=== PATIENT | male | born 1935 | race African-American/Black ===

== ENCOUNTER 2019-01-16 19:52 | Inpatient (IN) | payer MEDICARE, OTHER ==
--- NOTE | 2019-01-16 20:32 | ED Physician Chart ---
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 His care takers at the [facility] thought patient's left-sided weakness was more than it usually is this morning and he also had increased blood pressure, not stated to the daughter how high. Allergies:: Allergies Allergy/AdvReac Type Severity Reaction Status Date / Time codeine Allergy Verified 01/16/19 20:10 lactose Allergy Verified 01/16/19 20:10 morphine Allergy Verified 01/16/19 20:10 Penicillins Allergy Verified 01/16/19 20:10 Vitals:: Vital Signs - 8 hr 01/16/19 19:55 Temp 98.1 F HR 64 RR 20 BP 111/55 O2 Sat % 97 Historian:: Patient, Family Member Review:: Nurse's Note Reviewed ED Review of Systems - Review of Systems General/Constitutional: No fever Skin: No skin lesions Head: No headache Eyes: No loss of vision ENT: No earache Neck: No neck pain Cardio Vascular: No chest pain, No palpitations Pulmonary: No SOB GI: No nausea, No vomiting, No diarrhea G/U: No dysuria Musculoskeletal: No bone or joint pain, No back pain, No muscle pain Endocrine: No polyuria Psychiatric: No prior psych history, No depression, No anxiety Hematopoietic: No bruising Allergic/Immuno: No urticaria Neurological: No syncope, Focal symptoms ED Past Medical History - Past Medical History Past Medical History: HTN, Dyslipidemia (hyperlipidemia), Other (right arm tremor for many years) Family History: None Social History: Care Facility, Other (former smoker and alcohol consumer) Medication: Reviewed Family Medical History - Family Member Daughter Ethnicity: Non- Living Status: Still Living ED Physical Exam - Physical Examination General/Constitutional: Awake, Alert Other Gen/Cons comments:: Mildly chronically ill-appearing Head: Atraumatic Eyes: Lids, conjuctiva normal, PERRL Skin: Nl inspection, No rash, No skin lesions, No ecchymosis ENMT: External ears, nose nl, Oropharynx nl Other ENMT comments:: Few teeth present Neck: No nuchal rigidity, No bruit Respiratory: Nl effort/Exclusion, Clear to Auscultation Cardio Vascular: RRR, No murmur, gallop, rubs, NL S1 S2 GI: No tenderness/rebounding/guarding, No organomegaly, No hernia, Normal BS's, Nondistended, No mass/bruits Extremities: Normal digits & nails Other Neuro/Psych comments:: drooping right side of mouth and left sided weakness ED Labs/Radiology/EKG Results - Radiology Results Results: Chest x-ray showed cardiomegaly and pacemaker present; she has showed right temporal parietal infarct and right middle cerebral artery distribution, mild edema, no bleed, no shift, atrophy - EKG Interpretations Rate & Rhythm: atrial and ventricular pacemaker with a rate of 59 ED Septic Shock - <6hrs of presentation: Vital Signs: Vital Signs - 8 hr 01/16/ 19:55 Temp 98.1 F HR 64 RR 20 BP 111/55 O2 Sat % 97 ED Reassessment (Disposition) - Reassessment Reassessment Condition:: Unchanged - Diagnosis Diagnosis:: Right temporoparietal infarct - Patient Disposition Spoke to:: Jeramy Evans Admitting Medical Physician:: Jeramy Evans Condition at Disposition:: Stable, Unchanged
[2019-01-16 20:43] LABS: % BASOPHILS 0.1 % (0.0-2.0); % EOSINOPHILS 3.8 % (0.0-5.0); % LYMPHOCYTES 9.5 % (20.0-50.0); % NEUTROPHILS 77.6 % (40.0-80.0); EOSINOPHILE ABSOLUTE 0.4 Th/cmm (0.1-0.4); HEMOGLOBIN 13.8 gm/dL (12-16); MEAN CELL VOLUME 83.5 fl (80-99); MEAN CORPUSCULAR HEMOGLOBIN 27.5 pg (27.0-31.0); MEAN CORPUSCULAR HGB CONC 32.9 pg (28.0-36.0); MEAN PLATELET VOLUME 8.2 fl; NEUTROPHILE ABSOLUTE 8.6 Th/cmm (1.8-8.0); PLATELET COUNT 223 Th/cmm (150-400); RED BLOOD COUNT 5.03 Mil/cmm (3.80-5.80); RED CELL DISTRIBUTION WIDTH 14.2 % (11.5-20.0)
[2019-01-16 20:58] LABS: ANION GAP 15.1 (7.0-16.0); BUN - UREA NITROGEN 17 mg/dL (7-25); CALCIUM SERUM 6.6 mg/dL (8.6-10.3); CARBON DIOXIDE 21.9 mEq/L (21.0-31.0); CHLORIDE 105 mEq/L (98-107); CREATININE - SERUM 1.2 mg/dL (0.7-1.3); GLUCOSE 297 mg/dL (70-105); SODIUM SERUM 139 mEq/L (136-145)
[2019-01-16 23:42] VITALS: BP 150/69
[2019-01-17] MEDS ORDERED: GLUCAGON HCl 1 MG KIT IM PRN (00:46)
[2019-01-17] MEDS ORDERED: Dextrose 50% 50 mL Abboject IVP PRN (00:46)
[2019-01-17] MEDS ORDERED: Albuterol Nebulizer 2.5mg/3mL HHN PRN ×2 (00:49→01:00)
[2019-01-17] MEDS: INSULIN LISPRO SLIDING SCALE 100 UNITS/ML UNIT SUBQ SCH ×5 (01:16→21:08)
[2019-01-17] MEDS ORDERED: Maalox 30 mL Cup PO PRN (06:42)
[2019-01-17] MEDS ORDERED: Albuterol/Ipratropium Neb 3 ML AERS HHN PRN (06:42)
[2019-01-17] MEDS ORDERED: cefTRIAXone 1 GM in Sodium Chloride 0.9% 50 ML IV ONE (07:00)
[2019-01-17] MEDS: KCL 20mEq/100mL Premix 20 MEQ/100 ML PIGGYBACK IV SCH ×2 (07:54→11:04)
[2019-01-17 07:56] LABS: ANION GAP 15.8 (7.0-16.0); BUN - UREA NITROGEN 18 mg/dL (7-25); CALCIUM SERUM 6.7 mg/dL (8.6-10.3); CARBON DIOXIDE 23.1 mEq/L (21.0-31.0); CHLORIDE 107 mEq/L (98-107); CHOLESTEROL 104 mg/dL (<200); CREATININE - SERUM 1.2 mg/dL (0.7-1.3); HDL -HIGH DENSITY LIPOPROTEIN 23 mg/dL (23-92); SODIUM SERUM 143 mEq/L (136-145); TRIGLYCERIDES 85 mg/dL (<150)
[2019-01-17 07:59] LABS: % BASOPHILS 0.4 % (0.0-2.0); % EOSINOPHILS 4.2 % (0.0-5.0); % LYMPHOCYTES 13.7 % (20.0-50.0); % MONOCYTES 10.5 % (2.0-10.0); % NEUTROPHILS 71.2 % (40.0-80.0); EOSINOPHILE ABSOLUTE 0.4 Th/cmm (0.1-0.4); HEMATOCRIT 40.3 % (41.0-60); HEMOGLOBIN 12.8 gm/dL (12-16); LYMPHOCYTE ABSOLUTE 1.2 Th/cmm (1.5-3.0); MEAN CELL VOLUME 84.8 fl (80-99); MEAN CORPUSCULAR HGB CONC 31.8 pg (28.0-36.0); MEAN PLATELET VOLUME 8.3 fl; MONOCYTE ABSOLUTE 0.9 Th/cmm (0.3-1.0); NEUTROPHILE ABSOLUTE 6.5 Th/cmm (1.8-8.0); PLATELET COUNT 238 Th/cmm (150-400); RED BLOOD COUNT 4.74 Mil/cmm (3.80-5.80); RED CELL DISTRIBUTION WIDTH 14.6 % (11.5-20.0)
--- NOTE | 2019-01-17 08:16 | Diagnostic Imaging Report ---
Portable chest x-ray HISTORY: Shortness of breath The heart is enlarged. Cardiac pacemaker lead wires project over the right atrium and right ventricle. Allowing for a poor inspiration, no acute focal prominent processes are seen. Surgical clips project over the epigastric region of the abdomen. IMPRESSION: 1. Allowing for a poor inspiration, no acute focal pulmonary processes 2. Cardiomegaly with pacemaker placement
[2019-01-17 08:21] LABS: POTASSIUM SERUM 2.9 mEq/L (3.5-5.1)
[2019-01-17 08:22] LABS: GLUCOSE 145 mg/dL (70-105)
[2019-01-17] MEDS: cefTRIAXone 1 GM in Sodium Chloride 0.9% 50 ML IV SCH (09:26)
--- NOTE | 2019-01-17 09:27 | History and Physical ---
History of Present Illness - HPI Chief Complaint: 83 y/o male patient was brought into ER due to High blood pressure and increased left sided-weakness. Patient had CVA x 2 months ago with residual left sided-weakness. Patient's care takers state that he has Increased left sided-weakness more than usual. HPI: 83 y/o male patient was admitted at [facility] due to High blood pressure , increased left sided-weakness and shortness of breath. Patient had CVA x 2 months ago with residual left sided-weakness. Patient's care takers state that he has Increased left sided-weakness more than usual. Patient has history of Hypertension, Dyslipidemia, Hyperlipidimia and Right arm tremor. Patient had an ER assessment and a complete workup was done. Patient had a chest x-ray done which showed Cardiomegaly with pacemaker placement, Right temporoparietal infarct and Right middle cerebral artery distribution, mild edema, no bleed, no shift, atrophy. Patient was diagnosed with Cardiomegaly and Right temporoparietal infarct. Patient will have a Cardiology consult and I will follow,treat and monitor patient. Patient will continue current treatment plan as ordered. Vital Signs: Last Vital Signs Temp 98.1 F 01/17/19 08:00 Pulse 68 01/17/19 08:00 Resp 19 01/17/19 08:00 BP 134/54 01/17/19 08:00 Pulse Ox 97 01/17/19 08:00 Past Medical History Cardiovascular: Report: HTN, Hyperlipidemia, Other (Hx of CVA with Left sided weakness.) Pulmonary: Report: No Pertinent Hx WEB COORDINATOR: Report: CVA GI: Report: No Pertinent Hx Psych: Report: No Pertinent Hx Musculoskeletal: Report: Weakness Rheumatologic: Report: No pertinent Hx Infectious Disease: Report: No Pertinent Hx Renal/: Report: No Pertinent Hx Endocrine: Report: No Pertinent Hx Dermatology: Report: No Pertinent Hx - Past Surgical History Past Surgical History: Other (Pacemaker placement.) Family Medical History - Family Member Daughter History Unknown: Yes Ethnicity: Unknown Living Status: Unknown Hx Family Cancer: (unknown) Hx Family Coronary Artery Disease: (UNKNOWN) Hx Family Congestive Heart Failure: (UNKNOWN) Hx Family Hypertension: (UNKNOWN) Hx Family Stroke: (UNKNOWN) Hx Family Diabetes: (UNKNOWN) Hx Family Seizures: (UNKNOWN) Hx Family Dementia: (UNKNOWN) Hx Family AIDS: (UNKNOWN) Hx Family COPD: (UNKNOWN) Hx Family Hepatitis: (UNKNOWN) Hx Family Psychiatric Problems: (UNKNOWN) Hx Family Tuberculosis: (UNKNOWN) Other Medical History: UNKNOWN Social History Smoke: No Alcohol: None Drugs: None Lives: [facility] Domestic Violence: Negative Health Maintenance Health Maintenance: Other (see chart.) - Medications Home Medications: Home Medication Medication Instructions Recorded Type Acetaminophen [Tylenol] 650 mg PO Q4HR PRN 01/16/19 History Albuterol/Ipratropium Neb [Duoneb 3 ml HHN Q4HR PRN 01/16/19 History Neb] Amlodipine Besylate 10 mg PO DAILY 01/16/19 History Aspirin EC [Ecotrin] 81 mg PO DAILY 01/16/19 History Atorvastatin Calcium [Lipitor] 40 mg PO HS 01/16/19 History Carboxymethylcellulose Sodium 1 drop EACH EYE Q4HR PRN 01/16/19 History [Refresh Plus] Clopidogrel Bisulfate [Clopidogrel] 75 mg PO DAILY 01/16/[address] [Cymbalta] 60 mg PO DAILY 01/16/19 History Furosemide 20 mg PO DAILY 01/16/19 History Insulin Lispro Sliding Scale See Protocol SUBQ BID 01/16/19 History [humaLOG INSULIN SLIDING SCALE] Insulin Lispro Sliding Scale See Protocol SUBQ HS 01/16/19 History [humaLOG INSULIN SLIDING SCALE] Insulin NPH Human Isophane 10 unit SQ HS 01/16/19 History [Humulin N] Mag Hydrox/Al Hydrox/Simeth 30 ml PO Q4HR PRN 01/16/19 History [Aluminum & Magnesium Hydroxide/Simethicone 35] Metoprolol Succinate 100 mg PO DAILY 01/16/19 History Pantoprazole Sodium 20 mg PO DAILY 01/16/19 History Peg 400/Hypromellose/Glycerin 1 drop EACH EYE TID 01/16/19 History [Artificial Tears 0.2%-0.2%-1% 15 ml] Primidone [Mysoline] 50 mg PO DAILY 01/16/19 History Tamsulosin [Flomax] 0.4 mg PO QPM 01/16/19 History risperiDONE [RisperDAL] 0.5 mg PO BID 01/16/19 History Other Medications: Please see medication reconciliation sheet. - Allergies Allergies/Adverse Reactions: Allergies Allergy/AdvReac Type Severity Reaction Status Date / Time codeine Allergy Verified 01/16/19 20:10 lactose Allergy Verified 01/16/19 20:10 morphine Allergy Verified 01/16/19 20:10 Penicillins Allergy Verified 01/16/19 20:10 Review of Systems - Review of Systems Constitutional: Report: Weakness Eyes: Report: No Significant ENT: Report: No Significant Respiratory: Report: No Significant Cardiovascular: Report: Other (Shortness of breath and Increased Left sided weakness.) Gastrointestinal: Report: No Significant Genitourinary: Report: No Significant Musculoskeletal: Report: Other (Right arm tremors.) Skin: Report: No Significant Neurological: Report: Weakness Physical Exam - Physical Exam HEENT: Report: Ears Nose Throat within normal limits Neck: Report: Within normal limits Cardiovascular Systems: Report: Other (Pacemaker present.) Respiratory: Report: Other (Shortness of breath.) Abdomen: Report: Non-tender to palpation Back: Report: Inspection of back is within normal limits. Extremities: Report: Other (Left sided weakness and right arm tremors.) - Lab Results All Lab Results last 24 hours: Laboratory Results - last 24 hr 01/16/19 01/16/19 01/16/19 20:37 20:37 23:37 WBC 11.0 H RBC 5.03 Hgb 13.8 Hct 42.0 MCV 83.5 MCH 27.5 MCHC Differential 32.9 RDW 14.2 Plt Count 223 MPV 8.2 Neutrophils % 77.6 Lymphocytes % 9.5 L Monocytes % 9.0 Eosinophils % 3.8 Basophils % 0.1 Sodium 139 Potassium 3.0 L Chloride 105 Carbon Dioxide 21.9 Anion Gap 15.1 BUN 17 Creatinine 1.2 Est GFR ( Amer) TNP Est GFR (Non-Af Amer) TNP BUN/Creatinine Ratio 14.2 Glucose 297 H POC Glucose 304 H Calcium 6.6 L Triglycerides Cholesterol LDL Cholesterol Direct HDL Cholesterol 01/17/19 01/17/19 01/17/19 06:31 07:30 07:30 WBC 9.0 RBC 4.74 Hgb 12.8 Hct 40.3 L MCV 84.8 MCH 27.0 MCHC Differential 31.8 RDW 14.6 Plt Count 238 MPV 8.3 Neutrophils % 71.2 Lymphocytes % 13.7 L Monocytes % 10.5 H Eosinophils % 4.2 Basophils % 0.4 Sodium 143 Potassium 2.9 L* Chloride 107 Carbon Dioxide 23.1 Anion Gap 15.8 BUN 18 Creatinine 1.2 Est GFR ( Amer) TNP Est GFR (Non-Af Amer) TNP BUN/Creatinine Ratio 15.0 Glucose 145 H D POC Glucose 129 H Calcium 6.7 L Triglycerides 85 Cholesterol 104 LDL Cholesterol Direct 64 L HDL Cholesterol 23 - Assessment Assessment: Cardiomegaly. Right temporoparietal infarct. History of Hypertension. History of Dyslipidemia. History of Hyperlipidimia. History of Right arm tremor. History of CVA with Increased Left sided weakness. - Plan Plan: Continuation of care. Continue present meds as directed. Cardiology consult. Monitor Labs and Diet. Fall precaution. Physical therapy. Occupational therapy. Continue current treatment plan.
--- NOTE | 2019-01-17 10:26 | Diagnostic Imaging Report ---
CT scan of the brain without intravenous contrast HISTORY: Stroke, CVA Total DLP equals 1093 CTDI equals 54.8 Axial sections were obtained from the base of the skull the vertex. There is generalized enlargement of the ventricular system along with enlargement of cerebral sulci and subarachnoid cisterns reflecting cerebral atrophy. Extensive hypodensity is noted throughout the supratentorial and periventricular white matter regions. No mass effect. The findings may be associated with chronic small vessel ischemic disease. Somewhat more focal hypodensity is slight volume loss noted in the right frontal and left occipital regions. Tiny may be associated with old infarcts. Hypodensity also noted within the cortex the right temporal region that may reflect and cephalization related to an old infarct. Subcentimeter hypodense foci seen in the basal ganglia region suggesting old lacunar infarcts. No acute intracerebral abnormalities. Specifically, no acute intracerebral hemorrhage. Again, no mass effect or shift of midline structures. No extra-axial masses or abnormal fluid collections. Mild mucosal thickening noted in the left maxillary sinus. More pronounced mucosal thickening noted in the right ethmoid sinus region. Atherosclerotic calcification seen in the region of the vertebral arteries at the base of the skull. IMPRESSION: 1. Findings consistent with multifocal old cerebral infarcts as noted above 2. No acute intracerebral abnormalities 3. Generalized cerebral atrophy 4. Extensive supratentorial white matter changes. The findings may be associated with chronic small vessel ischemic disease. If indicated, a follow-up MRI exam may provide for further assessment and evaluation. 5. Atherosclerotic vascular changes
[2019-01-17] MEDS ORDERED: Probiotic Screen MC PRN (14:18)
[2019-01-17] MEDS ORDERED: VTE Chemical Prophylaxis Screen/Admission MC PRN (16:29)
--- NOTE | 2019-01-17 23:57 | Consultation ---
DATE OF CONSULTATION: 01/17/2019 NEUROLOGY CONSULTATION HISTORY OF PRESENT ILLNESS: An 83-year-old. The patient admitted with left-sided weakness. The patient apparently has had a stroke in the last few weeks. The patient's weakness in the left side and noticed that the patient is getting increasing weakness. He will talk somewhat confused. No seizures. No headache. PAST MEDICAL HISTORY: 1. The patient's stroke. 2. COPD. 3. Diabetes. 4. The patient with seizures. 5. History of arrhythmias. 6. The patient with cardiac pacemaker. 7. Dementia. 8. Hypertension. 9. Hyperlipidemia. 10. Alcohol abuse in the past. MEDICATIONS: As per reconciliation. The patient on amlodipine, Lasix, Plavix, duloxetine, aspirin, Lipitor, and Risperdal. REVIEW OF SYSTEMS: Twelve point negative except for above. PHYSICAL EXAMINATION VITAL SIGNS: Temperature 98.1, blood pressure 120/60, and pulse is 62. NECK: Supple. No neck bruits. HEART: Normal heart sounds. LUNGS: Clear. NEUROLOGIC: The patient is awake and alert. He will answer to his name. The patient able to name objects. Face droop on the left side with the patient difficult to know if any visual field defect, though he seems to identify objects in both davis. Somewhat more on the right. MOTOR: Really not much movement of the left arm. Legs, he is weak on both legs, but much weak on the left. INVESTIGATIONS: Had a CT scan done 01/16/2019, which shows a right temporoparietal infarction in the right MCA, some mild edema. No bleed, no shift. IMPRESSION: 1. 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 2. Hypertension. 3. Diabetes. 4. Pacemaker. 5. Some tremor on the right side for many years. 6. Question of seizure, though not on any medication. PLAN: Carotid Doppler studies. Physical therapy, rehabilitation. JOB# [id number]
--- NOTE | 2019-01-18 06:28 | Consultation ---
DATE OF CONSULTATION: 01/17/2019 HISTORY AND PHYSICAL: This is an 83-year-old male patient who has been complaining of weakness, which got worse on the left side more than before. At this time, the patient was worked with possible stroke. The patient has hypertension, which was poorly controlled. PAST MEDICAL HISTORY: Hypertension, CVA with left-sided weakness, hyperlipidemia, right arm tremors from essential tremors, sick sinus syndrome with pacemaker, BPH, diabetes mellitus type 2, insulin-dependent. FAMILY HISTORY: Unremarkable. SOCIAL HISTORY: No history of smoking, alcohol abuse. ALLERGIES: None. PHYSICAL EXAMINATION: VITAL SIGNS: Blood pressure 138/80, pulse 70, respirations 20. HEENT: Head: Normocephalic. No lumps or bumps. Eyes: Pupils equal, reactive to light. Fundi show AV nicking. Sclerae white. Conjunctivae pink. NECK: Carotid 2+. Normal upstroke. JVD flat. Thyroid not palpable. Lymph nodes not palpable. CHEST: Shows increased AP diameter. No kyphosis, scoliosis. LUNGS: Bilateral bronchovesicular breath sounds. HEART: PMI fifth intercostal space with lateral to midclavicular line. S1, S2, soft S3, S4. ABDOMEN: Soft. Liver, spleen not palpable. No organomegaly. Bowel sounds active. NEUROLOGIC: The patient has left-sided weakness, tremors in the right arm. CLINICAL IMPRESSION: Cerebrovascular accident with left-sided weakness, right middle cerebral artery infarct, hypertension uncontrolled, hyperlipidemia, essential tremors of the right arm, sick sinus syndrome with pacemaker, benign prostatic hypertrophy, diabetes mellitus type 2, insulin-dependent, and dementia. PLAN: The patient to continue present management, monitor the patient closely, we will also get echocardiogram. JOB# [id number]
[2019-01-18] MEDS: INSULIN LISPRO SLIDING SCALE 100 UNITS/ML UNIT SUBQ SCH ×4 (08:19→20:30)
[2019-01-18] MEDS: cefTRIAXone 1 GM in Sodium Chloride 0.9% 50 ML IV SCH (08:24)
[2019-01-18] MEDS: Lactobacillus Rhamnosus GG 15 Billion CFU CAP.SPRINK PO SCH (08:33)
[2019-01-18 09:12] LABS: % BASOPHILS 0.2 % (0.0-2.0); % EOSINOPHILS 4.5 % (0.0-5.0); % LYMPHOCYTES 14.8 % (20.0-50.0); % MONOCYTES 9.2 % (2.0-10.0); % NEUTROPHILS 71.3 % (40.0-80.0); EOSINOPHILE ABSOLUTE 0.4 Th/cmm (0.1-0.4); HEMATOCRIT 40.4 % (41.0-60); HEMOGLOBIN 13.1 gm/dL (12-16); LYMPHOCYTE ABSOLUTE 1.4 Th/cmm (1.5-3.0); MEAN CELL VOLUME 83.8 fl (80-99); MEAN CORPUSCULAR HEMOGLOBIN 27.2 pg (27.0-31.0); MEAN CORPUSCULAR HGB CONC 32.5 pg (28.0-36.0); MEAN PLATELET VOLUME 8.6 fl; MONOCYTE ABSOLUTE 0.9 Th/cmm (0.3-1.0); NEUTROPHILE ABSOLUTE 6.8 Th/cmm (1.8-8.0); PLATELET COUNT 203 Th/cmm (150-400); RED BLOOD COUNT 4.82 Mil/cmm (3.80-5.80); RED CELL DISTRIBUTION WIDTH 14.2 % (11.5-20.0); WHITE BLOOD COUNT 9.5 Th/cmm (4.8-10.8)
[2019-01-18 09:27] LABS: ALB/GLOB RATIO 1.7 (1.0-1.8); ALBUMIN 3.4 gm/dL (4.2-5.5); ALKALINE PHOSPHATASE 91 U/L (34-104); ANION GAP 15.5 (7.0-16.0); BILIRUBIN,TOTAL 0.5 mg/dL (0.3-1.0); BUN - UREA NITROGEN 18 mg/dL (7-25); CALCIUM SERUM 6.4 mg/dL (8.6-10.3); CARBON DIOXIDE 20.6 mEq/L (21.0-31.0); CHLORIDE 106 mEq/L (98-107); CREATININE - SERUM 1.1 mg/dL (0.7-1.3); GLUCOSE 298 mg/dL (70-105); POTASSIUM SERUM 3.1 mEq/L (3.5-5.1); SGOT 18 U/L (13-39); SGPT/ALT 15 U/L (7-52); SODIUM SERUM 139 mEq/L (136-145); TOTAL PROTEIN,SERUM 5.4 gm/dL (6.0-8.3)
[2019-01-18] MEDS ORDERED: Potassium Chloride 40 MEQ, Lidocaine 1% 20mL Vial 25 MG in Sodium Chloride 0.9% 250 ML IV ONE (12:30)
--- NOTE | 2019-01-18 14:39 | General Progress Note ---
Subjective - Review of Systems Service Date: 01/18/19 Subjective: Patient has less shortness of breath Objective - Results Result Diagrams: 01/18/19 09:00 01/18/19 09:00 Recent Labs: Laboratory Last Values WBC 9.5 Th/cmm (4.8-10.8) 01/18/19 09:00 RBC 4.82 Mil/cmm (3.80-5.80) 01/18/19 09:00 Hgb 13.1 gm/dL (12-16) 01/18/19 09:00 Hct 40.4 % (41.0-60) L 01/18/19 09:00 MCV 83.8 fl (80-99) 01/18/19 09:00 MCH 27.2 pg (27.0-31.0) 01/18/19 09:00 MCHC Differential 32.5 pg (28.0-36.0) 01/18/19 09:00 RDW 14.2 % (11.5-20.0) 01/18/19 09:00 Plt Count 203 Th/cmm (150-400) 01/18/19 09:00 MPV 8.6 fl 01/18/19 09:00 Neutrophils % 71.3 % (40.0-80.0) 01/18/19 09:00 Lymphocytes % 14.8 % (20.0-50.0) L 01/18/19 09:00 Monocytes % 9.2 % (2.0-10.0) 01/18/19 09:00 Eosinophils % 4.5 % (0.0-5.0) 01/18/19 09:00 Basophils % 0.2 % (0.0-2.0) 01/18/19 09:00 Sodium 139 mEq/L (136-145) 01/18/19 09:00 Potassium 3.1 mEq/L (3.5-5.1) L 01/18/19 09:00 Chloride 106 mEq/L (98-107) 01/18/19 09:00 Carbon Dioxide 20.6 mEq/L (21.0-31.0) L 01/18/19 09:00 Anion Gap 15.5 (7.0-16.0) 01/18/19 09:00 BUN 18 mg/dL (7-25) 01/18/19 09:00 Creatinine 1.1 mg/dL (0.7-1.3) 01/18/19 09:00 Est GFR ( Amer) TNP 01/18/19 09:00 Est GFR (Non-Af Amer) TNP 01/18/19 09:00 BUN/Creatinine Ratio 16.4 01/18/19 09:00 Glucose 298 mg/dL (70-105) H 01/18/19 09:00 POC Glucose 216 MG/DL (70 - 105) H 01/18/19 12:18 Calcium 6.4 mg/dL (8.6-10.3) L 01/18/19 09:00 Total Bilirubin 0.5 mg/dL (0.3-1.0) 01/18/19 09:00 AST 18 U/L (13-39) 01/18/19 09:00 ALT 15 U/L (7-52) 01/18/19 09:00 Alkaline Phosphatase 91 U/L (34-104) 01/18/19 09:00 B-Natriuretic Peptide 278.0 pg/mL (5.0-100.0) H 01/18/19 04:55 Total Protein 5.4 gm/dL (6.0-8.3) L 01/18/19 09:00 Albumin 3.4 gm/dL (4.2-5.5) L 01/18/19 09:00 Globulin 2.0 gm/dL 01/18/19 09:00 Albumin/Globulin Ratio 1.7 (1.0-1.8) 01/18/19 09:00 Triglycerides 85 mg/dL (<150) 01/17/19 07:30 Cholesterol 104 mg/dL (<200) 01/17/19 07:30 LDL Cholesterol Direct 64 mg/dL (75-193) L 01/17/19 07:30 HDL Cholesterol 23 mg/dL (23-92) 01/17/19 07:30 TSH 1.01 uIU/ml (0.34-5.60) 01/17/19 07:30 - Physical Exam Vitals and I&O: Vital Signs Temp 98.6 F 01/18/19 12:00 Pulse 72 01/18/19 12:00 Resp 18 01/18/19 12:00 BP 115/63 01/18/19 12:00 Pulse Ox 98 01/18/19 12:00 Intake & Output 01/17/19 01/18/19 01/18/19 18:59 06:59 18:59 Intake Total 150 100 Balance 150 100 Weight (lbs) 86.183 kg 86.183 kg Intake: Intake, IV Amount 150 KCL 20mEq/100mL Premix 20 100 meq In 100 ml @ 50 mls/ hr IV Q2H [facility] Rx#: [id number] cefTRIAXone 1 gm In 50 Sodium Chloride 0.9% 50 ml @ 100 mls/hr IV DAILY@ 0800 [facility] Rx#:[id number] Oral 100 Other: # Voids 2 2 # Bowel Movements 1 0 Weight Source Bedscale Bedscale Active Medications: Current Medications Acetaminophen (Tylenol) 650 mg PO Q4H PRN PRN Reason: Pain (Moderate) Stop: 03/18/19 01:58 Last Admin: 01/18/19 10:35 Dose: 650 mg Acetaminophen (Tylenol) 650 mg PO Q4HR PRN PRN Reason: Pain or Fever >101 Stop: 03/18/19 06:41 Al Hydrox/Mg Hydrox/Simethicone (Maalox) 30 ml PO Q4HR PRN PRN Reason: GI DISTRESS Stop: 03/18/19 06:41 Albuterol Sulfate (Albuterol 2.5mg/3ml Neb Ud) 2.5 mg HHN Q4HRT PRN PRN Reason: WHEEZING, SOB Stop: 03/18/19 00:48 Albuterol/Ipratropium (Duoneb Neb) 3 ml HHN Q4HRT PRN PRN Reason: Shortness of Breath Stop: 03/18/19 06:41 Amlodipine Besylate (Norvasc) 10 mg PO DAILY [facility] Stop: 03/18/19 08:59 Last Admin: 01/18/19 08:36 Dose: 10 mg Aspirin (Ecotrin) 81 mg PO DAILY [facility] Stop: 03/18/19 08:59 Last Admin: 01/18/19 08:33 Dose: 81 mg Atorvastatin Calcium (Lipitor) 40 mg PO HS [facility] Stop: 03/18/19 20:59 Last Admin: 01/17/19 21:01 Dose: 40 mg Clopidogrel Bisulfate (Plavix) 75 mg PO DAILY [facility] Stop: 03/18/19 08:59 Last Admin: 01/18/19 08:33 Dose: 75 mg Dextrose (D50w) 50 ml IVP PRN PRN PRN Reason: Blood Glucose less than 70 Stop: 03/18/19 00:45 Dextrose (Glutose 40%) 18.75 gm PO PRN PRN PRN Reason: Blood Glucose less than 70 Stop: 03/18/19 00:45 Duloxetine HCl (Cymbalta) 60 mg PO DAILY [facility]; Protocol Stop: 03/18/19 08:59 Furosemide (Lasix) 20 mg PO DAILY [facility] Stop: 03/18/19 08:59 Last Admin: 01/18/19 10:06 Dose: Not Given Glucagon (Glucagen) 1 mg IM PRN PRN PRN Reason: Blood Glucose less than 70 Stop: 03/18/19 00:45 Heparin Sodium (Porcine) (Heparin) 5,000 units SUBQ Q12H [facility] Stop: 03/18/19 20:59 Last Admin: 01/18/19 08:30 Dose: 5,000 units Ceftriaxone Sodium 1 gm/ (Sodium Chloride) 50 mls @ 100 mls/hr IV DAILY@0800 [facility] Stop: 03/18/19 07:59 Last Admin: 01/18/19 08:24 Dose: 100 mls/hr Potassium Chloride 40 meq/Lidocaine HCl 25 mg/ Sodium Chloride 272.5 mls @ 68 mls/hr IV X1 ONE Stop: 01/18/19 16:30 Last Admin: 01/18/19 12:59 Dose: 68 mls/hr Insulin Human Lispro (Humalog Insulin Sliding Scale) 0 units SUBQ ACHS [facility]; Protocol Stop: 03/18/19 07:29 Last Admin: 01/18/19 12:25 Dose: 4 units Lactobacillus Rhamnosus (Culturelle 15b) 1 each PO DAILY [facility] Stop: 03/19/19 08:59 Last Admin: 01/18/19 08:33 Dose: 1 each Miscellaneous (Probiotic Screen) 1 ea PRN PRN PRN Reason: PROTOCOL Stop: 03/18/19 14:17 Miscellaneous (Vte Chemical Prophylaxis Screen/ Admission) 1 ea PRN PRN PRN Reason: PROTOCOL Stop: 03/18/19 16:28 Primidone (Mysoline) 50 mg PO DAILY [facility] Stop: 03/18/19 08:59 Last Admin: 01/18/19 08:33 Dose: 50 mg Risperidone (Risperdal) 0.5 mg PO BID [facility]; Protocol Stop: 03/18/19 08:59 Tamsulosin HCl (Flomax) 0.4 mg PO QPM [facility] Stop: 03/18/19 16:59 Last Admin: 01/17/19 17:05 Dose: 0.4 mg General: No acute distress HEENT: Mucous membr. 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 Diabetes mellitus type 2 Hyperlipidemia Hypertension Insulin-dependent diabetes mellitus BPH sich sinus syndrome pacemaker - Plan Plan: Continue same management Potassium supplement Nutritional Asmnt/Malnutr-PDOC - Dietary Evaluation Malnutrition Findings (Please click <Entered> for more info): Nutritional Asmnt/Malnutrition Start: 01/17/19 16: 51 Text: Status: Complete Freq: Protocol: Document 01/17/19 16:51 LCHENG (Rec: 01/17/19 17:17 LCHENG [id number]) Nutritional Asmnt/Malnutrition Patient General Information Nutritional Screening High Risk Consult Diagnosis CVA Pertinent Medical Hx/Surgical Hx HTN, dyslipidemia, tremer Subjective Information Pt seen lying in bed at time of visit, awake, not answering RD greeting. Consult received for BS 297 at admission. Not able to provide diabetic education d/t pt mental status . Pt had swallow eval today d/ t s/p stroke [address] recommended downgrade to pureed thin liquid. 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 Current Diet Order/ Nutrition Support pureed Pertinent Medications lipitor, lasix, heparin, humalog, culturelle Pertinent Labs 01/17 K 2.9, glucose 145, POC 129-174 Nutritional Hx/Data Height 1.73 m Height (Calculated Centimeters) 172.7 Current Weight (lbs) 86.183 kg Weight (Calculated Kilograms) 86.2 Weight (Calculated Grams) 36625.6 [place] Body Weight 154 Body Mass Index (BMI) 28.8 Weight Status Overweight GI Symptoms GI Symptoms None Last BM none Difficult in: None Skin Integrity/Comment: intact DISCOLORATION to sacrum and both abdomen reddend to groin, bruise to R/ L upper hand alonso 13 Current %PO Good (75-100%) Estimated Nutritional Goals BEE in Kcals: Using Current wt Calories/Kcals/Kg 20-25 Kcals Calculated 5746-4452 Protein: Using Current wt Protein g/k Protein Calculated 86 Fluid: ml 1720-2150ml (1ml/kcal) Nutritional Problem 1. Problem Problem altered nutrition related labs Etiology hyperglycemia Signs/Symptoms: glucose 145, POC 129-174 Malnutrition Alert Is there a minimum of two criteria No selected? Query Text:Check all the applicable criteria. A minimum of two criteria are recommended for diagnosis of either severe or non-severe malnutrition. Malnutrition Related to Morbid Obesity Malnutrition related to morbid obesity No Intervention/Recommendation Comments 1. Continue with pureedt diet as ordered. Recommend adding CCHO diet for optimal glycemic control. RN notified. 2. Monitor PO intake, wt, labs and skin integrity 3. F/U as moderate risk in 3-5 days Expected Outcomes/Goals Expected Outcomes/Goals 1. PO intake to meet at least 75% of nutritional needs. 2. Wt stability, skin to remain intact, labs to approach WNL.
--- NOTE | 2019-01-18 14:51 | Internal Medicine Prog Note ---
Internal Medicine Subjective - Subjective Service Date: 01/18/19 Patient is:: awake Per staff patient has:: tolerating meds, refusing care, refusing labs Internal Medicine Objective - Results Result Diagrams: 01/18/19 09:00 01/18/19 09:00 Recent Labs: Laboratory Last Values WBC 9.5 Th/cmm (4.8-10.8) 01/18/19 09:00 RBC 4.82 Mil/cmm (3.80-5.80) 01/18/19 09:00 Hgb 13.1 gm/dL (12-16) 01/18/19 09:00 Hct 40.4 % (41.0-60) L 01/18/19 09:00 MCV 83.8 fl (80-99) 01/18/19 09:00 MCH 27.2 pg (27.0-31.0) 01/18/19 09:00 MCHC Differential 32.5 pg (28.0-36.0) 01/18/19 09:00 RDW 14.2 % (11.5-20.0) 01/18/19 09:00 Plt Count 203 Th/cmm (150-400) 01/18/19 09:00 MPV 8.6 fl 01/18/19 09:00 Neutrophils % 71.3 % (40.0-80.0) 01/18/19 09:00 Lymphocytes % 14.8 % (20.0-50.0) L 01/18/19 09:00 Monocytes % 9.2 % (2.0-10.0) 01/18/19 09:00 Eosinophils % 4.5 % (0.0-5.0) 01/18/19 09:00 Basophils % 0.2 % (0.0-2.0) 01/18/19 09:00 Sodium 139 mEq/L (136-145) 01/18/19 09:00 Potassium 3.1 mEq/L (3.5-5.1) L 01/18/19 09:00 Chloride 106 mEq/L (98-107) 01/18/19 09:00 Carbon Dioxide 20.6 mEq/L (21.0-31.0) L 01/18/19 09:00 Anion Gap 15.5 (7.0-16.0) 01/18/19 09:00 BUN 18 mg/dL (7-25) 01/18/19 09:00 Creatinine 1.1 mg/dL (0.7-1.3) 01/18/19 09:00 Est GFR ( Amer) TNP 01/18/19 09:00 Est GFR (Non-Af Amer) TNP 01/18/19 09:00 BUN/Creatinine Ratio 16.4 01/18/19 09:00 Glucose 298 mg/dL (70-105) H 01/18/19 09:00 POC Glucose 216 MG/DL (70 - 105) H 01/18/19 12:18 Calcium 6.4 mg/dL (8.6-10.3) L 01/18/19 09:00 Total Bilirubin 0.5 mg/dL (0.3-1.0) 01/18/19 09:00 AST 18 U/L (13-39) 01/18/19 09:00 ALT 15 U/L (7-52) 01/18/19 09:00 Alkaline Phosphatase 91 U/L (34-104) 01/18/19 09:00 B-Natriuretic Peptide 278.0 pg/mL (5.0-100.0) H 01/18/19 04:55 Total Protein 5.4 gm/dL (6.0-8.3) L 01/18/19 09:00 Albumin 3.4 gm/dL (4.2-5.5) L 01/18/19 09:00 Globulin 2.0 gm/dL 01/18/19 09:00 Albumin/Globulin Ratio 1.7 (1.0-1.8) 01/18/19 09:00 Triglycerides 85 mg/dL (<150) 01/17/19 07:30 Cholesterol 104 mg/dL (<200) 01/17/19 07:30 LDL Cholesterol Direct 64 mg/dL (75-193) L 01/17/19 07:30 HDL Cholesterol 23 mg/dL (23-92) 01/17/19 07:30 TSH 1.01 uIU/ml (0.34-5.60) 01/17/19 07:30 - Physical Exam Vitals and I&O: Vital Signs Temp 98.6 F 01/18/19 12:00 Pulse 72 01/18/19 12:00 Resp 18 03/30/19 12:00 BP 115/63 01/18/19 12:00 Pulse Ox 98 01/18/19 12:00 Intake & Output 01/17/19 01/18/19 01/18/19 18:59 06:59 18:59 Intake Total 150 100 Balance 150 100 Weight (lbs) 190 lb 190 lb Intake: Intake, IV Amount 150 KCL 20mEq/100mL Premix 20 100 meq In 100 ml @ 50 mls/ hr IV Q2H [facility] Rx#: [id number] cefTRIAXone 1 gm In 50 Sodium Chloride 0.9% 50 ml @ 100 mls/hr IV DAILY@ 0800 [facility] Rx#:[id number] Oral 100 Other: # Voids 2 2 # Bowel Movements 1 0 Weight Source Bedscale Bedscale Active Medications: Current Medications Acetaminophen (Tylenol) 650 mg PO Q4H PRN PRN Reason: Pain (Moderate) Stop: 03/18/19 01:58 Last Admin: 01/18/19 10:35 Dose: 650 mg Acetaminophen (Tylenol) 650 mg PO Q4HR PRN PRN Reason: Pain or Fever >101 Stop: 03/18/19 06:41 Al Hydrox/Mg Hydrox/Simethicone (Maalox) 30 ml PO Q4HR PRN PRN Reason: GI DISTRESS Stop: 03/18/19 06:41 Albuterol Sulfate (Albuterol 2.5mg/3ml Neb Ud) 2.5 mg HHN Q4HRT PRN PRN Reason: WHEEZING, SOB Stop: 03/18/19 00:48 Albuterol/Ipratropium (Duoneb Neb) 3 ml HHN Q4HRT PRN PRN Reason: Shortness of Breath Stop: 03/18/19 06:41 Amlodipine Besylate (Norvasc) 10 mg PO DAILY [facility] Stop: 03/18/19 08:59 Last Admin: 01/18/19 08:36 Dose: 10 mg Aspirin (Ecotrin) 81 mg PO DAILY [facility] Stop: 03/18/19 08:59 Last Admin: 01/18/19 08:33 Dose: 81 mg Atorvastatin Calcium (Lipitor) 40 mg PO HS [facility] Stop: 03/18/19 20:59 Last Admin: 01/17/19 21:01 Dose: 40 mg Clopidogrel Bisulfate (Plavix) 75 mg PO DAILY [facility] Stop: 03/18/19 08:59 Last Admin: 01/18/19 08:33 Dose: 75 mg Dextrose (D50w) 50 ml IVP PRN PRN PRN Reason: Blood Glucose less than 70 Stop: 03/18/19 00:45 Dextrose (Glutose 40%) 18.75 gm PO PRN PRN PRN Reason: Blood Glucose less than 70 Stop: 03/18/19 00:45 Duloxetine HCl (Cymbalta) 60 mg PO DAILY [facility]; Protocol Stop: 03/18/19 08:59 Furosemide (Lasix) 20 mg PO DAILY [facility] Stop: 03/18/19 08:59 Last Admin: 01/18/19 10:06 Dose: Not Given Glucagon (Glucagen) 1 mg IM PRN PRN PRN Reason: Blood Glucose less than 70 Stop: 03/18/19 00:45 Heparin Sodium (Porcine) (Heparin) 5,000 units SUBQ Q12H [facility] Stop: 03/18/19 20:59 Last Admin: 01/18/19 08:30 Dose: 5,000 units Ceftriaxone Sodium 1 gm/ (Sodium Chloride) 50 mls @ 100 mls/hr IV DAILY@0800 [facility] Stop: 03/18/19 07:59 Last Admin: 01/18/19 08:24 Dose: 100 mls/hr Potassium Chloride 40 meq/Lidocaine HCl 25 mg/ Sodium Chloride 272.5 mls @ 68 mls/hr IV X1 ONE Stop: 01/18/19 16:30 Last Admin: 01/18/19 12:59 Dose: 68 mls/hr Insulin Human Lispro (Humalog Insulin Sliding Scale) 0 units SUBQ ACHS [facility]; Protocol Stop: 03/18/19 07:29 Last Admin: 01/18/19 12:25 Dose: 4 units Lactobacillus Rhamnosus (Culturelle 15b) 1 each PO DAILY [facility] Stop: 03/19/19 08:59 Last Admin: 01/18/19 08:33 Dose: 1 each Miscellaneous (Probiotic Screen) 1 ea PRN PRN PRN Reason: PROTOCOL Stop: 03/18/19 14:17 Miscellaneous (Vte Chemical Prophylaxis Screen/ Admission) 1 ea PRN PRN PRN Reason: PROTOCOL Stop: 03/18/19 16:28 Primidone (Mysoline) 50 mg PO DAILY [facility] Stop: 03/18/19 08:59 Last Admin: 01/18/19 08:33 Dose: 50 mg Risperidone (Risperdal) 0.5 mg PO BID [facility]; Protocol Stop: 03/18/19 08:59 Tamsulosin HCl (Flomax) 0.4 mg PO QPM [facility] Stop: 03/18/19 16:59 Last Admin: 01/17/19 17:05 Dose: 0.4 mg General: weak HEENT: NC/AT, PERRLA Neck: Supple Lungs: CTAB Abdomen: soft, non-tender Internal Medicine Assmt/Plan - Assessment Assessment: Cardiomegaly. Right temporoparietal infarct. History of Hypertension. History of Dyslipidemia. History of Hyperlipidimia. History of Right arm tremor. History of CVA with Increased Left sided weakness. - Plan Plan: Continuation of care. Continue present meds as directed. Cardiology consult. Monitor Labs and Diet. Fall precaution. Physical therapy. Occupational therapy. Continue current treatment plan. Nutritional Asmnt/Malnutr-PDOC - Dietary Evaluation Malnutrition Findings (Please click <Entered> for more info): Nutritional Asmnt/Malnutrition Start: 01/17/19 16: 51 Text: Status: Complete Freq: Protocol: Document 01/17/19 16:51 LCHENG (Rec: 01/17/19 17:17 LCHENG [id number]) Nutritional Asmnt/Malnutrition Patient General Information Nutritional Screening High Risk Consult Diagnosis CVA Pertinent Medical Hx/Surgical Hx HTN, dyslipidemia, tremer Subjective Information Pt seen lying in bed at time of visit, awake, not answering RD greeting. Consult received for BS 297 at admission. Not able to provide diabetic education d/t pt mental status . Pt had swallow eval today d/ t s/p stroke [address] recommended downgrade to pureed thin liquid. 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 Current Diet Order/ Nutrition Support pureed Pertinent Medications lipitor, lasix, heparin, humalog, culturelle Pertinent Labs 01/17 K 2.9, glucose 145, POC 129-174 Nutritional Hx/Data Height 5 ft 8 in Height (Calculated Centimeters) 172.7 Current Weight (lbs) 190 lb Weight (Calculated Kilograms) 86.2 Weight (Calculated Grams) 72978.6 [place] Body Weight 154 Body Mass Index (BMI) 28.8 Weight Status Overweight GI Symptoms GI Symptoms None Last BM none Difficult in: None Skin Integrity/Comment: intact DISCOLORATION to sacrum and both abdomen reddend to groin, bruise to R/ L upper hand alonso 13 Current %PO Good (75-100%) Estimated Nutritional Goals BEE in Kcals: Using Current wt Calories/Kcals/Kg 20-25 Kcals Calculated 4091-8413 Protein: Using Current wt Protein g/k Protein Calculated 86 Fluid: ml 1720-2150ml (1ml/kcal) Nutritional Problem 1. Problem Problem altered nutrition related labs Etiology hyperglycemia Signs/Symptoms: glucose 145, POC 129-174 Malnutrition Alert Is there a minimum of two criteria No selected? Query Text:Check all the applicable criteria. A minimum of two criteria are recommended for diagnosis of either severe or non-severe malnutrition. Malnutrition Related to Morbid Obesity Malnutrition related to morbid obesity No Intervention/Recommendation Comments 1. Continue with pureedt diet as ordered. Recommend adding CCHO diet for optimal glycemic control. RN notified. 2. Monitor PO intake, wt, labs and skin integrity 3. F/U as moderate risk in 3-5 days Expected Outcomes/Goals Expected Outcomes/Goals 1. PO intake to meet at least 75% of nutritional needs. 2. Wt stability, skin to remain intact, labs to approach WNL.
[2019-01-18 20:53] LABS: URINE BILIRUBIN NEGATIVE (NEGATIVE); URINE BLOOD NEGATIVE (NEGATIVE); URINE GLUCOSE (UA) NEGATIVE (NEGATIVE); URINE KETONE NEGATIVE (NEGATIVE); URINE LEUKOCYTE ESTERASE NEGATIVE (NEGATIVE); URINE NITRATE NEGATIVE (NEGATIVE); URINE PROTEIN NEGATIVE (NEGATIVE); URINE SOURCE RANDOM; URINE UROBILINOGEN 0.2 E.U./dL (0.2 - 1.0)
[2019-01-18 20:56] LABS: URINE CLARITY CLEAR (CLEAR); URINE COLOR YELLOW; URINE MICROSCOPIC INDICATED? YES
[2019-01-18 21:06] LABS: URINE AMORPHOUS SEDIMENT FEW URATES (NONE SEEN); URINE BACTERIA FEW /hpf (NONE SEEN); URINE EPITHELIAL CELLS FEW /lpf (FEW); URINE RBC 0-2 /hpf (0-5)
[2019-01-19] MEDS: Peg-400/Propylene Ophth Soln 5 mL Bottle EACH EYE SCH ×4 (05:43→21:27)
[2019-01-19 06:40] LABS: ALB/GLOB RATIO 1.4 (1.0-1.8); ALBUMIN 3.5 gm/dL (4.2-5.5); ALKALINE PHOSPHATASE 87 U/L (34-104); ANION GAP 17.3 (7.0-16.0); BILIRUBIN,TOTAL 0.7 mg/dL (0.3-1.0); BUN - UREA NITROGEN 19 mg/dL (7-25); CALCIUM SERUM 6.7 mg/dL (8.6-10.3); CHLORIDE 104 mEq/L (98-107); CREATININE - SERUM 1.1 mg/dL (0.7-1.3); GLUCOSE 253 mg/dL (70-105); POTASSIUM SERUM 3.3 mEq/L (3.5-5.1); SGOT 17 U/L (13-39); SGPT/ALT 15 U/L (7-52); SODIUM SERUM 138 mEq/L (136-145)
[2019-01-19] MEDS: INSULIN LISPRO SLIDING SCALE 100 UNITS/ML UNIT SUBQ SCH ×4 (06:47→21:31)
[2019-01-19 06:48] LABS: % EOSINOPHILS 1.8 % (0.0-5.0); % LYMPHOCYTES 11.7 % (20.0-50.0); % MONOCYTES 14.8 % (2.0-10.0); % NEUTROPHILS 70.7 % (40.0-80.0); BASOPHILE ABSOLUTE 0.1 Th/cumm (0-0.2); EOSINOPHILE ABSOLUTE 0.2 Th/cmm (0.1-0.4); HEMATOCRIT 40.1 % (41.0-60); HEMOGLOBIN 13.1 gm/dL (12-16); LYMPHOCYTE ABSOLUTE 1.3 Th/cmm (1.5-3.0); MEAN CELL VOLUME 82.6 fl (80-99); MEAN CORPUSCULAR HEMOGLOBIN 26.9 pg (27.0-31.0); MEAN CORPUSCULAR HGB CONC 32.6 pg (28.0-36.0); MONOCYTE ABSOLUTE 1.6 Th/cmm (0.3-1.0); NEUTROPHILE ABSOLUTE 7.5 Th/cmm (1.8-8.0); PLATELET COUNT 231 Th/cmm (150-400); RED BLOOD COUNT 4.85 Mil/cmm (3.80-5.80); RED CELL DISTRIBUTION WIDTH 14.1 % (11.5-20.0); WHITE BLOOD COUNT 10.7 Th/cmm (4.8-10.8)
--- NOTE | 2019-01-19 08:14 | Diagnostic Imaging Report ---
Portable chest x-ray HISTORY: Shortness of breath, pneumonia Compared with prior exam of January 08, 2019, the heart remains enlarged. No focal point processes. IMPRESSION: 1. No focal pulmonary processes 2. Persistent cardiomegaly with pacemaker placement
--- NOTE | 2019-01-19 08:17 | Diagnostic Imaging Report ---
Bilateral carotid Doppler ultrasound exam HISTORY: Stroke, CVA Sonographic sector images were obtained through the carotid bifurcation regions bilaterally. Associated Doppler data was obtained. The exam of the right side demonstrates generalized intimal thickening along with mild diffuse atherosclerotic plaque throughout the bifurcation region. No significant narrowing or stenosis. Antegrade vertebral artery flow. Velocities and flow ratios are normal (ICA/CCA equals 0.88). The left side also demonstrates generalized intimal thickening and mild diffuse atherosclerotic changes. No significant narrowing or stenosis. Antegrade vertebral artery flow. Velocities and flow ratios are normal (ICC/CCA equals 0.68). IMPRESSION: 1. Mild diffuse bilateral atherosclerotic changes that do not appear to be hemodynamically significant.
[2019-01-19] MEDS: Lactobacillus Rhamnosus GG 15 Billion CFU CAP.SPRINK PO SCH (08:21)
[2019-01-19] MEDS: Potassium Chloride Elixir 20 mEq /15 mL UDC GT SCH (11:21)
--- NOTE | 2019-01-19 12:17 | Internal Medicine Prog Note ---
Internal Medicine Subjective - Subjective Patient seen and examined:: chart reviewed Patient is:: awake, talking, other (not compliant with care) Per staff patient has:: tolerating meds, refusing care, refusing labs Internal Medicine Objective - Results Result Diagrams: 01/19/19 06:15 01/19/19 06:15 Recent Labs: Laboratory Last Values WBC 10.7 Th/cmm (4.8-10.8) 01/19/19 06:15 RBC 4.85 Mil/cmm (3.80-5.80) 01/19/19 06:15 Hgb 13.1 gm/dL (12-16) 01/19/19 06:15 Hct 40.1 % (41.0-60) L 01/19/19 06:15 MCV 82.6 fl (80-99) 01/19/19 06:15 MCH 26.9 pg (27.0-31.0) L 01/19/19 06:15 MCHC Differential 32.6 pg (28.0-36.0) 01/19/19 06:15 RDW 14.1 % (11.5-20.0) 01/19/19 06:15 Plt Count 231 Th/cmm (150-400) 01/19/19 06:15 MPV 9.0 fl 01/19/19 06:15 Neutrophils % 70.7 % (40.0-80.0) 01/19/19 06:15 Lymphocytes % 11.7 % (20.0-50.0) L 01/19/19 06:15 Monocytes % 14.8 % (2.0-10.0) H 01/19/19 06:15 Eosinophils % 1.8 % (0.0-5.0) 01/19/19 06:15 Basophils % 1.0 % (0.0-2.0) 01/19/19 06:15 Sodium 138 mEq/L (136-145) 01/19/19 06:15 Potassium 3.3 mEq/L (3.5-5.1) L 01/19/19 06:15 Chloride 104 mEq/L (98-107) 01/19/19 06:15 Carbon Dioxide 20.0 mEq/L (21.0-31.0) L 01/19/19 06:15 Anion Gap 17.3 (7.0-16.0) H 01/19/19 06:15 BUN 19 mg/dL (7-25) 01/19/19 06:15 Creatinine 1.1 mg/dL (0.7-1.3) 01/19/19 06:15 Est GFR ( Amer) TNP 01/19/19 06:15 Est GFR (Non-Af Amer) TNP 01/19/19 06:15 BUN/Creatinine Ratio 17.3 01/19/19 06:15 Glucose 253 mg/dL (70-105) H 01/19/19 06:15 POC Glucose 271 MG/DL (70 - 105) H 01/19/19 11:15 Calcium 6.7 mg/dL (8.6-10.3) L 01/19/19 06:15 Total Bilirubin 0.7 mg/dL (0.3-1.0) 01/19/19 06:15 AST 17 U/L (13-39) 01/19/19 06:15 ALT 15 U/L (7-52) 01/19/19 06:15 Alkaline Phosphatase 87 U/L (34-104) 01/19/19 06:15 B-Natriuretic Peptide 278.0 pg/mL (5.0-100.0) H 01/18/19 04:55 Total Protein 6.0 gm/dL (6.0-8.3) 01/19/19 06:15 Albumin 3.5 gm/dL (4.2-5.5) L 01/19/19 06:15 Globulin 2.5 gm/dL 01/19/19 06:15 Albumin/Globulin Ratio 1.4 (1.0-1.8) 01/19/19 06:15 Triglycerides 85 mg/dL (<150) 01/17/19 07:30 Cholesterol 104 mg/dL (<200) 01/17/19 07:30 LDL Cholesterol Direct 64 mg/dL (75-193) L 01/17/19 07:30 HDL Cholesterol 23 mg/dL (23-92) 01/17/19 07:30 TSH 1.01 uIU/ml (0.34-5.60) 01/17/19 07:30 Urine Source RANDOM 01/18/19 20:43 Urine Color YELLOW 01/18/19 20:43 Urine Clarity CLEAR (CLEAR) 01/18/19 20:43 Urine pH 6.0 (4.6 - 8.0) 01/18/19 20:43 Ur Specific [place] 1.010 (1.005-1.030) 01/18/19 20:43 Urine Protein NEGATIVE mg/dL (NEGATIVE) 01/18/19 20:43 Urine Glucose (UA) NEGATIVE mg/dL (NEGATIVE) 01/18/19 20:43 Urine Ketones NEGATIVE mg/dL (NEGATIVE) 01/18/19 20:43 Urine Blood NEGATIVE (NEGATIVE) 01/18/19 20:43 Urine Nitrate NEGATIVE (NEGATIVE) 01/18/19 20:43 Urine Bilirubin NEGATIVE (NEGATIVE) 01/18/19 20:43 Urine Urobilinogen 0.2 E.U./dL (0.2 - 1.0) 01/18/19 20:43 Ur Leukocyte Esterase NEGATIVE (NEGATIVE) 01/18/19 20:43 Urine RBC 0-2 /hpf (0-5) H 01/18/19 20:43 Urine WBC 2-5 /hpf (0-5) 01/18/19 20:43 Ur Epithelial Cells FEW /lpf (FEW) 01/18/19 20:43 Amorphous Sediment FEW URATES (NONE SEEN) 01/18/19 20:43 Urine Bacteria FEW /hpf (NONE SEEN) 01/18/19 20:43 Urine Mucus FEW /lpf (FEW) 01/18/19 20:43 - Physical Exam Vitals and I&O: Vital Signs Temp 99.2 F 01/19/19 12:00 Pulse 95 01/19/19 12:00 Resp 20 01/19/19 12:00 BP 134/65 01/19/19 12:00 Pulse Ox 99 01/19/19 12:00 Intake & Output 01/18/19 01/19/19 01/19/19 18:59 06:59 18:59 Intake Total 620 340 Output Total 500 Balance 620 -160 Weight (lbs) 86.183 kg 92.986 kg Intake: Oral 620 340 Output: Urine 500 Other: # Voids 3 1 # Bowel Movements 2 2 Stool Characteristics Soft Formed Weight Source Bedscale Bedscale Active Medications: Current Medications Acetaminophen (Tylenol) 650 mg PO Q4H PRN PRN Reason: Pain (Moderate) Stop: 03/18/19 01:58 Last Admin: 01/19/19 08:22 Dose: 650 mg Acetaminophen (Tylenol) 650 mg PO Q4HR PRN PRN Reason: Pain or Fever >101 Stop: 03/18/19 06:41 Last Admin: 01/18/19 20:30 Dose: 650 mg Al Hydrox/Mg Hydrox/Simethicone (Maalox) 30 ml PO Q4HR PRN PRN Reason: GI DISTRESS Stop: 03/18/19 06:41 Albuterol Sulfate (Albuterol 2.5mg/3ml Neb Ud) 2.5 mg HHN Q4HRT PRN PRN Reason: WHEEZING, SOB Stop: 03/18/19 00:48 Albuterol/Ipratropium (Duoneb Neb) 3 ml HHN Q4HRT PRN PRN Reason: Shortness of Breath Stop: 03/18/19 06:41 Amlodipine Besylate (Norvasc) 10 mg PO DAILY [facility] Stop: 03/18/19 08:59 Last Admin: 01/19/19 08:22 Dose: 10 mg Aspirin (Ecotrin) 81 mg PO DAILY [facility] Stop: 03/18/19 08:59 Last Admin: 01/19/19 08:23 Dose: 81 mg Atorvastatin Calcium (Lipitor) 40 mg PO HS [facility] Stop: 03/18/19 20:59 Last Admin: 01/18/19 20:29 Dose: 40 mg Ciprofloxacin (Cipro) 250 mg PO BID [facility] Stop: 01/22/19 08:59 Last Admin: 01/19/19 08:22 Dose: 250 mg Clopidogrel Bisulfate (Plavix) 75 mg PO DAILY [facility] Stop: 03/18/19 08:59 Last Admin: 01/19/19 08:22 Dose: 75 mg Dextrose (D50w) 50 ml IVP PRN PRN PRN Reason: Blood Glucose less than 70 Stop: 03/18/19 00:45 Dextrose (Glutose 40%) 18.75 gm PO PRN PRN PRN Reason: Blood Glucose less than 70 Stop: 03/18/19 00:45 Duloxetine HCl (Cymbalta) 60 mg PO DAILY [facility]; Protocol Stop: 03/19/19 16:59 Last Admin: 01/19/19 08:21 Dose: 60 mg Furosemide (Lasix) 20 mg PO DAILY [facility] Stop: 03/18/19 08:59 Last Admin: 01/19/19 08:23 Dose: 20 mg Glucagon (Glucagen) 1 mg IM PRN PRN PRN Reason: Blood Glucose less than 70 Stop: 03/18/19 00:45 Heparin Sodium (Porcine) (Heparin) 5,000 units SUBQ Q12H [facility] Stop: 03/18/19 20:59 Last Admin: 01/19/19 08:28 Dose: 5,000 units Insulin Human Lispro (Humalog Insulin Sliding Scale) 0 units SUBQ ACHS [facility]; Protocol Stop: 03/18/19 07:29 Last Admin: 01/19/19 11:20 Dose: 6 units Lactobacillus Rhamnosus (Culturelle 15b) 1 each PO DAILY [facility] Stop: 03/19/19 08:59 Last Admin: 01/19/19 08:21 Dose: 1 each Miscellaneous (Probiotic Screen) 1 ea PRN PRN PRN Reason: PROTOCOL Stop: 03/18/19 14:17 Miscellaneous (Vte Chemical Prophylaxis Screen/ Admission) 1 [facility] PRN PRN PRN Reason: PROTOCOL Stop: 03/18/19 16:28 Potassium Chloride (Potassium Chloride Elixir) 20 meq GT DAILY [facility] Stop: 03/20/19 10:29 Last Admin: 01/19/19 11:21 Dose: 20 meq Primidone (Mysoline) 50 mg PO DAILY [facility] Stop: 03/18/19 08:59 Last Admin: 01/19/19 08:21 Dose: 50 mg Propylene Glycol (Systane Ophth Soln) 1 drop EACH EYE TID [facility] Stop: 03/19/19 20:59 Last Admin: 01/19/19 09:43 Dose: 1 drop Risperidone (Risperdal) 0.5 mg PO BID [facility]; Protocol Stop: 03/19/19 16:59 Last Admin: 01/19/19 08:21 Dose: 0.5 mg Tamsulosin HCl (Flomax) 0.4 mg PO QPM [facility] Stop: 03/18/19 16:59 Last Admin: 01/18/19 16:29 Dose: 0.4 mg General: weak HEENT: NC/AT, PERRLA Neck: Supple Lungs: CTAB Abdomen: soft, non-tender Internal Medicine Assmt/Plan - Assessment Assessment: Cardiomegaly. Right temporoparietal infarct. History of Hypertension. History of Dyslipidemia. History of Hyperlipidimia. History of Right arm tremor. History of CVA with Increased Left sided weakness. - Plan Plan: Continuation of care. Continue present meds as directed. Cardiology consult. Monitor Labs and Diet. Fall precaution. Physical therapy. Occupational therapy. Continue current treatment plan. Nutritional Asmnt/Malnutr-PDOC - Dietary Evaluation Malnutrition Findings (Please click <Entered> for more info): Nutritional Asmnt/Malnutrition Start: 01/17/19 16: 51 Text: Status: Complete Freq: Protocol: Document 01/17/19 16:51 [facility] (Rec: 01/17/19 17:17 [facility] Nutritional Asmnt/Malnutrition Patient General Information Nutritional Screening High Risk Consult Diagnosis CVA Pertinent Medical Hx/Surgical Hx HTN, dyslipidemia, tremer Subjective Information Pt seen lying in bed at time of visit, awake, not answering RD greeting. Consult received for BS 297 at admission. Not able to provide diabetic education d/t pt mental status . Pt had swallow eval today d/ t s/p stroke [address] recommended downgrade to pureed thin liquid. Per [employer] pt ate 100% of breakfast this morning. Current Diet Order/ Nutrition Support pureed Pertinent Medications lipitor, lasix, heparin, humalog, culturelle Pertinent Labs 01/17 K 2.9, glucose 145, POC 129-174 Nutritional Hx/Data Height 1.73 m Height (Calculated Centimeters) 172.7 Current Weight (lbs) 86.183 kg Weight (Calculated Kilograms) 86.2 Weight (Calculated Grams) 41034.6 [place] Body Weight 154 Body Mass Index (BMI) 28.8 Weight Status Overweight GI Symptoms GI Symptoms None Last BM none Difficult in: None Skin Integrity/Comment: intact DISCOLORATION to sacrum and both abdomen reddend to groin, bruise to R/ L upper hand alonso 13 Current %PO Good (75-100%) Estimated Nutritional Goals BEE in Kcals: Using Current wt Calories/Kcals/Kg 20-25 Kcals Calculated 4653-3992 Protein: Using Current wt Protein g/k Protein Calculated 86 Fluid: ml 1720-2150ml (1ml/kcal) Nutritional Problem 1. Problem Problem altered nutrition related labs Etiology hyperglycemia Signs/Symptoms: glucose 145, POC 129-174 Malnutrition Alert Is there a minimum of two criteria No selected? Query Text:Check all the applicable criteria. A minimum of two criteria are recommended for diagnosis of either severe or non-severe malnutrition. Malnutrition Related to Morbid Obesity Malnutrition related to morbid obesity No Intervention/Recommendation Comments 1. Continue with pureedt diet as ordered. Recommend adding CCHO diet for optimal glycemic control. RN notified. 2. Monitor PO intake, wt, labs and skin integrity 3. F/U as moderate risk in 3-5 days Expected Outcomes/Goals Expected Outcomes/Goals 1. PO intake to meet at least 75% of nutritional needs. 2. Wt stability, skin to remain intact, labs to approach WNL.
--- NOTE | 2019-01-19 14:24 | General Progress Note ---
Subjective - Review of Systems Service Date: 01/19/19 Subjective: Patient has less shortness of breath minimal swelling in the legs Hypokalemia Objective - Results Result Diagrams: 01/19/19 06:15 01/19/19 06:15 Recent Labs: Laboratory Last Values WBC 10.7 Th/cmm (4.8-10.8) 01/19/19 06:15 RBC 4.85 Mil/cmm (3.80-5.80) 01/19/19 06:15 Hgb 13.1 gm/dL (12-16) 01/19/19 06:15 Hct 40.1 % (41.0-60) L 01/19/19 06:15 MCV 82.6 fl (80-99) 01/19/19 06:15 MCH 26.9 pg (27.0-31.0) L 01/19/19 06:15 MCHC Differential 32.6 pg (28.0-36.0) 01/19/19 06:15 RDW 14.1 % (11.5-20.0) 01/19/19 06:15 Plt Count 231 Th/cmm (150-400) 01/19/19 06:15 MPV 9.0 fl 01/19/19 06:15 Neutrophils % 70.7 % (40.0-80.0) 01/19/19 06:15 Lymphocytes % 11.7 % (20.0-50.0) L 01/19/19 06:15 Monocytes % 14.8 % (2.0-10.0) H 01/19/19 06:15 Eosinophils % 1.8 % (0.0-5.0) 01/19/19 06:15 Basophils % 1.0 % (0.0-2.0) 01/19/19 06:15 Sodium 138 mEq/L (136-145) 01/19/19 06:15 Potassium 3.3 mEq/L (3.5-5.1) L 01/19/19 06:15 Chloride 104 mEq/L (98-107) 01/19/19 06:15 Carbon Dioxide 20.0 mEq/L (21.0-31.0) L 01/19/19 06:15 Anion Gap 17.3 (7.0-16.0) H 01/19/19 06:15 BUN 19 mg/dL (7-25) 01/19/19 06:15 Creatinine 1.1 mg/dL (0.7-1.3) 01/19/19 06:15 Est GFR ( Amer) TNP 01/19/19 06:15 Est GFR (Non-Af Amer) TNP 01/19/19 06:15 BUN/Creatinine Ratio 17.3 01/19/19 06:15 Glucose 253 mg/dL (70-105) H 01/19/19 06:15 POC Glucose 271 MG/DL (70 - 105) H 01/19/19 11:15 Calcium 6.7 mg/dL (8.6-10.3) L 01/19/19 06:15 Total Bilirubin 0.7 mg/dL (0.3-1.0) 01/19/19 06:15 AST 17 U/L (13-39) 01/19/19 06:15 ALT 15 U/L (7-52) 01/19/19 06:15 Alkaline Phosphatase 87 U/L (34-104) 01/19/19 06:15 B-Natriuretic Peptide 278.0 pg/mL (5.0-100.0) H 01/18/19 04:55 Total Protein 6.0 gm/dL (6.0-8.3) 01/19/19 06:15 Albumin 3.5 gm/dL (4.2-5.5) L 01/19/19 06:15 Globulin 2.5 gm/dL 01/19/19 06:15 Albumin/Globulin Ratio 1.4 (1.0-1.8) 01/19/19 06:15 Triglycerides 85 mg/dL (<150) 01/17/19 07:30 Cholesterol 104 mg/dL (<200) 01/17/19 07:30 LDL Cholesterol Direct 64 mg/dL (75-193) L 01/17/19 07:30 HDL Cholesterol 23 mg/dL (23-92) 01/17/19 07:30 TSH 1.01 uIU/ml (0.34-5.60) 01/17/19 07:30 Urine Source RANDOM 01/18/19 20:43 Urine Color YELLOW 01/18/19 20:43 Urine Clarity CLEAR (CLEAR) 01/18/19 20:43 Urine pH 6.0 (4.6 - 8.0) 01/18/19 20:43 Ur Specific [place] 1.010 (1.005-1.030) 01/18/19 20:43 Urine Protein NEGATIVE mg/dL (NEGATIVE) 01/18/19 20:43 Urine Glucose (UA) NEGATIVE mg/dL (NEGATIVE) 01/18/19 20:43 Urine Ketones NEGATIVE mg/dL (NEGATIVE) 01/18/19 20:43 Urine Blood NEGATIVE (NEGATIVE) 01/18/19 20:43 Urine Nitrate NEGATIVE (NEGATIVE) 01/18/19 20:43 Urine Bilirubin NEGATIVE (NEGATIVE) 01/18/19 20:43 Urine Urobilinogen 0.2 E.U./dL (0.2 - 1.0) 01/18/19 20:43 Ur Leukocyte Esterase NEGATIVE (NEGATIVE) 01/18/19 20:43 Urine RBC 0-2 /hpf (0-5) H 01/18/19 20:43 Urine WBC 2-5 /hpf (0-5) 01/18/19 20:43 Ur Epithelial Cells FEW /lpf (FEW) 01/18/19 20:43 Amorphous Sediment FEW URATES (NONE SEEN) 01/18/19 20:43 Urine Bacteria FEW /hpf (NONE SEEN) 01/18/19 20:43 Urine Mucus FEW /lpf (FEW) 01/18/19 20:43 - Physical Exam Vitals and I&O: Vital Signs Temp 99.2 F 01/19/19 12:00 Pulse 95 01/19/19 12:00 Resp 20 01/19/19 12:00 BP 134/65 01/19/19 12:00 Pulse Ox 99 01/19/19 12:00 Intake & Output 01/18/19 01/19/19 01/19/19 18:59 06:59 18:59 Intake Total 620 340 Output Total 500 Balance 620 -160 Weight (lbs) 86.183 kg 92.986 kg Intake: Oral 620 340 Output: Urine 500 Other: # Voids 3 1 # Bowel Movements 2 2 Stool Characteristics Soft Formed Weight Source Bedscale Bedscale Active Medications: Current Medications Acetaminophen (Tylenol) 650 mg PO Q4H PRN PRN Reason: Pain (Moderate) Stop: 03/18/19 01:58 Last Admin: 01/19/19 08:22 Dose: 650 mg Acetaminophen (Tylenol) 650 mg PO Q4HR PRN PRN Reason: Pain or Fever >101 Stop: 03/18/19 06:41 Last Admin: 01/18/19 20:30 Dose: 650 mg Al Hydrox/Mg Hydrox/Simethicone (Maalox) 30 ml PO Q4HR PRN PRN Reason: GI DISTRESS Stop: 03/18/19 06:41 Albuterol Sulfate (Albuterol 2.5mg/3ml Neb Ud) 2.5 mg HHN Q4HRT PRN PRN Reason: WHEEZING, SOB Stop: 03/18/19 00:48 Albuterol/Ipratropium (Duoneb Neb) 3 ml HHN Q4HRT PRN PRN Reason: Shortness of Breath Stop: 03/18/19 06:41 Amlodipine Besylate (Norvasc) 10 mg PO DAILY [facility] Stop: 03/18/19 08:59 Last Admin: 01/19/19 08:22 Dose: 10 mg Aspirin (Ecotrin) 81 mg PO DAILY [facility] Stop: 03/18/19 08:59 Last Admin: 01/19/19 08:23 Dose: 81 mg Atorvastatin Calcium (Lipitor) 40 mg PO HS [facility] Stop: 03/18/19 20:59 Last Admin: 01/18/19 20:29 Dose: 40 mg Ciprofloxacin (Cipro) 250 mg PO BID [facility] Stop: 01/22/19 08:59 Last Admin: 01/19/19 08:22 Dose: 250 mg Clopidogrel Bisulfate (Plavix) 75 mg PO DAILY [facility] Stop: 03/18/19 08:59 Last Admin: 01/19/19 08:22 Dose: 75 mg Dextrose (D50w) 50 ml IVP PRN PRN PRN Reason: Blood Glucose less than 70 Stop: 03/18/19 00:45 Dextrose (Glutose 40%) 18.75 gm PO PRN PRN PRN Reason: Blood Glucose less than 70 Stop: 03/18/19 00:45 Duloxetine HCl (Cymbalta) 60 mg PO DAILY [facility]; Protocol Stop: 03/19/19 16:59 Last Admin: 01/19/19 08:21 Dose: 60 mg Furosemide (Lasix) 20 mg PO DAILY [facility] Stop: 03/18/19 08:59 Last Admin: 01/19/19 08:23 Dose: 20 mg Glucagon (Glucagen) 1 mg IM PRN PRN PRN Reason: Blood Glucose less than 70 Stop: 03/18/19 00:45 Heparin Sodium (Porcine) (Heparin) 5,000 units SUBQ Q12H [facility] Stop: 03/18/19 20:59 Last Admin: 01/19/19 08:28 Dose: 5,000 units Insulin Human Lispro (Humalog Insulin Sliding Scale) 0 units SUBQ ACHS [facility]; Protocol Stop: 03/18/19 07:29 Last Admin: 01/19/19 11:20 Dose: 6 units Lactobacillus Rhamnosus (Culturelle 15b) 1 each PO DAILY [facility] Stop: 03/19/19 08:59 Last Admin: 01/19/19 08:21 Dose: 1 each Miscellaneous (Probiotic Screen) 1 ea PRN PRN PRN Reason: PROTOCOL Stop: 03/18/19 14:17 Miscellaneous (Vte Chemical Prophylaxis Screen/ Admission) 1 [facility] PRN PRN PRN Reason: PROTOCOL Stop: 03/18/19 16:28 Potassium Chloride (Potassium Chloride Elixir) 20 meq GT DAILY [facility] Stop: 03/20/19 10:29 Last Admin: 01/19/19 11:21 Dose: 20 meq Primidone (Mysoline) 50 mg PO DAILY [facility] Stop: 03/18/19 08:59 Last Admin: 01/19/19 08:21 Dose: 50 mg Propylene Glycol (Systane Ophth Soln) 1 drop EACH EYE TID [facility] Stop: 03/19/19 20:59 Last Admin: 01/19/19 13:04 Dose: 1 drop Risperidone (Risperdal) 0.5 mg PO BID [facility]; Protocol Stop: 03/19/19 16:59 Last Admin: 01/19/19 08:21 Dose: 0.5 mg Tamsulosin HCl (Flomax) 0.4 mg PO QPM [facility] Stop: 03/18/19 16:59 Last Admin: 01/18/19 16:29 Dose: 0.4 mg General: No acute distress HEENT: Mucous membr. 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 (Rec: 01/17/19 17:17 [facility]-FN) Nutritional Asmnt/Malnutrition Patient General Information Nutritional Screening High Risk Consult Diagnosis CVA Pertinent Medical Hx/Surgical Hx HTN, dyslipidemia, tremer Subjective Information Pt seen lying in bed at time of visit, awake, not answering RD greeting. Consult received for BS 297 at admission. Not able to provide diabetic education d/t pt mental status . Pt had swallow eval today d/ t s/p stroke [address] recommended downgrade to pureed thin liquid. Per [employer] DIRECT[employer] pt ate 100% of breakfast this morning. Current Diet Order/ Nutrition Support pureed Pertinent Medications lipitor, lasix, heparin, humalog, culturelle Pertinent Labs 01/17 K 2.9, glucose 145, POC 129-174 Nutritional Hx/Data Height 1.73 m Height (Calculated Centimeters) 172.7 Current Weight (lbs) 86.183 kg Weight (Calculated Kilograms) 86.2 Weight (Calculated Grams) 54458.6 [place] Body Weight 154 Body Mass Index (BMI) 28.8 Weight Status Overweight GI Symptoms GI Symptoms None Last BM none Difficult in: None Skin Integrity/Comment: intact DISCOLORATION to sacrum and both abdomen reddend to groin, bruise to R/ L upper hand alonso 13 Current %PO Good (75-100%) Estimated Nutritional Goals BEE in Kcals: Using Current wt Calories/Kcals/Kg 20-25 Kcals Calculated 6250-7432 Protein: Using Current wt Protein g/k Protein Calculated 86 Fluid: ml 1720-2150ml (1ml/kcal) Nutritional Problem 1. Problem Problem altered nutrition related labs Etiology hyperglycemia Signs/Symptoms: glucose 145, POC 129-174 Malnutrition Alert Is there a minimum of two criteria No selected? Query Text:Check all the applicable criteria. A minimum of two criteria are recommended for diagnosis of either severe or non-severe malnutrition. Malnutrition Related to Morbid Obesity Malnutrition related to morbid obesity No Intervention/Recommendation Comments 1. Continue with pureedt diet as ordered. Recommend adding CCHO diet for optimal glycemic control. RN notified. 2. Monitor PO intake, wt, labs and skin integrity 3. F/U as moderate risk in 3-5 days Expected Outcomes/Goals Expected Outcomes/Goals 1. PO intake to meet at least 75% of nutritional needs. 2. Wt stability, skin to remain intact, labs to approach WNL.
--- NOTE | 2019-01-19 14:45 | Consultation ---
DATE OF CONSULTATION: 01/18/2019 REFERRING PHYSICIAN: Dr. Evans. REASON FOR CONSULTATION: Urinary tract infection. HISTORY OF PRESENT ILLNESS: The patient is a 83-year-old gentleman with a past medical history of left-sided weakness, COPD, diabetes mellitus type 2, seizure disorder, history of asthma, history of pacemaker placement, dementia, hypertension, hyperlipidemia, alcohol abuse in the past, admitted for increasing weakness to the ER. He is somewhat confused, most of the days, a component of dementia. Currently, no seizures, no headache. On initial evaluation, the patient's temperature was 98.1 degrees Fahrenheit, and it went up to 100.4 degrees Fahrenheit. WBC count is 11,000. Urinalysis shows bacteriuria. The patient was started on Rocephin and ID consult was called for the antibiotic management. PAST MEDICAL HISTORY: As mentioned, COPD, CVA with left-sided weakness, dementia, hypertension, hyperlipidemia, right hand tremor, diabetes mellitus type 2, history of seizures, history of arrhythmia, cardiac pacemaker placement, hypertension, hyperlipidemia, alcohol abuse in the past. MEDICATIONS: Per medication reconciliation sheet. Antibiotic dasilva, the patient is on Rocephin. REVIEW OF SYSTEMS: The patient is a poor historian. GENERAL: The patient has no fever, no chills. As the patient had a low-grade fever just now. HEAD, EYES, EARS, NOSE, AND THROAT: Head is normocephalic, atraumatic. Oral cavity moist, pink tongue. Eyes: No pallor. PERRLA, EOMI. NECK: Supple, no JVD, no carotid bruit. Trachea in midline. CHEST: Bilateral breath sounds. No crackles or wheezing. HEART: S1, S2 within normal limits. Regular rhythm. No murmur, no gallop. ABDOMEN: Soft, nontender, nondistended. Bowel sounds present. EXTREMITIES: No cyanosis, no clubbing, no edema. The patient has some mild flexion contracture of the wrist. CENTRAL NERVOUS SYSTEM: Alert, awake, oriented x 3, slow to respond, left-sided paralysis. SKIN: Intact. PHYSICAL EXAMINATION: VITAL SIGNS: Show temperature 100.4 degrees Fahrenheit, pulse 58, respirations 20, blood pressure 128/44. GENERAL: The patient is comfortable, lying in the bed, not in acute distress. HEAD, EYES, EARS, NOSE, AND THROAT: Head is normocephalic, atraumatic. Oral cavity moist, pink tongue. NECK: Supple. No JVD, no bruit. Trachea in midline. LUNGS: midline. CHEST: Bilateral breath sounds. No crackles or wheezing. CARDIOVASCULAR: S1, S2 within normal limits. Regular rhythm. No murmur, no gallop. ABDOMEN: Soft, nontender, nondistended. Bowel sounds present. EXTREMITIES: No cyanosis, no clubbing, no edema. NEUROLOGICAL: Alert, awake, and oriented x 3. The patient has weakness of the left side. EXTREMITIES: No cyanosis, no clubbing, no edema. NEUROLOGIC: Alert, awake, oriented x 3, slow to respond left-sided weakness. SKIN: The patient has no rash, no hives. LABORATORY DATA: Current lab shows WBC count is by WBC count is 9500, hemoglobin 13.1, hematocrit 40.4, platelets are 203,000, neutrophils 71.3%, creatinine 1.1. Urinalysis negative nitrite negative, leukoesterase negative, rbc's 0-2, wbc's 2-5 and few bacteria. IMPRESSION: 1. Leukocytosis, improved. 2. Fever, new. 3. Urinary tract infection. 4. Cerebrovascular accident. 5. Chronic obstructive pulmonary disease. 6. Hypertension. 7. Arrhythmias. 8. Pacemaker placement. 9. Chronic obstructive pulmonary disease. 10. Diabetes mellitus type 2. 11. Dementia. RECOMMENDATIONS: We will check the blood cultures. Change antibiotic to Cipro p.o. for 3 more days. If blood culture comes positive, then we will decide further therapy. Chest x-ray also. Dr. Evans for involving me in taking care of this patient. Thank you Dr. Evans for involving me in taking care of this patient. JOB# [id number]
--- NOTE | 2019-01-19 20:15 | Cardiology ---
01/18/[address] Evans. M-MODE ECHOCARDIOGRAM: Mitral valve, anterior leaflet of mitral valve shows normal excursion, EF velocity. Posterior leaflet of the mitral valve shows normal excursion. Left ventricular posterior wall shows increased thickness, normal excursion. Interventricular septum shows increased thickness, normal excursion, hypertrophy of the left ventricle, ejection fraction 61%. Left atrium enlarged 4.4 cm. Aortic root shows normal dimension with mild aortic stenosis. CONCLUSION: Left atrial enlargement, mild aortic stenosis, hypertrophy of the left ventricle, ejection fraction 61%. 2D ECHO: Long axis view showed normal sized left ventricle with hypertrophy of the left ventricle. Left atrium enlarged. Aortic root shows normal dimension, shows decreased excursion of aortic leaflets with mild aortic stenosis. Short axis view of mitral valve normal. Short axis view of aortic valve shows mild aortic stenosis. Apical four chamber view showed normal sized left ventricle with hypertrophy of the left ventricle. Left atrium enlarged. Right ventricular cavity, right atrium normal, no pericardial effusion. CONCLUSION: Hypertrophy of the left ventricle, left atrial enlargement, ejection fraction 61%, mild aortic stenosis. Doppler study shows mild aortic stenosis, aortic valve area 1.1 cm2. Mild aortic regurgitation. Pressure half time 398 milliseconds, moderate mitral regurgitation, mild tricuspid regurgitation, right ventricular systolic pressure 38 mmHg. [facility]# [id number]
[2019-01-20 04:39] LABS: % NEUTROPHILS 68.2 % (40.0-80.0); EOSINOPHILE ABSOLUTE 0.5 Th/cmm (0.1-0.4); LYMPHOCYTE ABSOLUTE 1.2 Th/cmm (1.5-3.0); MONOCYTE ABSOLUTE 1.1 Th/cmm (0.3-1.0); NEUTROPHILE ABSOLUTE 5.8 Th/cmm (1.8-8.0); WHITE BLOOD COUNT 8.6 Th/cmm (4.8-10.8)
[2019-01-20 04:49] LABS: % BASOPHILS 0.1 % (0.0-2.0); % EOSINOPHILS 5.4 % (0.0-5.0); % MONOCYTES 12.3 % (2.0-10.0); HEMATOCRIT 35.7 % (41.0-60); HEMOGLOBIN 11.8 gm/dL (12-16); MEAN CELL VOLUME 82.5 fl (80-99); MEAN CORPUSCULAR HEMOGLOBIN 27.2 pg (27.0-31.0); MEAN PLATELET VOLUME 9.1 fl; RED BLOOD COUNT 4.32 Mil/cmm (3.80-5.80); RED CELL DISTRIBUTION WIDTH 14.6 % (11.5-20.0)
[2019-01-20 04:54] LABS: PLATELET COUNT 157 Th/cmm (150-400)
[2019-01-20 05:10] LABS: ALB/GLOB RATIO 1.4 (1.0-1.8); ALBUMIN 3.1 gm/dL (4.2-5.5); ALKALINE PHOSPHATASE 72 U/L (34-104); ANION GAP 16.8 (7.0-16.0); BILIRUBIN,TOTAL 0.6 mg/dL (0.3-1.0); BUN - UREA NITROGEN 19 mg/dL (7-25); CALCIUM SERUM 6.5 mg/dL (8.6-10.3); CARBON DIOXIDE 19.7 mEq/L (21.0-31.0); CHLORIDE 109 mEq/L (98-107); CREATININE - SERUM 1.1 mg/dL (0.7-1.3); GLUCOSE 228 mg/dL (70-105); POTASSIUM SERUM 3.5 mEq/L (3.5-5.1); SGOT 16 U/L (13-39); SGPT/ALT 14 U/L (7-52); SODIUM SERUM 142 mEq/L (136-145); TOTAL PROTEIN,SERUM 5.4 gm/dL (6.0-8.3)
[2019-01-20] MEDS: INSULIN LISPRO SLIDING SCALE 100 UNITS/ML UNIT SUBQ SCH ×3 (06:48→17:32)
[2019-01-20] MEDS: Lactobacillus Rhamnosus GG 15 Billion CFU CAP.SPRINK PO SCH (09:25)
[2019-01-20] MEDS: Potassium Chloride Elixir 20 mEq /15 mL UDC GT SCH (09:25)
[2019-01-20] MEDS: Peg-400/Propylene Ophth Soln 5 mL Bottle EACH EYE SCH ×2 (09:26→15:00)
--- NOTE | 2019-01-20 10:12 | Internal Medicine Prog Note ---
Internal Medicine Subjective - Subjective Patient is:: awake, verbal, talking, other (alert and cooperative today with care ) Per staff patient has:: tolerating meds Internal Medicine Objective - Results Result Diagrams: 01/20/19 04:15 01/20/19 04:15 Recent Labs: Laboratory Last Values WBC 8.6 Th/cmm (4.8-10.8) 01/20/19 04:15 RBC 4.32 Mil/cmm (3.80-5.80) 01/20/19 04:15 Hgb 11.8 gm/dL (12-16) L 01/20/19 04:15 Hct 35.7 % (41.0-60) L 01/20/19 04:15 MCV 82.5 fl (80-99) 01/20/19 04:15 MCH 27.2 pg (27.0-31.0) 01/20/19 04:15 MCHC Differential 33.0 pg (28.0-36.0) 01/20/19 04:15 RDW 14.6 % (11.5-20.0) 01/20/19 04:15 Plt Count 157 Th/cmm (150-400) D 01/20/19 04:15 MPV 9.1 fl 01/20/19 04:15 Neutrophils % 68.2 % (40.0-80.0) 01/20/19 04:15 Lymphocytes % 14.0 % (20.0-50.0) L 01/20/19 04:15 Monocytes % 12.3 % (2.0-10.0) H 01/20/19 04:15 Eosinophils % 5.4 % (0.0-5.0) H 01/20/19 04:15 Basophils % 0.1 % (0.0-2.0) 01/20/19 04:15 Sodium 142 mEq/L (136-145) 01/20/19 04:15 Potassium 3.5 mEq/L (3.5-5.1) 01/20/19 04:15 Chloride 109 mEq/L (98-107) H 01/20/19 04:15 Carbon Dioxide 19.7 mEq/L (21.0-31.0) L 01/20/19 04:15 Anion Gap 16.8 (7.0-16.0) H 01/20/19 04:15 BUN 19 mg/dL (7-25) 01/20/19 04:15 Creatinine 1.1 mg/dL (0.7-1.3) 01/20/19 04:15 Est GFR ( Amer) TNP 01/20/19 04:15 Est GFR (Non-Af Amer) TNP 01/20/19 04:15 BUN/Creatinine Ratio 17.3 01/20/19 04:15 Glucose 228 mg/dL (70-105) H 01/20/19 04:15 POC Glucose 229 MG/DL (70 - 105) H 01/20/19 05:56 Calcium 6.5 mg/dL (8.6-10.3) L 01/20/19 04:15 Total Bilirubin 0.6 mg/dL (0.3-1.0) 01/20/19 04:15 AST 16 U/L (13-39) 01/20/19 04:15 ALT 14 U/L (7-52) 01/20/19 04:15 Alkaline Phosphatase 72 U/L (34-104) 01/20/19 04:15 B-Natriuretic Peptide 278.0 pg/mL (5.0-100.0) H 01/18/19 04:55 Total Protein 5.4 gm/dL (6.0-8.3) L 01/20/19 04:15 Albumin 3.1 gm/dL (4.2-5.5) L 01/20/19 04:15 Globulin 2.3 gm/dL 01/20/19 04:15 Albumin/Globulin Ratio 1.4 (1.0-1.8) 01/20/19 04:15 Triglycerides 85 mg/dL (<150) 01/17/19 07:30 Cholesterol 104 mg/dL (<200) 01/17/19 07:30 LDL Cholesterol Direct 64 mg/dL (75-193) L 01/17/19 07:30 HDL Cholesterol 23 mg/dL (23-92) 01/17/19 07:30 TSH 1.01 uIU/ml (0.34-5.60) 01/17/19 07:30 Urine Source RANDOM 01/18/19 20:43 Urine Color YELLOW 01/18/19 20:43 Urine Clarity CLEAR (CLEAR) 01/18/19 20:43 Urine pH 6.0 (4.6 - 8.0) 01/18/19 20:43 Ur Specific [place] 1.010 (1.005-1.030) 01/18/19 20:43 Urine Protein NEGATIVE mg/dL (NEGATIVE) 01/18/19 20:43 Urine Glucose (UA) NEGATIVE mg/dL (NEGATIVE) 01/18/19 20:43 Urine Ketones NEGATIVE mg/dL (NEGATIVE) 01/18/19 20:43 Urine Blood NEGATIVE (NEGATIVE) 01/18/19 20:43 Urine Nitrate NEGATIVE (NEGATIVE) 01/18/19 20:43 Urine Bilirubin NEGATIVE (NEGATIVE) 01/18/19 20:43 Urine Urobilinogen 0.2 E.U./dL (0.2 - 1.0) 01/18/19 20:43 Ur Leukocyte Esterase NEGATIVE (NEGATIVE) 01/18/19 20:43 Urine RBC 0-2 /hpf (0-5) H 01/18/19 20:43 Urine WBC 2-5 /hpf (0-5) 01/18/19 20:43 Ur Epithelial Cells FEW /lpf (FEW) 01/18/19 20:43 Amorphous Sediment FEW URATES (NONE SEEN) 01/18/19 20:43 Urine Bacteria FEW /hpf (NONE SEEN) 01/18/19 20:43 Urine Mucus FEW /lpf (FEW) 01/18/19 20:43 - Physical Exam Vitals and I&O: Vital Signs Temp 97.1 F 01/20/19 08:00 Pulse 55 01/20/19 09:24 Resp 18 01/20/19 08:00 BP 118/54 01/20/19 09:24 Pulse Ox 100 01/20/19 08:00 Intake & Output 01/19/19 01/20/19 01/20/19 18:59 06:59 18:59 Intake Total 800 340 Balance 800 340 Weight (lbs) 94.347 kg 94.347 kg Intake: Oral 800 340 Other: # Voids 3 4 # Bowel Movements 1 1 Stool Characteristics Soft Soft Brown Weight Source Bedscale Bedscale Active Medications: Current Medications Acetaminophen (Tylenol) 650 mg PO Q4H PRN PRN Reason: Pain (Moderate) Stop: 03/18/19 01:58 Last Admin: 01/19/19 21:27 Dose: 650 mg Acetaminophen (Tylenol) 650 mg PO Q4HR PRN PRN Reason: Pain or Fever >101 Stop: 03/18/19 06:41 Last Admin: 01/18/19 20:30 Dose: 650 mg Al Hydrox/Mg Hydrox/Simethicone (Maalox) 30 ml PO Q4HR PRN PRN Reason: GI DISTRESS Stop: 03/18/19 06:41 Albuterol Sulfate (Albuterol 2.5mg/3ml Neb Ud) 2.5 mg HHN Q4HRT PRN PRN Reason: WHEEZING, SOB Stop: 03/18/19 00:48 Albuterol/Ipratropium (Duoneb Neb) 3 ml HHN Q4HRT PRN PRN Reason: Shortness of Breath Stop: 03/18/19 06:41 Amlodipine Besylate (Norvasc) 10 mg PO DAILY [facility] Stop: 03/18/19 08:59 Last Admin: 01/20/19 09:24 Dose: 10 mg Aspirin (Ecotrin) 81 mg PO DAILY [facility] Stop: 03/18/19 08:59 Last Admin: 01/20/19 09:24 Dose: 81 mg Atorvastatin Calcium (Lipitor) 40 mg PO HS [facility] Stop: 03/18/19 20:59 Last Admin: 01/19/19 21:27 Dose: 40 mg Ciprofloxacin (Cipro) 250 mg PO BID [facility] Stop: 01/22/19 08:59 Last Admin: 01/20/19 09:21 Dose: 250 mg Clopidogrel Bisulfate (Plavix) 75 mg PO DAILY [facility] Stop: 03/18/19 08:59 Last Admin: 01/20/19 09:21 Dose: 75 mg Dextrose (D50w) 50 ml IVP PRN PRN PRN Reason: Blood Glucose less than 70 Stop: 03/18/19 00:45 Dextrose (Glutose 40%) 18.75 gm PO PRN PRN PRN Reason: Blood Glucose less than 70 Stop: 03/18/19 00:45 Duloxetine HCl (Cymbalta) 60 mg PO DAILY [facility]; Protocol Stop: 03/19/19 16:59 Last Admin: 01/20/19 09:21 Dose: 60 mg Furosemide (Lasix) 20 mg PO DAILY [facility] Stop: 03/18/19 08:59 Last Admin: 01/20/19 09:23 Dose: 20 mg Glucagon (Glucagen) 1 mg IM PRN PRN PRN Reason: Blood Glucose less than 70 Stop: 03/18/19 00:45 Heparin Sodium (Porcine) (Heparin) 5,000 units SUBQ Q12H [facility] Stop: 03/18/19 20:59 Last Admin: 01/20/19 09:25 Dose: 5,000 units Insulin Human Lispro (Humalog Insulin Sliding Scale) 0 units SUBQ ACHS [facility]; Protocol Stop: 03/18/19 07:29 Last Admin: 01/20/19 06:48 Dose: 4 units Lactobacillus Rhamnosus (Culturelle 15b) 1 each PO DAILY [facility] Stop: 03/19/19 08:59 Last Admin: 01/20/19 09:25 Dose: 1 each Miscellaneous (Probiotic Screen) 1 ea PRN PRN PRN Reason: PROTOCOL Stop: 03/18/19 14:17 Miscellaneous (Vte Chemical Prophylaxis Screen/ Admission) [address] [facility] PRN PRN PRN Reason: PROTOCOL Stop: 03/18/19 16:28 Potassium Chloride (Potassium Chloride Elixir) 20 meq GT DAILY [facility] Stop: 03/20/19 10:29 Last Admin: 01/20/19 09:25 Dose: 20 meq Primidone (Mysoline) 50 mg PO DAILY [facility] Stop: 03/18/19 08:59 Last Admin: 01/20/19 09:25 Dose: 50 mg Propylene Glycol (Systane Ophth Soln) 1 drop EACH EYE TID [facility] Stop: 03/19/19 20:59 Last Admin: 01/20/19 09:26 Dose: 1 drop Risperidone (Risperdal) 0.5 mg PO BID [facility]; Protocol Stop: 03/19/19 16:59 Last Admin: 01/20/19 09:24 Dose: 0.5 mg Tamsulosin HCl (Flomax) 0.4 mg PO QPM [facility] Stop: 03/18/19 16:59 Last Admin: 01/19/19 17:21 Dose: 0.4 mg General: weak HEENT: NC/AT, PERRLA Neck: Supple Lungs: CTAB Abdomen: soft, non-tender Internal Medicine Assmt/Plan - Assessment Assessment: Cardiomegaly. Right temporoparietal infarct. History of Hypertension. History of Dyslipidemia. History of Hyperlipidimia. History of Right arm tremor. History of CVA with Increased Left sided weakness. - Plan Plan: Continuation of care. Continue present meds as directed. Cardiology consult. Monitor Labs and Diet. Fall precaution. Physical therapy. Occupational therapy. Continue current treatment plan. Nutritional Asmnt/Malnutr-PDOC - Dietary Evaluation Malnutrition Findings (Please click <Entered> for more info): Nutritional Asmnt/Malnutrition Start: 01/17/19 16: 51 Text: Status: Complete Freq: Protocol: Document 01/17/19 16:51 LCELINAG (Rec: 01/17/19 17:17 LCELINAG [id number]) Nutritional Asmnt/Malnutrition Patient General Information Nutritional Screening High Risk Consult Diagnosis CVA Pertinent Medical Hx/Surgical Hx HTN, dyslipidemia, tremer Subjective Information Pt seen lying in bed at time of visit, awake, not answering RD greeting. Consult received for BS 297 at admission. Not able to provide diabetic education d/t pt mental status . Pt had swallow eval today d/ t s/p stroke [address] recommended downgrade to pureed thin liquid. Per [employer] pt ate 100% of breakfast this morning. Current Diet Order/ Nutrition Support pureed Pertinent Medications lipitor, lasix, heparin, humalog, culturelle Pertinent Labs 01/17 K 2.9, glucose 145, POC 129-174 Nutritional Hx/Data Height 1.73 m Height (Calculated Centimeters) 172.7 Current Weight (lbs) 86.183 kg Weight (Calculated Kilograms) 86.2 Weight (Calculated Grams) 97089.6 [place] Body Weight 154 Body Mass Index (BMI) 28.8 Weight Status Overweight GI Symptoms GI Symptoms None Last BM none Difficult in: None Skin Integrity/Comment: intact DISCOLORATION to sacrum and both abdomen reddend to groin, bruise to R/ L upper hand alonso 13 Current %PO Good (75-100%) Estimated Nutritional Goals BEE in Kcals: Using Current wt Calories/Kcals/Kg 20-25 Kcals Calculated 5316-9760 Protein: Using Current wt Protein g/k Protein Calculated 86 Fluid: ml 1720-2150ml (1ml/kcal) Nutritional Problem 1. Problem Problem altered nutrition related labs Etiology hyperglycemia Signs/Symptoms: glucose 145, POC 129-174 Malnutrition Alert Is there a minimum of two criteria No selected? Query Text:Check all the applicable criteria. A minimum of two criteria are recommended for diagnosis of either severe or non-severe malnutrition. Malnutrition Related to Morbid Obesity Malnutrition related to morbid obesity No Intervention/Recommendation Comments 1. Continue with pureedt diet as ordered. Recommend adding CCHO diet for optimal glycemic control. RN notified. 2. Monitor PO intake, wt, labs and skin integrity 3. F/U as moderate risk in 3-5 days Expected Outcomes/Goals Expected Outcomes/Goals 1. PO intake to meet at least 75% of nutritional needs. 2. Wt stability, skin to remain intact, labs to approach WNL.
--- NOTE | 2019-01-20 12:05 | General Progress Note ---
Subjective - Review of Systems Service Date: 01/20/19 Subjective: Patient has less shortness of breath minimal swelling in the legs Hypokalemia Objective - Results Result Diagrams: 01/20/19 04:15 01/20/19 04:15 Recent Labs: Laboratory Last Values WBC 8.6 Th/cmm (4.8-10.8) 01/20/19 04:15 RBC 4.32 Mil/cmm (3.80-5.80) 01/20/19 04:15 Hgb 11.8 gm/dL (12-16) L 01/20/19 04:15 Hct 35.7 % (41.0-60) L 01/20/19 04:15 MCV 82.5 fl (80-99) 01/20/19 04:15 MCH 27.2 pg (27.0-31.0) 01/20/19 04:15 MCHC Differential 33.0 pg (28.0-36.0) 01/20/19 04:15 RDW 14.6 % (11.5-20.0) 01/20/19 04:15 Plt Count 157 Th/cmm (150-400) D 01/20/19 04:15 MPV 9.1 fl 01/20/19 04:15 Neutrophils % 68.2 % (40.0-80.0) 01/20/19 04:15 Lymphocytes % 14.0 % (20.0-50.0) L 01/20/19 04:15 Monocytes % 12.3 % (2.0-10.0) H 01/20/19 04:15 Eosinophils % 5.4 % (0.0-5.0) H 01/20/19 04:15 Basophils % 0.1 % (0.0-2.0) 01/20/19 04:15 Sodium 142 mEq/L (136-145) 01/20/19 04:15 Potassium 3.5 mEq/L (3.5-5.1) 01/20/19 04:15 Chloride 109 mEq/L (98-107) H 01/20/19 04:15 Carbon Dioxide 19.7 mEq/L (21.0-31.0) L 01/20/19 04:15 Anion Gap 16.8 (7.0-16.0) H 01/20/19 04:15 BUN 19 mg/dL (7-25) 01/20/19 04:15 Creatinine 1.1 mg/dL (0.7-1.3) 01/20/19 04:15 Est GFR ( Amer) TNP 01/20/19 04:15 Est GFR (Non-Af Amer) TNP 01/20/19 04:15 BUN/Creatinine Ratio 17.3 01/20/19 04:15 Glucose 228 mg/dL (70-105) H 01/20/19 04:15 POC Glucose 229 MG/DL (70 - 105) H 01/20/19 05:56 Calcium 6.5 mg/dL (8.6-10.3) L 01/20/19 04:15 Total Bilirubin 0.6 mg/dL (0.3-1.0) 01/20/19 04:15 AST 16 U/L (13-39) 01/20/19 04:15 ALT 14 U/L (7-52) 01/20/19 04:15 Alkaline Phosphatase 72 U/L (34-104) 01/20/19 04:15 B-Natriuretic Peptide 278.0 pg/mL (5.0-100.0) H 01/18/19 04:55 Total Protein 5.4 gm/dL (6.0-8.3) L 01/20/19 04:15 Albumin 3.1 gm/dL (4.2-5.5) L 01/20/19 04:15 Globulin 2.3 gm/dL 01/20/19 04:15 Albumin/Globulin Ratio 1.4 (1.0-1.8) 01/20/19 04:15 Triglycerides 85 mg/dL (<150) 01/17/19 07:30 Cholesterol 104 mg/dL (<200) 01/17/19 07:30 LDL Cholesterol Direct 64 mg/dL (75-193) L 01/17/19 07:30 HDL Cholesterol 23 mg/dL (23-92) 01/17/19 07:30 TSH 1.01 uIU/ml (0.34-5.60) 01/17/19 07:30 Urine Source RANDOM 01/18/19 20:43 Urine Color YELLOW 01/18/19 20:43 Urine Clarity CLEAR (CLEAR) 01/18/19 20:43 Urine pH 6.0 (4.6 - 8.0) 01/18/19 20:43 Ur Specific [place] 1.010 (1.005-1.030) 01/18/19 20:43 Urine Protein NEGATIVE mg/dL (NEGATIVE) 01/18/19 20:43 Urine Glucose (UA) NEGATIVE mg/dL (NEGATIVE) 01/18/19 20:43 Urine Ketones NEGATIVE mg/dL (NEGATIVE) 01/18/19 20:43 Urine Blood NEGATIVE (NEGATIVE) 01/18/19 20:43 Urine Nitrate NEGATIVE (NEGATIVE) 01/18/19 20:43 Urine Bilirubin NEGATIVE (NEGATIVE) 01/18/19 20:43 Urine Urobilinogen 0.2 E.U./dL (0.2 - 1.0) 01/18/19 20:43 Ur Leukocyte Esterase NEGATIVE (NEGATIVE) 01/18/19 20:43 Urine RBC 0-2 /hpf (0-5) H 01/18/19 20:43 Urine WBC 2-5 /hpf (0-5) 01/18/19 20:43 Ur Epithelial Cells FEW /lpf (FEW) 01/18/19 20:43 Amorphous Sediment FEW URATES (NONE SEEN) 01/18/19 20:43 Urine Bacteria FEW /hpf (NONE SEEN) 01/18/19 20:43 Urine Mucus FEW /lpf (FEW) 01/18/19 20:43 - Physical Exam Vitals and I&O: Vital Signs Temp 97.1 F 01/20/19 08:00 Pulse 55 01/20/19 09:24 Resp 20 01/20/19 11:00 BP 118/54 01/20/19 09:24 Pulse Ox 100 01/20/19 08:00 Intake & Output 01/19/19 01/20/19 01/20/19 18:59 06:59 18:59 Intake Total 800 340 300 Balance 800 340 300 Weight (lbs) 94.347 kg 94.347 kg 94.347 kg Intake: Oral 800 340 300 Other: # Voids 3 4 2 # Bowel Movements 1 1 Stool Characteristics Soft Soft Soft Brown Brown Weight Source Bedscale Bedscale Bedscale Active Medications: Current Medications Acetaminophen (Tylenol) 650 mg PO Q4H PRN PRN Reason: Pain (Moderate) Stop: 03/18/19 01:58 Last Admin: 01/19/19 21:27 Dose: 650 mg Acetaminophen (Tylenol) 650 mg PO Q4HR PRN PRN Reason: Pain or Fever >101 Stop: 03/18/19 06:41 Last Admin: 01/18/19 20:30 Dose: 650 mg Al Hydrox/Mg Hydrox/Simethicone (Maalox) 30 ml PO Q4HR PRN PRN Reason: GI DISTRESS Stop: 03/18/19 06:41 Albuterol Sulfate (Albuterol 2.5mg/3ml Neb Ud) 2.5 mg HHN Q4HRT PRN PRN Reason: WHEEZING, SOB Stop: 03/18/19 00:48 Albuterol/Ipratropium (Duoneb Neb) 3 ml HHN Q4HRT PRN PRN Reason: Shortness of Breath Stop: 03/18/19 06:41 Amlodipine Besylate (Norvasc) 10 mg PO DAILY [facility] Stop: 03/18/19 08:59 Last Admin: 01/20/19 09:24 Dose: 10 mg Aspirin (Ecotrin) 81 mg PO DAILY [facility] Stop: 03/18/19 08:59 Last Admin: 01/20/19 09:24 Dose: 81 mg Atorvastatin Calcium (Lipitor) 40 mg PO HS [facility] Stop: 03/18/19 20:59 Last Admin: 01/19/19 21:27 Dose: 40 mg Ciprofloxacin (Cipro) 250 mg PO BID [facility] Stop: 01/22/19 08:59 Last Admin: 01/20/19 09:21 Dose: 250 mg Clopidogrel Bisulfate (Plavix) 75 mg PO DAILY [facility] Stop: 03/18/19 08:59 Last Admin: 01/20/19 09:21 Dose: 75 mg Dextrose (D50w) 50 ml IVP PRN PRN PRN Reason: Blood Glucose less than 70 Stop: 03/18/19 00:45 Dextrose (Glutose 40%) 18.75 gm PO PRN PRN PRN Reason: Blood Glucose less than 70 Stop: 03/18/19 00:45 Duloxetine HCl (Cymbalta) 60 mg PO DAILY [facility]; Protocol Stop: 03/19/19 16:59 Last Admin: 01/20/19 09:21 Dose: 60 mg Furosemide (Lasix) 20 mg PO DAILY [facility] Stop: 03/18/19 08:59 Last Admin: 01/20/19 09:23 Dose: 20 mg Glucagon (Glucagen) 1 mg IM PRN PRN PRN Reason: Blood Glucose less than 70 Stop: 03/18/19 00:45 Heparin Sodium (Porcine) (Heparin) 5,000 units SUBQ Q12H [facility] Stop: 03/18/19 20:59 Last Admin: 01/20/19 09:25 Dose: 5,000 units Insulin Human Lispro (Humalog Insulin Sliding Scale) 0 units SUBQ ACHS [facility]; Protocol Stop: 03/18/19 07:29 Last Admin: 01/20/19 06:48 Dose: 4 units Lactobacillus Rhamnosus (Culturelle 15b) 1 each PO DAILY [facility] Stop: 03/19/19 08:59 Last Admin: 01/20/19 09:25 Dose: 1 each Miscellaneous (Probiotic Screen) 1 ea PRN PRN PRN Reason: PROTOCOL Stop: 03/18/19 14:17 Miscellaneous (Vte Chemical Prophylaxis Screen/ Admission) 1 ea PRN PRN PRN Reason: PROTOCOL Stop: 03/18/19 16:28 Potassium Chloride (Potassium Chloride Elixir) 20 meq GT DAILY [facility] Stop: 03/20/19 10:29 Last Admin: 01/20/19 09:25 Dose: 20 meq Primidone (Mysoline) 50 mg PO DAILY [facility] Stop: 03/18/19 08:59 Last Admin: 01/20/19 09:25 Dose: 50 mg Propylene Glycol (Systane Ophth Soln) 1 drop EACH EYE TID [facility] Stop: 03/19/19 20:59 Last Admin: 01/20/19 09:26 Dose: 1 drop Risperidone (Risperdal) 0.5 mg PO BID [facility]; Protocol Stop: 03/19/19 16:59 Last Admin: 01/20/19 09:24 Dose: 0.5 mg Tamsulosin HCl (Flomax) 0.4 mg PO QPM [facility] Stop: 03/18/19 16:59 Last Admin: 01/19/19 17:21 Dose: 0.4 mg General: No acute distress HEENT: Mucous membr. 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 Diabetes mellitus type 2 Hyperlipidemia Hypertension Insulin-dependent diabetes mellitus BPH sich sinus syndrome pacemaker Hypokalemia Echocardiogram showed left ventricular hypertrophy left ventricular enlargement mild aortic stenosis aortic valve area 1.1 cm ejection fraction 61% mild tricuspid regurgitation aortic regurgitation moderate mitral regurgitation - Plan Plan: Continue same management Potassium supplement Nutritional Asmnt/Malnutr-PDOC - Dietary Evaluation Malnutrition Findings (Please click <Entered> for more info): Nutritional Asmnt/Malnutrition Start: 01/17/19 16: 51 Text: Status: Complete Freq: Protocol: Document 01/17/19 16:51 LCHENG (Rec: 01/17/19 17:17 LCELINAG [id number]) Nutritional Asmnt/Malnutrition Patient General Information Nutritional Screening High Risk Consult Diagnosis CVA Pertinent Medical Hx/Surgical Hx HTN, dyslipidemia, tremer Subjective Information Pt seen lying in bed at time of visit, awake, not answering RD greeting. Consult received for BS 297 at admission. Not able to provide diabetic education d/t pt mental status . Pt had swallow eval today d/ t s/p stroke [address] recommended downgrade to pureed thin liquid. Per [employer] pt ate 100% of breakfast this morning. Current Diet Order/ Nutrition Support pureed Pertinent Medications lipitor, lasix, heparin, humalog, culturelle Pertinent Labs 01/17 K 2.9, glucose 145, POC 129-174 Nutritional Hx/Data Height 1.73 m Height (Calculated Centimeters) 172.7 Current Weight (lbs) 86.183 kg Weight (Calculated Kilograms) 86.2 Weight (Calculated Grams) 87192.6 [place] Body Weight 154 Body Mass Index (BMI) 28.8 Weight Status Overweight GI Symptoms GI Symptoms None Last BM none Difficult in: None Skin Integrity/Comment: intact DISCOLORATION to sacrum and both abdomen reddend to groin, bruise to R/ L upper hand alonso 13 Current %PO Good (75-100%) Estimated Nutritional Goals BEE in Kcals: Using Current wt Calories/Kcals/Kg 20-25 Kcals Calculated 1166-1766 Protein: Using Current wt Protein g/k Protein Calculated 86 Fluid: ml 1720-2150ml (1ml/kcal) Nutritional Problem 1. Problem Problem altered nutrition related labs Etiology hyperglycemia Signs/Symptoms: glucose 145, POC 129-174 Malnutrition Alert Is there a minimum of two criteria No selected? Query Text:Check all the applicable criteria. A minimum of two criteria are recommended for diagnosis of either severe or non-severe malnutrition. Malnutrition Related to Morbid Obesity Malnutrition related to morbid obesity No Intervention/Recommendation Comments 1. Continue with pureedt diet as ordered. Recommend adding CCHO diet for optimal glycemic control. RN notified. 2. Monitor PO intake, wt, labs and skin integrity 3. F/U as moderate risk in 3-5 days Expected Outcomes/Goals Expected Outcomes/Goals 1. PO intake to meet at least 75% of nutritional needs. 2. Wt stability, skin to remain intact, labs to approach WNL.
--- NOTE | 2019-01-21 01:27 | Consultation ---
DATE OF CONSULTATION: 01/20/[address] Almanza. IDENTIFYING INFORMATION: The patient is an 83-year-old male. REASON FOR CONSULT: The patient has been on Cymbalta and Risperdal. HISTORY OF PRESENT ILLNESS: The patient is a poor historian. He was brought to the Emergency Room because of hypertension and increased left-sided weakness. The patient was alert, but he could hardly speak or move his lips with flat affect, unable to participate in any meaningful conversation. The patient has some sort of a mood disorder. The patient unable to participate in a meaningful conversation or tell me what brought him here. He appears to be demented, confused, unable to tell me his age, the date, why he is here. PAST PSYCHIATRIC HISTORY: Seem to be on mood disorder. MEDICAL HISTORY: CVA 2 months ago with residual left-sided weakness. He has increased left-sided weakness more than usual with shortness of breath with a history of hypertension, dyslipidemia, hyperlipidemia, right arm tremor. The patient was worked up. The patient has cardiomegaly with a pacemaker placement, right temporoparietal infarct in the right middle cerebral artery distribution, mild edema. MEDICATIONS: The patient currently on Cymbalta 60 mg a day as well as Risperdal 0.5 mg twice a day. The patient also was on albuterol inhaler, amlodipine, aspirin, atorvastatin, Cipro, Plavix, Cymbalta 60 mg daily. He is on Lasix, glucagon and heparin and he has a PEG tube, Risperdal 0.5 mg twice a day and Flomax. FAMILY AND SOCIAL HISTORY: Unobtainable. Unable to provide meaningful conversation. MENTAL STATUS EXAMINATION: The patient is appropriately dressed, not very well groomed. He was alert, but his affect is flat. His thoughts are internally preoccupied, unable to make safe plan for self-care or participate in a meaningful conversation. His long and short term memory is poor. Insight and judgment is impaired. IMPRESSION: Mood disorder, not otherwise specified, dementia. I would recommend to continue his medication. The patient needs followup with the psychiatrist upon discharge. If he starts getting agitated, the patient may need to go to [facility]. Thank you very much for allowing me to participate in the care of this most interesting gentleman. JOB# [id number]
== END 2019-01-20 18:32 | DRG 64 ==
LOC: ER 19:52 → TELE 22:10
PROVIDERS: ADMIT Internal Medicine; ATTEND Internal Medicine
DX: I63.511 Cerebral infarction due to unspecified occlusion or stenosis of right middle cerebral artery (principal); E11.00 Type 2 diabetes mellitus with hyperosmolarity without nonketotic hyperglycemic-hyperosmolar coma (NKHHC); G81.94 Hemiplegia, unspecified affecting left nondominant side; E78.5 Hyperlipidemia, unspecified; R25.1 Tremor, unspecified; J44.9 Chronic obstructive pulmonary disease, unspecified; F03.90 Unspecified dementia, unspecified severity, without behavioral disturbance, psychotic disturbance, mood disturbance, and anxiety; I11.9 Hypertensive heart disease without heart failure; N40.0 Benign prostatic hyperplasia without lower urinary tract symptoms; G40.909 Epilepsy, unspecified, not intractable, without status epilepticus; E87.6 Hypokalemia; I08.3 Combined rheumatic disorders of mitral, aortic and tricuspid valves; F39 Unspecified mood [affective] disorder; Z87.891 Personal history of nicotine dependence; Z79.4 Long term (current) use of insulin; Z95.0 Presence of cardiac pacemaker
CPT/HCPCS: 36415-UA; 70450-TC; 71045-TC; 80048-TC; 80053-TC; 80061-TC; 81001-TC; 82948-90; 83036-90; 83880-TC; 84443-TC; 85025-TC; 93005; 93880-TC; 94760; J0696; J1644; J2001; J3480; J7040; X3401; Z7610

== ENCOUNTER 2019-04-03 10:06 | Inpatient (IN) | payer MEDICARE, OTHER ==
--- NOTE | 2019-04-03 10:26 | ED Physician Chart ---
ED Chief Complaint/HPI - Patient Information Date Seen:: 04/03/19 Time Seen:: 10:15 Chief Complaint:: agitation History of Present Illness:: Patient was sent here for being more confused and agitated than he usually is. Tremor of left arm and face lasting about 90 seconds was noted at 5:30 this morning. Allergies:: Allergies Allergy/AdvReac Type Severity Reaction Status Date / Time codeine Allergy Verified 01/16/19 20:10 lactose Allergy Verified 01/16/19 20:10 morphine Allergy Verified 01/16/19 20:10 Penicillins Allergy Verified 01/16/19 20:10 Historian:: Patient Review:: Transfer documents Reviewed ED Review of Systems - Review of Systems General/Constitutional: No fever Skin: No skin lesions Head: No headache Eyes: No loss of vision ENT: No earache Neck: No neck pain, No swelling Cardio Vascular: No chest pain, No palpitations Pulmonary: No SOB GI: No nausea, No vomiting, No diarrhea G/U: No dysuria Musculoskeletal: No bone or joint pain Endocrine: No polyuria Psychiatric: Prior psych history ED Past Medical History - Past Medical History Past Medical History: DM, Other (remainder of past medical history not available ) Family History: Other (not available) Social History: Care Facility Surgical History: other (cardiac pacemaker; other possible surgeries unknown) Psychiatricy History: Other (presumed dementia) Medication: Reviewed Family Medical History - Family Member Daughter History Unknown: Yes Ethnicity: Non- Living Status: Still Living Hx Family Cancer: (unknown) Hx Family Coronary Artery Disease: (UNKNOWN) Hx Family Congestive Heart Failure: (UNKNOWN) Hx Family Hypertension: (UNKNOWN) Hx Family Stroke: (UNKNOWN) Hx Family Diabetes: (UNKNOWN) Hx Family Seizures: (UNKNOWN) Hx Family Dementia: (UNKNOWN) Hx Family AIDS: (UNKNOWN) Hx Family COPD: (UNKNOWN) Hx Family Hepatitis: (UNKNOWN) Hx Family Psychiatric Problems: (UNKNOWN) Hx Family Tuberculosis: (UNKNOWN) ED Physical Exam - Physical Examination General/Constitutional: Awake Other Gen/Cons comments:: Patient is agitated and yelling Head: Atraumatic Eyes: Lids, conjuctiva normal, PERRL Skin: Nl inspection, No rash ENMT: External ears, nose nl Other ENMT comments:: Edentulous Neck: No nuchal rigidity Respiratory: Nl effort/Exclusion, Clear to Auscultation Cardio Vascular: RRR, No murmur, gallop, rubs GI: No tenderness/rebounding/guarding Extremities: Normal digits & nails Neuro/Psych: No focal deficits ED Labs/Radiology/EKG Results - Lab Results Results: Laboratory Results WBC 11.0 Th/cmm (4.8-10.8) H 04/03/19 10:36 RBC 4.61 Mil/cmm (3.80-5.80) 04/03/19 10:36 Hgb 12.0 gm/dL (12-16) 04/03/19 10:36 Hct 36.3 % (41.0-60) L 04/03/19 10:36 MCV 78.7 fl (80-99) L 04/03/19 10:36 MCH 25.9 pg (27.0-31.0) L 04/03/19 10:36 MCHC Differential 32.9 pg (28.0-36.0) 04/03/19 10:36 RDW 16.2 % (11.5-20.0) 04/03/19 10:36 Plt Count 289 Th/cmm (150-400) 04/03/19 10:36 MPV 8.1 fl 04/03/19 10:36 Neutrophils % 79.1 % (40.0-80.0) 04/03/19 10:36 Lymphocytes % 11.7 % (20.0-50.0) L 04/03/19 10:36 Monocytes % 8.0 % (2.0-10.0) 04/03/19 10:36 Eosinophils % 0.7 % (0.0-5.0) 04/03/19 10:36 Basophils % 0.5 % (0.0-2.0) 04/03/19 10:36 Sodium 145 mEq/L (136-145) 04/03/19 10:36 Potassium 3.3 mEq/L (3.5-5.1) L 04/03/19 10:36 Chloride 110 mEq/L (98-107) H 04/03/19 10:36 Carbon Dioxide 22.0 mEq/L (21.0-31.0) 04/03/19 10:36 Anion Gap 16.3 (7.0-16.0) H 04/03/19 10:36 BUN 14 mg/dL (7-25) 04/03/19 10:36 Creatinine 0.9 mg/dL (0.7-1.3) 04/03/19 10:36 Est GFR ( Amer) TNP 04/03/19 10:36 Est GFR (Non-Af Amer) TNP 04/03/19 10:36 BUN/Creatinine Ratio 15.6 04/03/19 10:36 Glucose 127 mg/dL (70-105) H 04/03/19 10:36 POC Glucose 120 MG/DL (70 - 105) H 04/03/19 10:32 Calcium 8.3 mg/dL (8.6-10.3) L 04/03/19 10:36 Total Bilirubin 0.8 mg/dL (0.3-1.0) 04/03/19 10:36 AST 19 U/L (13-39) 04/03/19 10:36 ALT 13 U/L (7-52) 04/03/19 10:36 Alkaline Phosphatase 92 U/L (34-104) 04/03/19 10:36 Total Protein 5.7 gm/dL (6.0-8.3) L 04/03/19 10:36 Albumin 3.6 gm/dL (4.2-5.5) L 04/03/19 10:36 Globulin 2.1 gm/dL 04/03/19 10:36 Albumin/Globulin Ratio 1.7 (1.0-1.8) 04/03/19 10:36 Triglycerides 99 mg/dL (<150) 04/03/19 10:36 Cholesterol 111 mg/dL (<200) 04/03/19 10:36 LDL Cholesterol Direct 65 mg/dL (75-193) L 04/03/19 10:36 HDL Cholesterol 27 mg/dL (23-92) 04/03/19 10:36 Laboratory Results WBC 11.0 Th/cmm (4.8-10.8) H 04/03/19 10:36 RBC 4.61 Mil/cmm (3.80-5.80) 04/03/19 10:36 Hgb 12.0 gm/dL (12-16) 04/03/19 10:36 Hct 36.3 % (41.0-60) L 04/03/19 10:36 MCV 78.7 fl (80-99) L 04/03/19 10:36 MCH 25.9 pg (27.0-31.0) L 04/03/19 10:36 MCHC Differential 32.9 pg (28.0-36.0) 04/03/19 10:36 RDW 16.2 % (11.5-20.0) 04/03/19 10:36 Plt Count 289 Th/cmm (150-400) 04/03/19 10:36 MPV 8.1 fl 04/03/19 10:36 Neutrophils % 79.1 % (40.0-80.0) 04/03/19 10:36 Lymphocytes % 11.7 % (20.0-50.0) L 04/03/19 10:36 Monocytes % 8.0 % (2.0-10.0) 04/03/19 10:36 Eosinophils % 0.7 % (0.0-5.0) 04/03/19 10:36 Basophils % 0.5 % (0.0-2.0) 04/03/19 10:36 Sodium 145 mEq/L (136-145) 04/03/19 10:36 Potassium 3.3 mEq/L (3.5-5.1) L 04/03/19 10:36 Chloride 110 mEq/L (98-107) H 04/03/19 10:36 Carbon Dioxide 22.0 mEq/L (21.0-31.0) 04/03/19 10:36 Anion Gap 16.3 (7.0-16.0) H 04/03/19 10:36 BUN 14 mg/dL (7-25) 04/03/19 10:36 Creatinine 0.9 mg/dL (0.7-1.3) 04/03/19 10:36 Est GFR ( Amer) TNP 04/03/19 10:36 Est GFR (Non-Af Amer) TNP 04/03/19 10:36 BUN/Creatinine Ratio 15.6 04/03/19 10:36 Glucose 127 mg/dL (70-105) H 04/03/19 10:36 POC Glucose 120 MG/DL (70 - 105) H 04/03/19 10:32 Calcium 8.3 mg/dL (8.6-10.3) L 04/03/19 10:36 Total Bilirubin 0.8 mg/dL (0.3-1.0) 04/03/19 10:36 AST 19 U/L (13-39) 04/03/19 10:36 ALT 13 U/L (7-52) 04/03/19 10:36 Alkaline Phosphatase 92 U/L (34-104) 04/03/19 10:36 Total Protein 5.7 gm/dL (6.0-8.3) L 04/03/19 10:36 Albumin 3.6 gm/dL (4.2-5.5) L 04/03/19 10:36 Globulin 2.1 gm/dL 04/03/19 10:36 Albumin/Globulin Ratio 1.7 (1.0-1.8) 04/03/19 10:36 Triglycerides 99 mg/dL (<150) 04/03/19 10:36 Cholesterol 111 mg/dL (<200) 04/03/19 10:36 LDL Cholesterol Direct 65 mg/dL (75-193) L 04/03/19 10:36 HDL Cholesterol 27 mg/dL (23-92) 04/03/19 10:36 - EKG Interpretations Rate & Rhythm: ventricular pacemaker at a rate of about 70 ED Assessment - Assessment General Assessment: Patient is medically stable to be admitted to [facility] ED Septic Shock - . Is Septic Shock (SBP<90, OR Lactate>4 mmol\L) present?: No ED Reassessment (Disposition) - Reassessment Reassessment Condition:: Unchanged - Diagnosis Diagnosis:: Dementia with agitation; diabetes - Patient Disposition Admitted to:: [facility] Admitting Medical Physician:: Rubia Evans Admitting Psych Physician:: Nathan Robins Condition at Disposition:: Stable, Unchanged
[2019-04-03 10:45] LABS: % EOSINOPHILS 0.7 % (0.0-5.0); EOSINOPHILE ABSOLUTE 0.1 Th/cmm (0.1-0.4); MONOCYTE ABSOLUTE 0.9 Th/cmm (0.3-1.0); NEUTROPHILE ABSOLUTE 8.6 Th/cmm (1.8-8.0)
[2019-04-03 11:02] LABS: % BASOPHILS 0.5 % (0.0-2.0); % LYMPHOCYTES 11.7 % (20.0-50.0); % NEUTROPHILS 79.1 % (40.0-80.0); BASOPHILE ABSOLUTE 0.1 Th/cumm (0-0.2); HEMATOCRIT 36.3 % (41.0-60); LYMPHOCYTE ABSOLUTE 1.3 Th/cmm (1.5-3.0); MEAN CELL VOLUME 78.7 fl (80-99); MEAN CORPUSCULAR HEMOGLOBIN 25.9 pg (27.0-31.0); MEAN CORPUSCULAR HGB CONC 32.9 pg (28.0-36.0); PLATELET COUNT 289 Th/cmm (150-400); RED BLOOD COUNT 4.61 Mil/cmm (3.80-5.80); RED CELL DISTRIBUTION WIDTH 16.2 % (11.5-20.0)
[2019-04-03 11:08] LABS: ALB/GLOB RATIO 1.7 (1.0-1.8); ALBUMIN 3.6 gm/dL (4.2-5.5); ALKALINE PHOSPHATASE 92 U/L (34-104); ANION GAP 16.3 (7.0-16.0); BILIRUBIN,TOTAL 0.8 mg/dL (0.3-1.0); BUN - UREA NITROGEN 14 mg/dL (7-25); CALCIUM SERUM 8.3 mg/dL (8.6-10.3); CHLORIDE 110 mEq/L (98-107); CHOLESTEROL 111 mg/dL (<200); CREATININE - SERUM 0.9 mg/dL (0.7-1.3); GLUCOSE 127 mg/dL (70-105); HDL -HIGH DENSITY LIPOPROTEIN 27 mg/dL (23-92); POTASSIUM SERUM 3.3 mEq/L (3.5-5.1); SGOT 19 U/L (13-39); SGPT/ALT 13 U/L (7-52); SODIUM SERUM 145 mEq/L (136-145); TOTAL PROTEIN,SERUM 5.7 gm/dL (6.0-8.3); TRIGLYCERIDES 99 mg/dL (<150)
--- NOTE | 2019-04-03 13:57 | Diagnostic Imaging Report ---
Head CT without intravenous contrast Indication: CVA Comparison: Head CT on 01/16/2019 Technique: Axial images were obtained from the vertex to the skull base without IV contrast. Coronal reconstructions were made. Total DLP: 1120, CTDI86 FINDINGS: Exam is limited due to patient motion and difficulty cooperating. There is no evidence of an acute hemorrhage. Areas of encephalomalacia are seen involving the right frontal, temporal, and parietal occipital lobes. Atrophy is noted. The ventricles and basal cisterns are patent. No mass effect or midline shift. Atherosclerosis is noted. No evidence of a skull fracture focal soft tissue swelling. Paranasal sinus disease is seen with opacification of right mid and posterior ethmoid air cells. There is mucosal thickening of paranasal sinuses. IMPRESSION: No evidence of acute intracranial hemorrhage. Areas of encephalomalacia throughout the right cerebral hemisphere which may be due to old infarcts Atrophy. Atherosclerotic vascular disease. Sinus disease.
[2019-04-03] MEDS ORDERED: Magnesium Hydroxide (MOM) 30 mL UDC PO PRN (14:40)
[2019-04-03 15:04] VITALS: BP 132/70
[2019-04-03] MEDS: Apixaban 5 MG TABLET PO SCH (17:12)
[2019-04-03] MEDS: INSULIN LISPRO SLIDING SCALE 100 UNITS/ML UNIT SUBQ SCH (17:13)
--- NOTE | 2019-04-03 18:20 | History & Physical ---
ADMIT DATE: 04/03/2019 DICTATED FOR: Dr. Evans. CHIEF COMPLAINT: Confusion and agitation. HISTORY OF PRESENT ILLNESS: This is an 83-year-old male who is a senior living resident, who was admitted to the Geropsych Unit due to agitation and more confused as usual, as per nursing staff. The patient was also noted at the senior living to have tremors of the left arm and face, lasting about 90 seconds that was noticed around 5 in the morning. The patient had a CT of the head done and it was unremarkable. Upon examination, the patient is in bed. He is awake, not really interactive, in no apparent distress. No signs and symptoms of any facial drooping. The patient has noted with generalized weakness. The patient's CT of the head also shows old infarcts. PAST MEDICAL HISTORY: Diabetes, as per CT of the head old infarct. FAMILY HISTORY: Noncontributory. SOCIAL HISTORY: The patient is a senior living resident. SURGICAL HISTORY: Cardiac pacemaker. MEDICATIONS: See medication list. REVIEW OF SYSTEMS: Unable to obtain, the patient is not really interactive. PHYSICAL EXAMINATION: GENERAL: Elderly male, well developed, well nourished, no apparent distress. VITAL SIGNS: Temperature 97.2, heart rate 62, blood pressure 132/70, respirations 18, O2 95%. HEENT: Head; normocephalic, atraumatic. NECK: Supple. No mass. LUNGS: Clear bilaterally. HEART: Regular rhythm. ABDOMEN: Soft, nontender. LABORATORY DATA: WBC 11.0, H and H 12.0 and 36.3, platelet of 289. Sodium 145, potassium 2.3, chloride 110, BUN 14, creatinine 0.9. Albumin of 3.6. ASSESSMENT: Agitation, as per SNF, old infarct as per CT of the head, hypokalemia, moderate protein-calorie malnutrition, hypercholesterolemia, coronary artery disease, type 2 diabetes. PLAN: We will continue the patient's home medications. Fall precautions will be initiated. We will continue to monitor this patient. JOB# [id number]
[2019-04-03] MEDS ORDERED: Maalox 30 mL Cup PO PRN (19:43)
[2019-04-03] MEDS ORDERED: INSULIN HUMAN ISOPHANE (NPH) 100 UNITS/ML SUBQ SCH (21:00)
[2019-04-03] MEDS ORDERED: INSULIN LISPRO SLIDING SCALE 100 UNITS/ML UNIT SUBQ SCH (21:00)
--- NOTE | 2019-04-03 21:19 | Psychiatric Evaluation ---
DATE OF SERVICE: 04/03/2019 PSYCHIATRIC EVALUATION IDENTIFYING DATA: The patient is an 83-year-old male, resident of a [facility]. Information obtained by directly interviewing the patient as well as reviewing the admission papers and they are reliable. JUSTIFICATION FOR HOSPITALIZATION: The patient is admitted here on a 5150 as a danger to others and being gravely disabled. CHIEF COMPLAINT: "I don't know. My back is hurting." HISTORY OF PRESENT ILLNESS: This is the second psychiatric hospitalization to [facility] for this patient who is reported to have been hospitalized in the beginning of this month. The patient is reported to have been getting easily agitated and has been trying to be aggressive towards the staff. They could not be contained at a lower level of care and the patient has been transferred over here for stabilization. PAST PSYCHIATRIC HISTORY: The patient is reported to have been hospitalized here in the beginning of this month. MEDICAL HISTORY AND PHYSICAL EXAMINATION: Requested to be done by Dr. Evans. SOCIAL HISTORY: The patient is a resident of a senior care facility. PHYSICAL OR SEXUAL ABUSE HISTORY: Details are not known. SUBSTANCE ABUSE HISTORY: None reported. MENTAL STATUS EXAMINATION: The patient is an 83-year-old, looking his stated age, very easily agitated and has been moving back and forth. The patient is not able to articulate well. Insight and judgment at this time are noted to be still impaired. Impulse control is noted to be limited. The patient's coping skills are noted to be limited. The patient has been having difficult time to cope with the stress. The patient is demented at this time and very confused. Attention span and concentration noted to be very poor. The patient is reported to have been aggressive towards the staff at the facility. The patient is not suicidal. The patient is not able to recall his date of and the patient needs to be prompted. DIAGNOSTIC IMPRESSION: AXIS I: Psychotic disorder, not otherwise specified. IB. Dementia and behavioral change, secondary trait. IMMEDIATE TREATMENT PLAN: The patient is going to be observed on inpatient unit, provided with supportive psychotherapy. The patient is going to be closely monitored and encouraged to verbalize the concerns. Once stabilized, the [facility] up on an outpatient basis. [facility]# [id number]
[2019-04-03] MEDS: Peg-400/Propylene Ophth Soln 5 mL Bottle EACH EYE SCH (21:35)
[2019-04-04 07:05] LABS: A1C 7.2 % (4.8-5.6)
[2019-04-04] MEDS ORDERED: Potassium Chloride 20 mEq ER Tab PO SCH (09:00)
[2019-04-04] MEDS ORDERED: Multivitamin Tab PO SCH (09:00)
[2019-04-04] MEDS: INSULIN LISPRO SLIDING SCALE 100 UNITS/ML UNIT SUBQ SCH (09:08)
[2019-04-04] MEDS: Apixaban 5 MG TABLET PO SCH (09:08)
[2019-04-04] MEDS: Peg-400/Propylene Ophth Soln 5 mL Bottle EACH EYE SCH ×2 (09:09→15:00)
--- NOTE | 2019-04-04 10:59 | Internal Medicine Prog Note ---
Internal Medicine Subjective - Subjective Service Date: 04/04/19 Patient seen and examined:: with staff Patient is:: awake, verbal, agitated, confused Patient Complaints of:: other (Having tremors of the left arm and face.) Per staff patient has:: no adverse event, no episodes of fall Internal Medicine Objective - Results Result Diagrams: 04/03/19 10:36 04/03/19 10:36 Recent Labs: Laboratory Last Values WBC 11.0 Th/cmm (4.8-10.8) H 04/03/19 10:36 RBC 4.61 Mil/cmm (3.80-5.80) 04/03/19 10:36 Hgb 12.0 gm/dL (12-16) 04/03/19 10:36 Hct 36.3 % (41.0-60) L 04/03/19 10:36 MCV 78.7 fl (80-99) L 04/03/19 10:36 MCH 25.9 pg (27.0-31.0) L 04/03/19 10:36 MCHC Differential 32.9 pg (28.0-36.0) 04/03/19 10:36 RDW 16.2 % (11.5-20.0) 04/03/19 10:36 Plt Count 289 Th/cmm (150-400) 04/03/19 10:36 MPV 8.1 fl 04/03/19 10:36 Neutrophils % 79.1 % (40.0-80.0) 04/03/19 10:36 Lymphocytes % 11.7 % (20.0-50.0) L 04/03/19 10:36 Monocytes % 8.0 % (2.0-10.0) 04/03/19 10:36 Eosinophils % 0.7 % (0.0-5.0) 04/03/19 10:36 Basophils % 0.5 % (0.0-2.0) 04/03/19 10:36 Sodium 145 mEq/L (136-145) 04/03/19 10:36 Potassium 3.3 mEq/L (3.5-5.1) L 04/03/19 10:36 Chloride 110 mEq/L (98-107) H 04/03/19 10:36 Carbon Dioxide 22.0 mEq/L (21.0-31.0) 04/03/19 10:36 Anion Gap 16.3 (7.0-16.0) H 04/03/19 10:36 BUN 14 mg/dL (7-25) 04/03/19 10:36 Creatinine 0.9 mg/dL (0.7-1.3) 04/03/19 10:36 Est GFR ( Amer) TNP 04/03/19 10:36 Est GFR (Non-Af Amer) TNP 04/03/19 10:36 BUN/Creatinine Ratio 15.6 04/03/19 10:36 Glucose 127 mg/dL (70-105) H 04/03/19 10:36 POC Glucose 110 MG/DL (70 - 105) H 04/03/19 20:40 Calcium 8.3 mg/dL (8.6-10.3) L 04/03/19 10:36 Total Bilirubin 0.8 mg/dL (0.3-1.0) 04/03/19 10:36 AST 19 U/L (13-39) 04/03/19 10:36 ALT 13 U/L (7-52) 04/03/19 10:36 Alkaline Phosphatase 92 U/L (34-104) 04/03/19 10:36 Total Protein 5.7 gm/dL (6.0-8.3) L 04/03/19 10:36 Albumin 3.6 gm/dL (4.2-5.5) L 04/03/19 10:36 Globulin 2.1 gm/dL 04/03/19 10:36 Albumin/Globulin Ratio 1.7 (1.0-1.8) 04/03/19 10:36 Triglycerides 99 mg/dL (<150) 04/03/19 10:36 Cholesterol 111 mg/dL (<200) 04/03/19 10:36 LDL Cholesterol Direct 65 mg/dL (75-193) L 04/03/19 10:36 HDL Cholesterol 27 mg/dL (23-92) 04/03/19 10:36 TSH 1.17 uIU/ml (0.34-5.60) 04/03/19 10:36 - Physical Exam Vitals and I&O: Vital Signs Temp 97.6 F 04/03/19 18:00 Pulse 68 04/03/19 18:00 Resp 18 04/03/19 18:00 BP 146/78 04/03/19 18:00 Pulse Ox 98 04/03/19 18:00 Intake & Output 04/03/19 04/04/19 04/04/19 18:59 06:59 18:59 Intake Total 240 Balance 240 Weight (lbs) 95.254 kg Intake: Oral 240 Other: # Voids 2 # Bowel Movements 0 Stool Characteristics Formed Weight Source Estimated Active Medications: Current Medications Acetaminophen (Tylenol) 650 mg PO Q4HR PRN PRN Reason: MILD PAIN Stop: 06/02/19 14:39 Al Hydrox/Mg Hydrox/Simethicone (Maalox) 30 ml PO Q4HR PRN PRN Reason: GI DISTRESS Stop: 06/02/19 19:42 Amlodipine Besylate (Norvasc) 10 mg PO DAILY [facility] Stop: 06/03/19 08:59 Last Admin: 04/04/19 09:08 Dose: Not Given Aspirin (Ecotrin) 81 mg PO DAILY [facility] Stop: 06/03/19 08:59 Last Admin: 04/04/19 09:08 Dose: Not Given Atorvastatin Calcium (Lipitor) 40 mg PO HS [facility]; Protocol Stop: 06/02/19 20:59 Last Admin: 04/03/19 21:35 Dose: 40 mg Clopidogrel Bisulfate (Plavix) 75 mg PO DAILY [facility] Stop: 06/03/19 08:59 Last Admin: 04/04/19 09:08 Dose: Not Given Docusate Sodium (Colace) 100 mg PO BID [facility] Stop: 06/02/19 16:59 Last Admin: 04/04/19 09:08 Dose: Not Given Duloxetine HCl (Cymbalta) 60 mg PO DAILY [facility]; Protocol Stop: 06/03/19 08:59 Last Admin: 04/04/19 09:08 Dose: Not Given Insulin Human Lispro (Humalog Insulin Sliding Scale) 0 units SUBQ BID [facility]; Protocol Stop: 06/02/19 16:59 Last Admin: 04/04/19 09:08 Dose: Not Given Insulin Human Lispro (Humalog Insulin Sliding Scale) 0 units SUBQ HS [facility]; Protocol Stop: 06/02/19 20:59 Last Admin: 04/03/19 21:37 Dose: Not Given Insulin Human NPH (Novolin N) 10 units SUBQ HS [facility]; Protocol Stop: 06/02/19 20:59 Last Admin: 04/03/19 21:39 Dose: Not Given Lorazepam (Ativan) 0.5 mg PO Q4HR PRN; Protocol PRN Reason: Anxiety Stop: 05/03/19 19:42 Magnesium Hydroxide (Milk Of Magnesia) 30 ml PO HS PRN PRN Reason: Constipation Stop: 06/02/19 14:39 Multivitamins/Vitamin C (Theragran) 1 tab PO DAILY [facility] Stop: 06/03/19 08:59 Last Admin: 04/04/19 09:08 Dose: Not Given Potassium Chloride (Klor-Con) 20 meq PO DAILY [facility] Stop: 06/03/19 08:59 Last Admin: 04/04/19 09:09 Dose: Not Given Propylene Glycol (Systane Ophth Soln) 1 drop EACH EYE TID [facility] Stop: 06/02/19 20:59 Last Admin: 04/04/19 09:09 Dose: Not Given Quetiapine Fumarate (Seroquel) 0.25 mg PO BID [facility]; Protocol Stop: 06/03/19 08:59 Zolpidem Tartrate (Ambien) 5 mg PO HS PRN PRN Reason: Insomnia Stop: 06/02/19 19:42 Physical Exam: 83 y/o male patient has history of Diabetes and Old Infarction per Ct scan. Patient has Cardiac pacemaker. General: weak, demented HEENT: NC/AT Neck: Supple Lungs: CTAB Cardiovascular: RRR, Normal S1 Abdomen: soft, non-tender Extremities: clear Neurological: no change Internal Medicine Assmt/Plan - Assessment Assessment: Agitation. Old Infarct as per CT of the head. Hypokalemia. Moderate protein- calorie malnutrition. Hypercholesterolemia. Coronary Artery Disease. Diabetes Mellitus Type 2. Cardiac pacemaker status. - Plan Plan: Continuation of care. Monitor Vitals and Labs. Continue present meds as directed. Accu-check daily, Continue DM meds as directed. Monitor Diet/Nutritional support. Psych management per Psych. Pain Management. Physical therapy. Occupational therapy. Safety precaution. Supportive care. Fall precaution, frequent nursing rounds, and as needed restraints to prevent fall. Continue collaborating with consulting specialists, case management and nursing team. Will Monitor patient and continue current treatment plan as ordered. Nutritional Asmnt/Malnutr-PDOC - Dietary Evaluation Malnutrition Findings (Please click <Entered> for more info): see orders.
[2019-04-04] MEDS ORDERED: Hydrocodone/APAP 10 mg/325 mg Tab PO PRN (15:30)
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
== END 2019-04-04 16:30 | disposition short-term general hospital (02) | DRG 885 ==
LOC: ER 10:06 → GERO 11:50
PROVIDERS: ADMIT Psychiatry & Neurology Psychiatry; ATTEND Psychiatry & Neurology Psychiatry
DX: F29 Unspecified psychosis not due to a substance or known physiological condition (principal); F03.91 Unspecified dementia, unspecified severity, with behavioral disturbance; E44.0 Moderate protein-calorie malnutrition; E11.9 Type 2 diabetes mellitus without complications; E87.6 Hypokalemia; E78.00 Pure hypercholesterolemia, unspecified; I25.10 Atherosclerotic heart disease of native coronary artery without angina pectoris; Z86.73 Personal history of transient ischemic attack (TIA), and cerebral infarction without residual deficits; Z95.0 Presence of cardiac pacemaker; Z68.31 Body mass index [BMI] 31.0-31.9, adult; Z88.5 Allergy status to narcotic agent; Z88.0 Allergy status to penicillin; Z91.011 Allergy to milk products
CPT/HCPCS: 36415-UA; 70450-TC; 80053-TC; 80061-TC; 82948-90; 83036-90; 84443-TC; 85025-TC; 86592-TC; 93005; J1815; J2060

== ENCOUNTER 2019-04-04 17:28 | Inpatient (IN) | payer MEDICARE, OTHER ==
[2019-04-04] MEDS ORDERED: Hydrocodone/APAP 10 mg/325 mg Tab PO PRN ×2 (17:38→17:41)
[2019-04-04] MEDS ORDERED: Maalox 30 mL Cup PO PRN (18:09)
[2019-04-04 18:41] VITALS: BP 156/55
[2019-04-04] MEDS ORDERED: GLUCAGON HCl 1 MG KIT IM PRN (19:36)
[2019-04-04] MEDS ORDERED: Dextrose 50% 50 mL Abboject IVP PRN (19:36)
[2019-04-04] MEDS: INSULIN LISPRO SLIDING SCALE 100 UNITS/ML UNIT SUBQ SCH ×2 (20:28→23:45)
--- NOTE | 2019-04-04 20:55 | Progress Notes ---
DATE: 04/04/2019 SUBJECTIVE: Staff was spoken to. Chart is reviewed. The patient is reported to have been having tremor in the left upper extremity and the patient is reported to have a CT scan of the head yesterday and nothing showed up and then the family is worried about the patient having a CVA and Dr. Evans was informed and the patient has been transferred to the Medical Unit for further care. The patient is going to be followed up on an as needed basis. JOB# [id number]
[2019-04-05] MEDS ORDERED: Potassium Chloride 20 mEq ER Tab PO ONE (00:30)
[2019-04-05 05:50] LABS: % BASOPHILS 0.2 % (0.0-2.0); % LYMPHOCYTES 15.9 % (20.0-50.0); % MONOCYTES 12.7 % (2.0-10.0); % NEUTROPHILS 68.2 % (40.0-80.0); EOSINOPHILE ABSOLUTE 0.3 Th/cmm (0.1-0.4); HEMATOCRIT 37.4 % (41.0-60); HEMOGLOBIN 11.9 gm/dL (12-16); LYMPHOCYTE ABSOLUTE 1.7 Th/cmm (1.5-3.0); MEAN CELL VOLUME 80.3 fl (80-99); MEAN CORPUSCULAR HEMOGLOBIN 25.6 pg (27.0-31.0); MEAN CORPUSCULAR HGB CONC 31.9 pg (28.0-36.0); MONOCYTE ABSOLUTE 1.3 Th/cmm (0.3-1.0); NEUTROPHILE ABSOLUTE 7.1 Th/cmm (1.8-8.0); PLATELET COUNT 300 Th/cmm (150-400); RED BLOOD COUNT 4.65 Mil/cmm (3.80-5.80); RED CELL DISTRIBUTION WIDTH 16.6 % (11.5-20.0); WHITE BLOOD COUNT 10.4 Th/cmm (4.8-10.8)
[2019-04-05] MEDS: INSULIN LISPRO SLIDING SCALE 100 UNITS/ML UNIT SUBQ SCH ×3 (06:00→23:54)
[2019-04-05 06:15] LABS: ANION GAP 16.4 (7.0-16.0); BUN - UREA NITROGEN 13 mg/dL (7-25); CALCIUM SERUM 8.4 mg/dL (8.6-10.3); CARBON DIOXIDE 20.9 mEq/L (21.0-31.0); CHLORIDE 110 mEq/L (98-107); CREATININE - SERUM 0.9 mg/dL (0.7-1.3); GLUCOSE 155 mg/dL (70-105); POTASSIUM SERUM 3.3 mEq/L (3.5-5.1); SODIUM SERUM 144 mEq/L (136-145)
[2019-04-05] MEDS: Apixaban 5 MG TABLET PO SCH ×2 (09:38→17:37)
[2019-04-05] MEDS: D5-0.45NS 1,000 ML IV SCH (11:00)
--- NOTE | 2019-04-05 12:00 | History & Physical ---
ADMIT DATE: 04/04/2019 CHIEF COMPLAINT: Left-sided weakness. HISTORY OF PRESENT ILLNESS: This is an 83-year-old male who was originally admitted from a residential facility and transferred to [facility] Unit for psychiatric management. During his stay in the Psychiatric Unit, the patient was found to have some ongoing left-sided weakness, for which the patient was transferred to telemetry unit for further observation and management. REVIEW OF SYSTEMS: GENERAL: This is an 83-year-old male. No fever. Positive weakness. HEENT: No headache. No dizziness. EYES: No eye pain. No blurring vision. NECK: No neck pain. No nuchal rigidity. CHEST: No chest pain. No palpitation. PULMONARY: No coughing. No shortness of breath. GASTROINTESTINAL: No abdominal pain. No constipation. No diarrhea. MUSCULOSKELETAL: No joint pain. No muscle pain. SOCIAL HISTORY: The patient lived in a residential facility prior to hospitalization to the Psychiatric Unit. Denies nicotine, alcohol or illicit drug use. PSYCHIATRIC HISTORY: Includes possible dementia. PAST SURGICAL HISTORY: Unremarkable. FAMILY HISTORY: Unremarkable. PAST MEDICAL HISTORY: Includes diabetes, arthritis, hypertension, atrial fibrillation, coronary artery disease, hyperlipidemia. PHYSICAL EXAMINATION: VITAL SIGNS: Temperature 98, heart rate 57, blood pressure 134/55, respiration 18 and 95% on room air. GENERAL: This is an 83-year-old male who appears as stated, in no acute distress. HEENT: Head is atraumatic and normocephalic. Eyes: Bilateral conjunctivae are clear. Bilateral pupils are equally round and reactive. NECK: Supple. No JVD. CARDIOVASCULAR: S1 and S2, without murmur. PULMONARY: Clear to auscultation. GASTROINTESTINAL: Soft and nontender without guarding. Positive bowel sounds. MUSCULOSKELETAL: No clubbing. No cyanosis. Generalized weakness. ASSESSMENT: 1. Generalized weakness. 2. Possible dementia. 3. Hypertension. 4. Atrial fibrillation. 5. Hyperlipidemia. 6. Coronary artery disease. PLAN: We will admit the patient to telemetry. We will do medication reconciliation accordingly. We will put the patient on 1:1 sitter for safety. We will consult with psychiatrist and neurologist. We will put the patient on aspiration precaution. Treatment plans were discussed with the patient's nurse. Treatment plans were discussed with Dr. Evans. PSYCHIATRIC# [id number]
[2019-04-05] MEDS ORDERED: Sodium Chloride 0.45% 500 ML IV SCH (17:42)
[2019-04-06] MEDS ORDERED: Potassium Chloride 20 mEq ER Tab PO ONE ×2 (00:30→09:56)
[2019-04-06] MEDS: D5-0.45NS 1,000 ML IV SCH ×2 (04:26→18:49)
[2019-04-06 06:29] LABS: HEMOGLOBIN 11.9 gm/dL (12-16); MEAN CELL VOLUME 80.5 fl (80-99); MEAN CORPUSCULAR HEMOGLOBIN 25.9 pg (27.0-31.0); MEAN CORPUSCULAR HGB CONC 32.2 pg (28.0-36.0); PLATELET COUNT 273 Th/cmm (150-400); RED BLOOD COUNT 4.59 Mil/cmm (3.80-5.80); RED CELL DISTRIBUTION WIDTH 16.2 % (11.5-20.0); WHITE BLOOD COUNT 8.8 Th/cmm (4.8-10.8)
[2019-04-06 06:51] LABS: ANION GAP 13.4 (7.0-16.0); BUN - UREA NITROGEN 12 mg/dL (7-25); CALCIUM SERUM 8.4 mg/dL (8.6-10.3); CARBON DIOXIDE 22.7 mEq/L (21.0-31.0); CHLORIDE 111 mEq/L (98-107); CREATININE - SERUM 0.8 mg/dL (0.7-1.3); GLUCOSE 161 mg/dL (70-105); POTASSIUM SERUM 3.1 mEq/L (3.5-5.1); SODIUM SERUM 144 mEq/L (136-145)
[2019-04-06] MEDS: INSULIN LISPRO SLIDING SCALE 100 UNITS/ML UNIT SUBQ SCH ×3 (06:51→18:48)
--- NOTE | 2019-04-06 08:07 | Diagnostic Imaging Report ---
Bilateral carotid Doppler ultrasound exam HISTORY: Stroke, CVA Sonographic sector images were obtained through the carotid bifurcation regions bilaterally. Associated Doppler data was obtained. The exam of the right side demonstrates generalized intimal thickening throughout the bifurcation region along with mild multifocal atherosclerotic plaque. No significant narrowing or stenosis. Antegrade vertebral artery flow. Elevated velocities noted within the internal carotid artery region. Increase in the ICA/CCA flow ratio (2.6). The findings may be associated with somewhat more significant disease off of the [id number]. The left side demonstrates mild generalized intimal thickening along with mild diffuse plaque. No significant narrowing or stenosis. Antegrade vertebral artery flow. ICA/CCA flow ratios normal (0.99). IMPRESSION: 1. Abnormal Doppler data on the right side suggesting narrowing between 50 and 70%. However, no significant sonographic narrowing is visualized. Findings may be associated with more significant disease off of the [id number]. A CT angiographic evaluation of the carotid arteries may be helpful. 2. Evidence of mild diffuse atherosclerotic changes in the left side.
[2019-04-06] MEDS: Apixaban 5 MG TABLET PO SCH ×2 (09:04→16:45)
--- NOTE | 2019-04-06 10:10 | Internal Medicine Prog Note ---
Internal Medicine Subjective - Subjective Patient seen and examined:: with staff Patient is:: awake, verbal Per staff patient has:: no adverse event, no episodes of fall Internal Medicine Objective - Results Result Diagrams: 04/06/19 06:05 04/06/19 06:05 Recent Labs: Laboratory Last Values WBC 8.8 Th/cmm (4.8-10.8) 04/06/19 06:05 RBC 4.59 Mil/cmm (3.80-5.80) 04/06/19 06:05 Hgb 11.9 gm/dL (12-16) L 04/06/19 06:05 Hct 37.0 % (41.0-60) L 04/06/19 06:05 MCV 80.5 fl (80-99) 04/06/19 06:05 MCH 25.9 pg (27.0-31.0) L 04/06/19 06:05 MCHC Differential 32.2 pg (28.0-36.0) 04/06/19 06:05 RDW 16.2 % (11.5-20.0) 04/06/19 06:05 Plt Count 273 Th/cmm (150-400) 04/06/19 06:05 MPV 7.9 fl 04/06/19 06:05 Add Manual Diff PEARL TECHNICIAN 04/06/19 06:05 Neutrophils % PEARL TECHNICIAN 04/06/19 06:05 Lymphocytes % PEARL TECHNICIAN 04/06/19 06:05 Monocytes % PEARL TECHNICIAN 04/06/19 06:05 Eosinophils % PEARL TECHNICIAN 04/06/19 06:05 Basophils % PEARL TECHNICIAN 04/06/19 06:05 Neutrophils (Manual) Not Reportable 04/06/19 06:05 Sodium 144 mEq/L (136-145) 04/06/19 06:05 Potassium 3.1 mEq/L (3.5-5.1) L 04/06/19 06:05 Chloride 111 mEq/L (98-107) H 04/06/19 06:05 Carbon Dioxide 22.7 mEq/L (21.0-31.0) 04/06/19 06:05 Anion Gap 13.4 (7.0-16.0) 04/06/19 06:05 BUN 12 mg/dL (7-25) 04/06/19 06:05 Creatinine 0.8 mg/dL (0.7-1.3) 04/06/19 06:05 Est GFR ( Amer) TNP 04/06/19 06:05 Est GFR (Non-Af Amer) TNP 04/06/19 06:05 BUN/Creatinine Ratio 15.0 04/06/19 06:05 Glucose 161 mg/dL (70-105) H 04/06/19 06:05 POC Glucose 149 MG/DL (70 - 105) H 04/06/19 06:33 Calcium 8.4 mg/dL (8.6-10.3) L 04/06/19 06:05 - Physical Exam Vitals and I&O: Vital Signs Temp 97.1 F 04/06/19 07:11 Pulse 55 04/06/19 09:04 Resp 19 04/06/19 07:11 BP 155/77 04/06/19 09:04 Pulse Ox 100 04/06/19 07:11 Intake & Output 04/05/19 04/06/19 04/06/19 18:59 06:59 18:59 Intake Total 360 971.667 200 Balance 360 971.667 200 Weight (lbs) 160 lb 160 lb 160 lb Intake: Intake, IV Amount 871.667 D5-0.45NS 1,000 ml @ 50 871.667 mls/hr IV .Q20H [facility] Rx#: [id number] Oral 360 100 200 Other: # Voids 0 3 1 # Bowel Movements 0 0 Weight Source Bedscale Bedscale Bedscale Active Medications: Current Medications Acetaminophen (Tylenol) 650 mg PO Q4HR PRN PRN Reason: MILD PAIN Stop: 06/03/19 18:08 Al Hydrox/Mg Hydrox/Simethicone (Maalox) 30 ml PO Q4HR PRN PRN Reason: GI DISTRESS Stop: 06/03/19 18:08 Amlodipine Besylate (Norvasc) 10 mg PO DAILY [facility] Stop: 06/04/19 08:59 Last Admin: 04/06/19 09:04 Dose: 10 mg Aspirin (Ecotrin) 81 mg PO DAILY [facility] Stop: 06/04/19 08:59 Last Admin: 04/06/19 09:03 Dose: 81 mg Atorvastatin Calcium (Lipitor) 40 mg PO HS [facility]; Protocol Stop: 06/03/19 20:59 Last Admin: 04/05/19 20:57 Dose: 40 mg Clopidogrel Bisulfate (Plavix) 75 mg PO DAILY [facility] Stop: 06/04/19 08:59 Last Admin: 04/06/19 09:03 Dose: 75 mg Dextrose (D50w) 50 ml IVP PRN PRN PRN Reason: Blood Glucose less than 70 Stop: 06/03/19 19:35 Dextrose (Glutose 40%) 18.75 gm PO PRN PRN PRN Reason: Blood Glucose less than 70 Stop: 06/03/19 19:35 Docusate Sodium (Colace) 100 mg PO BID [facility] Stop: 06/04/19 08:59 Last Admin: 04/06/19 09:04 Dose: 100 mg Hydromorphone HCl (Dilaudid) 2 mg PO Q4HR PRN PRN Reason: Severe Pain Stop: 06/03/19 19:48 Last Admin: 04/05/19 00:14 Dose: 2 mg Dextrose/Sodium Chloride (D5-0.45ns) 1,000 mls @ 50 mls/hr IV .Q20H [facility] Stop: 06/04/19 10:45 Last Admin: 04/06/19 04:26 Dose: 50 mls/hr Sodium Chloride (Nacl 0.45%) 500 mls @ 0 mls/hr IV .Q0M [facility] Stop: 06/04/19 17:41 Last Admin: 04/05/19 17:47 Dose: 500 mls/hr Insulin Human Lispro (Humalog Insulin Sliding Scale) 0 units SUBQ Q6HR [facility]; Protocol Stop: 06/03/19 19:44 Last Admin: 04/06/19 06:51 Dose: Not Given Mupirocin (Bactroban Oint) 1 appl NS BID [facility] Stop: 04/09/19 17:01 Last Admin: 04/06/19 09:03 Dose: 1 appl General: weak, demented, obese HEENT: NC/AT Neck: Supple, No JVD Lungs: CTAB Cardiovascular: other (irregular- afib, paced on monitor) Abdomen: soft, non-tender Extremities: clear, other (Left hand swelling) Internal Medicine Assmt/Plan - Assessment Assessment: Generalized weakness Possible dementia HTN Afib Hyperlipidemia CAD Left hand swelling - Plan Plan: Continue plan of care f/u US LE for left hand swelling Continue to monitor Labs, VS, strict I/O Keep on monitor/tele Fall Precaution Aspiration precaution Continue to collaborate with consulting specialist and interdisciplinary team Replete K (3.1)
[2019-04-06] MEDS ORDERED: KCL 20mEq/100mL Premix 20 MEQ/100 ML PIGGYBACK IV ONE (10:11)
[2019-04-07] MEDS: INSULIN LISPRO SLIDING SCALE 100 UNITS/ML UNIT SUBQ SCH ×4 (00:30→12:01)
[2019-04-07] MEDS: D5-0.45NS 1,000 ML IV SCH (05:44)
--- NOTE | 2019-04-07 08:15 | Diagnostic Imaging Report ---
Exam: Color Doppler ultrasound examination deep venous circulation left upper extremity. HISTORY: Swollen left arm Findings: Real-time ultrasound examination of left upper extremity deep venous circulation was performed utilizing color Doppler technique. The study demonstrates normal compressibility augmentation of deep venous system throughout. IMPRESSION: No evidence for deep venous thrombosis left upper extremity deep venous circulation.
[2019-04-07] MEDS: Apixaban 5 MG TABLET PO SCH ×2 (08:54→17:08)
--- NOTE | 2019-04-07 10:51 | Internal Medicine Prog Note ---
Internal Medicine Subjective - Subjective Service Date: 04/07/19 Patient seen and examined:: with staff Patient is:: awake, verbal Patient Complaints of:: other (Generalized weakness.) Per staff patient has:: no adverse event, no episodes of fall Internal Medicine Objective - Results Result Diagrams: 04/06/19 06:05 04/06/19 06:05 Recent Labs: Laboratory Last Values WBC 8.8 Th/cmm (4.8-10.8) 04/06/19 06:05 RBC 4.59 Mil/cmm (3.80-5.80) 04/06/19 06:05 Hgb 11.9 gm/dL (12-16) L 04/06/19 06:05 Hct 37.0 % (41.0-60) L 04/06/19 06:05 MCV 80.5 fl (80-99) 04/06/19 06:05 MCH 25.9 pg (27.0-31.0) L 04/06/19 06:05 MCHC Differential 32.2 pg (28.0-36.0) 04/06/19 06:05 RDW 16.2 % (11.5-20.0) 04/06/19 06:05 Plt Count 273 Th/cmm (150-400) 04/06/19 06:05 MPV 7.9 fl 04/06/19 06:05 Add Manual Diff TIMBER FELLER 04/06/19 06:05 Neutrophils % TIMBER FELLER 04/06/19 06:05 Lymphocytes % TIMBER FELLER 04/06/19 06:05 Monocytes % TIMBER FELLER 04/06/19 06:05 Eosinophils % TIMBER FELLER 04/06/19 06:05 Basophils % TIMBER FELLER 04/06/19 06:05 Neutrophils (Manual) Not Reportable 04/06/19 06:05 Sodium 144 mEq/L (136-145) 04/06/19 06:05 Potassium 3.1 mEq/L (3.5-5.1) L 04/06/19 06:05 Chloride 111 mEq/L (98-107) H 04/06/19 06:05 Carbon Dioxide 22.7 mEq/L (21.0-31.0) 04/06/19 06:05 Anion Gap 13.4 (7.0-16.0) 04/06/19 06:05 BUN 12 mg/dL (7-25) 04/06/19 06:05 Creatinine 0.8 mg/dL (0.7-1.3) 04/06/19 06:05 Est GFR ( Amer) TNP 04/06/19 06:05 Est GFR (Non-Af Amer) TNP 04/06/19 06:05 BUN/Creatinine Ratio 15.0 04/06/19 06:05 Glucose 161 mg/dL (70-105) H 04/06/19 06:05 POC Glucose 157 MG/DL (70 - 105) H 04/06/19 18:45 Calcium 8.4 mg/dL (8.6-10.3) L 04/06/19 06:05 - Physical Exam Vitals and I&O: Vital Signs Temp 97.2 F 04/07/19 08:00 Pulse 55 04/07/19 08:54 Resp 20 04/07/19 08:00 BP 166/72 04/07/19 08:54 Pulse Ox 94 04/07/19 08:00 Intake & Output 04/06/19 04/07/19 04/07/19 18:59 06:59 18:59 Intake Total 600 240 Balance 600 240 Weight (lbs) 72.575 kg 72.575 kg Intake: Oral 600 240 Other: # Voids 3 3 # Bowel Movements 0 0 Weight Source Bedscale Bedscale Active Medications: Current Medications Acetaminophen (Tylenol) 650 mg PO Q4HR PRN PRN Reason: MILD PAIN Stop: 06/03/19 18:08 Last Admin: 04/06/19 11:02 Dose: 650 mg Al Hydrox/Mg Hydrox/Simethicone (Maalox) 30 ml PO Q4HR PRN PRN Reason: GI DISTRESS Stop: 06/03/19 18:08 Amlodipine Besylate (Norvasc) 10 mg PO DAILY [facility] Stop: 06/04/19 08:59 Last Admin: 04/07/19 08:54 Dose: 10 mg Aspirin (Ecotrin) 81 mg PO DAILY [facility] Stop: 06/04/19 08:59 Last Admin: 04/07/19 08:54 Dose: 81 mg Atorvastatin Calcium (Lipitor) 40 mg PO HS [facility]; Protocol Stop: 06/03/19 20:59 Last Admin: 04/06/19 20:56 Dose: 40 mg Clopidogrel Bisulfate (Plavix) 75 mg PO DAILY [facility] Stop: 06/04/19 08:59 Last Admin: 04/07/19 08:54 Dose: 75 mg Dextrose (D50w) 50 ml IVP PRN PRN PRN Reason: Blood Glucose less than 70 Stop: 06/03/19 19:35 Dextrose (Glutose 40%) 18.75 gm PO PRN PRN PRN Reason: Blood Glucose less than 70 Stop: 06/03/19 19:35 Docusate Sodium (Colace) 100 mg PO BID [facility] Stop: 06/04/19 08:59 Last Admin: 04/07/19 08:54 Dose: 100 mg Hydromorphone HCl (Dilaudid) 2 mg PO Q4HR PRN PRN Reason: Severe Pain Stop: 06/03/19 19:48 Last Admin: 04/06/19 16:45 Dose: 2 mg Dextrose/Sodium Chloride (D5-0.45ns) 1,000 mls @ 50 mls/hr IV .Q20H [facility] Stop: 06/04/19 10:45 Last Admin: 04/07/19 05:44 Dose: Not Given Sodium Chloride (Nacl 0.45%) 500 mls @ 0 mls/hr IV .Q0M [facility] Stop: 06/04/19 17:41 Last Admin: 04/05/19 17:47 Dose: 500 mls/hr Insulin Human Lispro (Humalog Insulin Sliding Scale) 0 units SUBQ Q6HR [facility]; Protocol Stop: 06/03/19 19:44 Last Admin: 04/07/19 08:44 Dose: Not Given Mupirocin (Bactroban Oint) 1 appl NS BID [facility] Stop: 04/09/19 17:01 Last Admin: 04/07/19 08:54 Dose: 1 appl Quetiapine Fumarate (Seroquel) 25 mg PO Q12H PRN; Protocol PRN Reason: Agitation Stop: 06/06/19 08:59 Physical Exam: 83 y/o male patient was admitted with ongoing left-sided weakness. General: weak, demented, obese HEENT: NC/AT Neck: Supple, No JVD Lungs: CTAB Cardiovascular: other (irregular- afib, paced on monitor) Abdomen: soft, non-tender Extremities: clear, other (Left hand swelling) Neurological: no change Internal Medicine Assmt/Plan - Assessment Assessment: Generalized weakness. Possible Dementia. Htn. Atrial fibrilation. Hyperlipidimia. CAD. - Plan Plan: Continuation of care. Monitor Labs. Continue present meds as directed. Monitor vitals, continue B/P meds. Monitor Diet/Nutritional support. Psych management per Psych. Pain Management. Physical therapy. Occupational therapy. Safety precaution. Supportive care. Fall precaution, frequent nursing rounds, and as needed restraints to prevent fall. Continue collaborating with consulting specialists, case management and nursing team. Will Monitor patient and continue current treatment plan as ordered. Nutritional Asmnt/Malnutr-PDOC - Dietary Evaluation Malnutrition Findings (Please click <Entered> for more info): see orders.
--- NOTE | 2019-04-07 18:56 | Internal Medicine Prog Note ---
Internal Medicine Subjective - Subjective Service Date: 04/07/19 Patient is:: awake, verbal Patient Complaints of:: other (Generalized weakness.) Per staff patient has:: no adverse event, no episodes of fall Internal Medicine Objective - Results Result Diagrams: 04/06/19 06:05 04/06/19 06:05 Recent Labs: Laboratory Last Values WBC 8.8 Th/cmm (4.8-10.8) 04/06/19 06:05 RBC 4.59 Mil/cmm (3.80-5.80) 04/06/19 06:05 Hgb 11.9 gm/dL (12-16) L 04/06/19 06:05 Hct 37.0 % (41.0-60) L 04/06/19 06:05 MCV 80.5 fl (80-99) 04/06/19 06:05 MCH 25.9 pg (27.0-31.0) L 04/06/19 06:05 MCHC Differential 32.2 pg (28.0-36.0) 04/06/19 06:05 RDW 16.2 % (11.5-20.0) 04/06/19 06:05 Plt Count 273 Th/cmm (150-400) 04/06/19 06:05 MPV 7.9 fl 04/06/19 06:05 Add Manual Diff IT PROGRAMMER 04/06/19 06:05 Neutrophils % IT PROGRAMMER 04/06/19 06:05 Lymphocytes % IT PROGRAMMER 04/06/19 06:05 Monocytes % IT PROGRAMMER 04/06/19 06:05 Eosinophils % IT PROGRAMMER 04/06/19 06:05 Basophils % IT PROGRAMMER 04/06/19 06:05 Neutrophils (Manual) Not Reportable 04/06/19 06:05 Sodium 144 mEq/L (136-145) 04/06/19 06:05 Potassium 3.1 mEq/L (3.5-5.1) L 04/06/19 06:05 Chloride 111 mEq/L (98-107) H 04/06/19 06:05 Carbon Dioxide 22.7 mEq/L (21.0-31.0) 04/06/19 06:05 Anion Gap 13.4 (7.0-16.0) 04/06/19 06:05 BUN 12 mg/dL (7-25) 04/06/19 06:05 Creatinine 0.8 mg/dL (0.7-1.3) 04/06/19 06:05 Est GFR ( Amer) TNP 04/06/19 06:05 Est GFR (Non-Af Amer) TNP 04/06/19 06:05 BUN/Creatinine Ratio 15.0 04/06/19 06:05 Glucose 161 mg/dL (70-105) H 04/06/19 06:05 POC Glucose 188 MG/DL (70 - 105) H 04/07/19 11:55 Calcium 8.4 mg/dL (8.6-10.3) L 04/06/19 06:05 - Physical Exam Vitals and I&O: Vital Signs Temp 97.3 F 04/07/19 16:00 Pulse 62 04/07/19 16:00 Resp 20 04/07/19 16:00 BP 150/58 04/07/19 16:00 Pulse Ox 99 04/07/19 16:00 Intake & Output 04/06/19 04/07/19 04/07/19 18:59 06:59 18:59 Intake Total 600 240 600 Balance 600 240 600 Weight (lbs) 160 lb 160 lb 160 lb Intake: Oral 600 240 600 Other: # Voids 3 3 4 # Bowel Movements 0 0 0 Weight Source Bedscale Bedscale Bedscale Active Medications: Current Medications Acetaminophen (Tylenol) 650 mg PO Q4HR PRN PRN Reason: MILD PAIN Stop: 06/03/19 18:08 Last Admin: 04/06/19 11:02 Dose: 650 mg Al Hydrox/Mg Hydrox/Simethicone (Maalox) 30 ml PO Q4HR PRN PRN Reason: GI DISTRESS Stop: 06/03/19 18:08 Amlodipine Besylate (Norvasc) 10 mg PO DAILY [facility] Stop: 06/04/19 08:59 Last Admin: 04/07/19 08:54 Dose: 10 mg Aspirin (Ecotrin) 81 mg PO DAILY [facility] Stop: 06/04/19 08:59 Last Admin: 04/07/19 08:54 Dose: 81 mg Atorvastatin Calcium (Lipitor) 40 mg PO HS [facility]; Protocol Stop: 06/03/19 20:59 Last Admin: 04/06/19 20:56 Dose: 40 mg Clindamycin HCl (Cleocin Hcl) 150 mg PO Q8HR [facility] Stop: 06/06/19 12:59 Last Admin: 04/07/19 17:08 Dose: 150 mg Clopidogrel Bisulfate (Plavix) 75 mg PO DAILY [facility] Stop: 06/04/19 08:59 Last Admin: 04/07/19 08:54 Dose: 75 mg Dextrose (D50w) 50 ml IVP PRN PRN PRN Reason: Blood Glucose less than 70 Stop: 06/03/19 19:35 Dextrose (Glutose 40%) 18.75 gm PO PRN PRN PRN Reason: Blood Glucose less than 70 Stop: 06/03/19 19:35 Docusate Sodium (Colace) 100 mg PO BID [facility] Stop: 06/04/19 08:59 Last Admin: 04/07/19 17:06 Dose: Not Given Hydromorphone HCl (Dilaudid) 2 mg PO Q4HR PRN PRN Reason: Severe Pain Stop: 06/03/19 19:48 Last Admin: 04/06/19 16:45 Dose: 2 mg Dextrose/Sodium Chloride (D5-0.45ns) 1,000 mls @ 50 mls/hr IV .Q20H [facility] Stop: 06/04/19 10:45 Last Admin: 04/07/19 05:44 Dose: Not Given Sodium Chloride (Nacl 0.45%) 500 mls @ 0 mls/hr IV .Q0M [facility] Stop: 06/04/19 17:41 Last Admin: 04/05/19 17:47 Dose: 500 mls/hr Insulin Human Lispro (Humalog Insulin Sliding Scale) 0 units SUBQ Q6HR [facility]; Protocol Stop: 06/03/19 19:44 Last Admin: 04/07/19 12:01 Dose: 2 units Mupirocin (Bactroban Oint) 1 appl NS BID [facility] Stop: 04/09/19 17:01 Last Admin: 04/07/19 17:08 Dose: 1 appl Quetiapine Fumarate (Seroquel) 25 mg PO Q12H PRN; Protocol PRN Reason: Agitation Stop: 06/06/19 08:59 General: weak, demented, obese HEENT: NC/AT Neck: Supple, No JVD Lungs: CTAB Cardiovascular: other (irregular- afib, paced on monitor) Abdomen: soft, non-tender Extremities: clear, other (Left hand swelling) Neurological: no change Internal Medicine Assmt/Plan - Assessment Assessment: Generalized weakness Possible dementia HTN Afib Hyperlipidemia CAD Left hand swelling - Plan Plan: Continue plan of care f/u US LE for left hand swelling Continue to monitor Labs, VS, strict I/O Keep on monitor/tele Fall Precaution Aspiration precaution Continue to collaborate with consulting specialist and interdisciplinary team Replete K (3.1)
--- NOTE | 2019-04-07 23:17 | Progress Notes ---
DATE: 04/07/2019 SUBJECTIVE: Chart was reviewed and the patient interviewed. Also discussed the patient's condition with the staff and reviewed records and labs. The patient is still confused. The patient also is still unable to follow directions and needs prompt instructions to follow nurses' directions. The patient also still has episodes of agitation and irritability, but seems to be less than before. Otherwise, the patient is compliant with taking medications and no side effects of medications. ASSESSMENT: The patient is still confused and considered to be gravely disabled. TREATMENT PLAN: We will continue to monitor his behavior and his condition closely. Also, we will place the patient on 5250 hold for grave disability. Also, continue to work on his irritable mood and also will start the patient on Seroquel on a p.r.n. basis and will continue to follow up. JOB# [id number]
--- NOTE | 2019-04-07 23:23 | Consultation ---
DATE OF CONSULTATION: 04/07/2019 INFECTIOUS DISEASE CONSULTATION REFERRING PHYSICIAN: Dr. Evans. REASON FOR CONSULTATION: Left forearm cellulitis. HISTORY OF PRESENT ILLNESS: The patient is an 83-year-old male with a past medical history of psych disorder, dementia, CVA, hypertension, cardiomegaly, dyslipidemia, right arm tremor, CVA with left-sided weakness, was brought from [facility] for left-sided weakness. The patient also found to have some open ulcer on right hand proximally and laterally and redness of left forearm next to the old IV site. The patient is afebrile and WBC count was 11,000 and normal. ID consult was called for antibiotic management. Antibiotic dasilva, the patient is not taking any antibiotic. PAST MEDICAL HISTORY: Includes as mentioned above, hypertension, hyperlipidemia, CVA with left-sided weakness. SOCIAL HISTORY: The patient lives at [facility]. No history of smoking, alcohol or drug use. FAMILY HISTORY: Not available. ALLERGIES: THE PATIENT IS ALLERGIC TO PENICILLIN, CODEINE, LACTOSE AND MORPHINE. MEDICATIONS: As per medication reconciliation sheet. REVIEW OF SYSTEMS: The patient is a poor historian. PHYSICAL EXAMINATION: CURRENT VITAL SIGNS: Shows temperature is 97.2, pulse 55, respirations 20, blood pressure 166/72, oxygen saturation 94%. GENERAL: The patient is comfortable lying in the bed, not in acute distress. HEENT: Head is normocephalic, atraumatic. Oral cavity moist, pink tongue. NECK: Supple, no JVD, no carotid bruit. Trachea in midline. CHEST: Bilateral vesicular sounds. No crackles or wheezing. HEART: S1, S2 within normal limits. Regular rhythm. No murmur, no gallop. ABDOMEN: Soft, nontender, nondistended. Bowel sounds present. EXTREMITIES: No cyanosis, no clubbing, no edema. As mentioned, left hand has small wound proximally on the dorsal aspect. There is no pus, no discharge. Dry scabbed. Left forearm, the patient has erythema proximal to old IV site and it is tender. IMPRESSION: 1. Left forearm cellulitis. 2. Right hand wound. No sign of infection. 3. Dementia. 4. Hyperlipidemia. 5. Hypertension. 6. Cerebrovascular accident with left-sided weakness. RECOMMENDATIONS: We will start the patient on clindamycin and go from there. [facility]# [id number] MTDD
[2019-04-08] MEDS: INSULIN LISPRO SLIDING SCALE 100 UNITS/ML UNIT SUBQ SCH ×5 (00:36→21:40)
[2019-04-08 05:20] LABS: % EOSINOPHILS 5.3 % (0.0-5.0); % LYMPHOCYTES 13.7 % (20.0-50.0); % MONOCYTES 8.8 % (2.0-10.0); % NEUTROPHILS 72.2 % (40.0-80.0); EOSINOPHILE ABSOLUTE 0.5 Th/cmm (0.1-0.4); HEMATOCRIT 36.8 % (41.0-60); HEMOGLOBIN 12.1 gm/dL (12-16); LYMPHOCYTE ABSOLUTE 1.4 Th/cmm (1.5-3.0); MEAN CELL VOLUME 79.4 fl (80-99); MEAN CORPUSCULAR HEMOGLOBIN 26.2 pg (27.0-31.0); MONOCYTE ABSOLUTE 0.9 Th/cmm (0.3-1.0); NEUTROPHILE ABSOLUTE 7.3 Th/cmm (1.8-8.0); PLATELET COUNT 314 Th/cmm (150-400); RED BLOOD COUNT 4.64 Mil/cmm (3.80-5.80); RED CELL DISTRIBUTION WIDTH 16.7 % (11.5-20.0); WHITE BLOOD COUNT 10.1 Th/cmm (4.8-10.8)
[2019-04-08 05:27] LABS: ANION GAP 12.7 (7.0-16.0); BUN - UREA NITROGEN 10 mg/dL (7-25); CARBON DIOXIDE 25.4 mEq/L (21.0-31.0); CHLORIDE 113 mEq/L (98-107); CREATININE - SERUM 0.8 mg/dL (0.7-1.3); GLUCOSE 115 mg/dL (70-105); POTASSIUM SERUM 4.1 mEq/L (3.5-5.1); SODIUM SERUM 147 mEq/L (136-145)
--- NOTE | 2019-04-08 06:28 | Progress Notes ---
DATE: SUBJECTIVE: Chart was reviewed and the patient interviewed. Also discussed the patient's condition with the staff and reviewed records and labs. The patient is still confused and is still easily irritable and agitated. Also, according to staff, the patient is still restless and still did not sleep most of last night. The patient also is interacting minimally and he is disheveled and restless. He is uncooperative with the staff when they tried to work on his ADLs and he gets agitated. ASSESSMENT: The patient is still agitated and is still aggressive. TREATMENT PLAN: We will continue to monitor his behavior and his condition closely. Also, we will increase Seroquel to be given in a dose of 12.5 mg 3 times a day. Also, we will continue to work on behavioral modifications and followup. JOB# [id number]
--- NOTE | 2019-04-08 08:11 | Internal Medicine Prog Note ---
Internal Medicine Subjective - Subjective Service Date: 04/08/19 Patient is:: awake, verbal Patient Complaints of:: other (Generalized weakness.) Per staff patient has:: no adverse event, no episodes of fall Internal Medicine Objective - Results Result Diagrams: 04/08/19 04:15 04/08/19 04:15 Recent Labs: Laboratory Last Values WBC 10.1 Th/cmm (4.8-10.8) 04/08/19 04:15 RBC 4.64 Mil/cmm (3.80-5.80) 04/08/19 04:15 Hgb 12.1 gm/dL (12-16) 04/08/19 04:15 Hct 36.8 % (41.0-60) L 04/08/19 04:15 MCV 79.4 fl (80-99) L 04/08/19 04:15 MCH 26.2 pg (27.0-31.0) L 04/08/19 04:15 MCHC Differential 33.0 pg (28.0-36.0) 04/08/19 04:15 RDW 16.7 % (11.5-20.0) 04/08/19 04:15 Plt Count 314 Th/cmm (150-400) 04/08/19 04:15 MPV 8.4 fl 04/08/19 04:15 Add Manual Diff GRADES 9 THRU 12 VISITING TEACHER 04/06/19 06:05 Neutrophils % 72.2 % (40.0-80.0) 04/08/19 04:15 Lymphocytes % 13.7 % (20.0-50.0) L 04/08/19 04:15 Monocytes % 8.8 % (2.0-10.0) 04/08/19 04:15 Eosinophils % 5.3 % (0.0-5.0) H 04/08/19 04:15 Basophils % 0.0 % (0.0-2.0) 04/08/19 04:15 Neutrophils (Manual) Not Reportable 04/06/19 06:05 Sodium 147 mEq/L (136-145) H 04/08/19 04:15 Potassium 4.1 mEq/L (3.5-5.1) 04/08/19 04:15 Chloride 113 mEq/L (98-107) H 04/08/19 04:15 Carbon Dioxide 25.4 mEq/L (21.0-31.0) 04/08/19 04:15 Anion Gap 12.7 (7.0-16.0) 04/08/19 04:15 BUN 10 mg/dL (7-25) 04/08/19 04:15 Creatinine 0.8 mg/dL (0.7-1.3) 04/08/19 04:15 Est GFR ( Amer) TNP 04/08/19 04:15 Est GFR (Non-Af Amer) TNP 04/08/19 04:15 BUN/Creatinine Ratio 12.5 04/08/19 04:15 Glucose 115 mg/dL (70-105) H 04/08/19 04:15 POC Glucose 129 MG/DL (70 - 105) H 04/08/19 05:24 Calcium 9.0 mg/dL (8.6-10.3) 04/08/19 04:15 - Physical Exam Vitals and I&O: Vital Signs Temp 97.8 F 04/08/19 00:00 Pulse 55 04/08/19 00:00 Resp 20 04/08/19 00:00 BP 151/65 04/08/19 00:00 Pulse Ox 100 04/08/19 00:00 Intake & Output 04/07/19 04/08/19 04/08/19 18:59 06:59 18:59 Intake Total 600 Balance 600 Weight (lbs) 160 lb 160 lb Intake: Oral 600 Other: # Voids 4 2 # Bowel Movements 0 Weight Source Bedscale Bedscale Active Medications: Current Medications Acetaminophen (Tylenol) 650 mg PO Q4HR PRN PRN Reason: MILD PAIN Stop: 06/03/19 18:08 Last Admin: 04/06/19 11:02 Dose: 650 mg Al Hydrox/Mg Hydrox/Simethicone (Maalox) 30 ml PO Q4HR PRN PRN Reason: GI DISTRESS Stop: 06/03/19 18:08 Amlodipine Besylate (Norvasc) 10 mg PO DAILY [facility] Stop: 06/04/19 08:59 Last Admin: 04/07/19 08:54 Dose: 10 mg Aspirin (Ecotrin) 81 mg PO DAILY [facility] Stop: 06/04/19 08:59 Last Admin: 04/07/19 08:54 Dose: 81 mg Atorvastatin Calcium (Lipitor) 40 mg PO HS [facility]; Protocol Stop: 06/03/19 20:59 Last Admin: 04/07/19 20:23 Dose: 40 mg Clindamycin HCl (Cleocin Hcl) 150 mg PO Q8HR [facility] Stop: 06/06/19 12:59 Last Admin: 04/08/19 05:25 Dose: 150 mg Clopidogrel Bisulfate (Plavix) 75 mg PO DAILY [facility] Stop: 06/04/19 08:59 Last Admin: 04/07/19 08:54 Dose: 75 mg Dextrose (D50w) 50 ml IVP PRN PRN PRN Reason: Blood Glucose less than 70 Stop: 06/03/19 19:35 Dextrose (Glutose 40%) 18.75 gm PO PRN PRN PRN Reason: Blood Glucose less than 70 Stop: 06/03/19 19:35 Docusate Sodium (Colace) 100 mg PO BID [facility] Stop: 06/04/19 08:59 Last Admin: 04/07/19 17:06 Dose: Not Given Hydromorphone HCl (Dilaudid) 2 mg PO Q4HR PRN PRN Reason: Severe Pain Stop: 06/03/19 19:48 Last Admin: 04/06/19 16:45 Dose: 2 mg Dextrose/Sodium Chloride (D5-0.45ns) 1,000 mls @ 50 mls/hr IV .Q20H [facility] Stop: 06/04/19 10:45 Last Admin: 04/07/19 05:44 Dose: Not Given Sodium Chloride (Nacl 0.45%) 500 mls @ 0 mls/hr IV .Q0M [facility] Stop: 06/04/19 17:41 Last Admin: 04/05/19 17:47 Dose: 500 mls/hr Insulin Human Lispro (Humalog Insulin Sliding Scale) 0 units SUBQ Q6HR [facility]; Protocol Stop: 06/03/19 19:44 Last Admin: 04/08/19 05:26 Dose: Not Given Mupirocin (Bactroban Oint) 1 appl NS BID [facility] Stop: 04/09/19 17:01 Last Admin: 04/07/19 17:08 Dose: 1 appl Quetiapine Fumarate (Seroquel) 12.5 mg PO TID [facility]; Protocol Stop: 06/07/19 08:59 General: weak, demented, obese HEENT: NC/AT Neck: Supple, No JVD Lungs: CTAB Cardiovascular: other (irregular- afib, paced on monitor) Abdomen: soft, non-tender Extremities: clear, other (Left hand swelling) Neurological: no change Internal Medicine Assmt/Plan - Assessment Assessment: Generalized weakness Possible dementia HTN Afib Hyperlipidemia CAD Left hand swelling - Plan Plan: Continue plan of care f/u US LE for left hand swelling Continue to monitor Labs, VS, strict I/O Keep on monitor/tele Fall Precaution Aspiration precaution Continue to collaborate with consulting specialist and interdisciplinary team Replete K (3.1)
[2019-04-08] MEDS: Apixaban 5 MG TABLET PO SCH ×2 (08:48→16:19)
--- NOTE | 2019-04-08 14:36 | Infectious Disease Prog Note ---
Infectious Disease Subjective - Review of Systems Service Date: 04/08/19 Infectious Disease Objective - Results Result Diagrams: 04/08/19 04:15 04/08/19 04:15 Recent Labs: Laboratory Last Values WBC 10.1 Th/cmm (4.8-10.8) 04/08/19 04:15 RBC 4.64 Mil/cmm (3.80-5.80) 04/08/19 04:15 Hgb 12.1 gm/dL (12-16) 04/08/19 04:15 Hct 36.8 % (41.0-60) L 04/08/19 04:15 MCV 79.4 fl (80-99) L 04/08/19 04:15 MCH 26.2 pg (27.0-31.0) L 04/08/19 04:15 MCHC Differential 33.0 pg (28.0-36.0) 04/08/19 04:15 RDW 16.7 % (11.5-20.0) 04/08/19 04:15 Plt Count 314 Th/cmm (150-400) 04/08/19 04:15 MPV 8.4 fl 04/08/19 04:15 Add Manual Diff GENERAL PASSENGER AGENT 04/06/19 06:05 Neutrophils % 72.2 % (40.0-80.0) 04/08/19 04:15 Lymphocytes % 13.7 % (20.0-50.0) L 04/08/19 04:15 Monocytes % 8.8 % (2.0-10.0) 04/08/19 04:15 Eosinophils % 5.3 % (0.0-5.0) H 04/08/19 04:15 Basophils % 0.0 % (0.0-2.0) 04/08/19 04:15 Neutrophils (Manual) Not Reportable 04/06/19 06:05 Sodium 147 mEq/L (136-145) H 04/08/19 04:15 Potassium 4.1 mEq/L (3.5-5.1) 04/08/19 04:15 Chloride 113 mEq/L (98-107) H 04/08/19 04:15 Carbon Dioxide 25.4 mEq/L (21.0-31.0) 04/08/19 04:15 Anion Gap 12.7 (7.0-16.0) 04/08/19 04:15 BUN 10 mg/dL (7-25) 04/08/19 04:15 Creatinine 0.8 mg/dL (0.7-1.3) 04/08/19 04:15 Est GFR ( Amer) TNP 04/08/19 04:15 Est GFR (Non-Af Amer) TNP 04/08/19 04:15 BUN/Creatinine Ratio 12.5 04/08/19 04:15 Glucose 115 mg/dL (70-105) H 04/08/19 04:15 POC Glucose 142 MG/DL (70 - 105) H 04/08/19 11:53 Calcium 9.0 mg/dL (8.6-10.3) 04/08/19 04:15 - Physical Exam Vitals and I&O: Vital Signs Temp 98.3 F 04/08/19 12:00 Pulse 60 04/08/19 12:00 Resp 18 04/08/19 12:00 BP 141/63 04/08/19 12:00 Pulse Ox 100 04/08/19 12:00 Intake & Output 04/07/19 04/08/19 04/08/19 18:59 06:59 18:59 Intake Total 600 Balance 600 Weight (lbs) 72.575 kg 72.575 kg Intake: Oral 600 Other: # Voids 4 2 # Bowel Movements 0 Weight Source Bedscale Bedscale Active Medications: Current Medications Acetaminophen (Tylenol) 650 mg PO Q4HR PRN PRN Reason: MILD PAIN Stop: 06/03/19 18:08 Last Admin: 04/06/19 11:02 Dose: 650 mg Al Hydrox/Mg Hydrox/Simethicone (Maalox) 30 ml PO Q4HR PRN PRN Reason: GI DISTRESS Stop: 06/03/19 18:08 Amlodipine Besylate (Norvasc) 10 mg PO DAILY [facility] Stop: 06/04/19 08:59 Last Admin: 04/08/19 08:50 Dose: 10 mg Aspirin (Ecotrin) 81 mg PO DAILY [facility] Stop: 06/04/19 08:59 Last Admin: 04/08/19 08:48 Dose: 81 mg Atorvastatin Calcium (Lipitor) 40 mg PO HS [facility]; Protocol Stop: 06/03/19 20:59 Last Admin: 04/07/19 20:23 Dose: 40 mg Clindamycin HCl (Cleocin Hcl) 150 mg PO Q8HR [facility] Stop: 06/06/19 12:59 Last Admin: 04/08/19 13:24 Dose: 150 mg Clopidogrel Bisulfate (Plavix) 75 mg PO DAILY [facility] Stop: 06/04/19 08:59 Last Admin: 04/08/19 08:48 Dose: 75 mg Dextrose (D50w) 50 ml IVP PRN PRN PRN Reason: Blood Glucose less than 70 Stop: 06/03/19 19:35 Dextrose (Glutose 40%) 18.75 gm PO PRN PRN PRN Reason: Blood Glucose less than 70 Stop: 06/03/19 19:35 Docusate Sodium (Colace) 100 mg PO BID [facility] Stop: 06/04/19 08:59 Last Admin: 04/08/19 08:48 Dose: 100 mg Hydromorphone HCl (Dilaudid) 2 mg PO Q4HR PRN PRN Reason: Severe Pain Stop: 06/03/19 19:48 Last Admin: 04/06/19 16:45 Dose: 2 mg Dextrose/Sodium Chloride (D5-0.45ns) 1,000 mls @ 50 mls/hr IV .Q20H [facility] Stop: 06/04/19 10:45 Last Admin: 04/07/19 05:44 Dose: Not Given Sodium Chloride (Nacl 0.45%) 500 mls @ 0 mls/hr IV .Q0M [facility] Stop: 06/04/19 17:41 Last Admin: 04/05/19 17:47 Dose: 500 mls/hr Insulin Human Lispro (Humalog Insulin Sliding Scale) 0 units SUBQ Q6HR [facility]; Protocol Stop: 06/03/19 19:44 Last Admin: 04/08/19 11:56 Dose: Not Given Mupirocin (Bactroban Oint) 1 appl NS BID [facility] Stop: 04/09/19 17:01 Last Admin: 04/08/19 08:48 Dose: 1 appl Quetiapine Fumarate (Seroquel) 12.5 mg PO TID [facility]; Protocol Stop: 06/07/19 08:59 Last Admin: 04/08/19 13:25 Dose: 12.5 mg General: no acute distress, well developed, well nourished HEENT: atraumatic, normocephalic, PERRLA, EOMI Neck: supple, no thyromegaly Cardiovascular: S1S2, regular Lungs: clear to auscultation bilaterally Abdomen: soft, no tender, no distended, no mass, no rebound, no hepatomegaly Extremities: other (left forearm erythema has resolved.), no cyanosis, no clubbing, no edema Neurological: other (Confusaed.) Skin: intact Infectious Disease Assmt/Plan - Assessment Assessment: 1. Left forearm cellulitis. improving. 2. Right hand wound. No sign of infection. 3. Dementia. 4. Hyperlipidemia. 5. Hypertension. 6. Cerebrovascular accident with left-sided weakness. - Plan Plan: Continue clinda x 7 days.
--- NOTE | 2019-04-08 15:33 | Consultation ---
DATE OF CONSULTATION: 04/07/2019 NEUROLOGY CONSULTATION HISTORY OF PRESENT ILLNESS: An 83-year-old male transferred from the psychiatric unit, noted to have left-sided weakness. Mainly left arm, some left leg also. PAST MEDICAL HISTORY: 1. The patient had been admitted with underlying dementia and psychosis. 2. The patient has underlying history of atrial fibrillation. 3. Hyperlipidemia. 4. Coronary artery disease. 5. Hypertension. SOCIAL HISTORY: Does not smoke or drink. REVIEW OF SYSTEMS: The patient has no marked headache, no vertigo. The patient confused. Disoriented. No marked chest pain, no shortness of breath. No cough. No abdominal pain. SOCIAL HISTORY: In a halfway home. Now came from psychiatric unit. No alcohol or smoking. MEDICATIONS: Norvasc, Ecotrin 81, Lipitor 40 mg, Plavix, Dilaudid p.r.n. OBJECTIVE: VITAL SIGNS: Temperature 97.5, blood pressure 150/60, pulse is around 62. NECK: Supple. No neck bruits. HEART: Normal heart sounds. LUNGS: Clear. NEUROLOGIC: The patient is lying in bed. The patient is awake. He will answer questions. Gives me his name. Able to name simple objects, but does not know what day or month it is. Pupils react to light. Difficult to know if any field defect, but he will look at me on the left side also. The patient's left arm falls to the bed. He is able to lift the right arm okay. Left leg, he is actually able to lift it, but weaker than the right. Reflex about 1. INVESTIGATIONS: I do not have a CT scan of the head. There is a carotid Doppler, which shows ____ narrowing on the right side, which would be the site of the stroke. LABORATORY DATA: WBC 8.8, hemoglobin 11.9, platelet 273. Sodium okay, potassium 3.1. BUN and creatinine is okay. IMPRESSION: 1. Stroke, left-sided weakness, more in the arm than leg. Dysarthria. 2. Right carotid stenosis. 3. History of atrial fibrillation. 4. Dementia. 5. Psychosis. 6. Hypertension. 7. Coronary artery disease. PLAN: CAT scan of the head. CT angio of the neck. Continue with antiplatelet medications. JOB# [id number]
--- NOTE | 2019-04-08 20:39 | Progress Notes ---
DATE: 04/08/2019 SUBJECTIVE: The patient lying in bed. Awake, will talk. Staff tells me he is moving a little bit more. He gets physical therapy, performing still. He is not moving the left arm, he moves the left leg more. The patient has no seizures. MEDICATIONS: Norvasc, Ecotrin 81, atorvastatin, Plavix, Dilaudid. OBJECTIVE: VITAL SIGNS: Temperature 98.0, blood pressure 150/70, pulse is 62. NECK: Supple. No neck bruits. CARDIOVASCULAR: Normal heart sounds. LUNGS: Clear. NEUROLOGIC: The patient is awake. Confused. He will move the right arm quite well, not move the left arm very much. Legs will move them, but weaker on the left. INVESTIGATIONS: The patient had CT scan done of the head on 04/03/2019 and was compared with a CT done on 01/16/2019. They noted that the patient has area of encephalomalacia, right cerebral hemisphere due to old stroke. This could explain the patient's left-sided weakness. The carotid Doppler showed 50-70% stenosis. CT angio is pending. ASSESSMENT: 1. Stroke. 2. Left-sided weakness. 3. Carotid stenosis. 4. Psychosis. Schizophrenia. 5. Left forearm cellulitis. 6. Hypertension. PLAN: Continue with antiplatelet, antilipid medicine. Patient's CT angio of head and neck. JOB# [id number]
[2019-04-09] MEDS: INSULIN LISPRO SLIDING SCALE 100 UNITS/ML UNIT SUBQ SCH ×4 (08:22→22:11)
[2019-04-09] MEDS: Apixaban 5 MG TABLET PO SCH ×2 (09:00→16:04)
[2019-04-09] MEDS: D5-0.45NS 1,000 ML IV SCH (10:25)
[2019-04-09] MEDS ORDERED: IOHEXOL 350mgI/mL 150mL IV ONE (13:57)
--- NOTE | 2019-04-09 14:00 | Diagnostic Imaging Report ---
CT angiogram of the carotid arteries with intravenous contrast (CTA) HISTORY: Stroke, CVA Total DLP equals 340 CTDI equals 9.0 Following administration of intravenous contrast, axial sections were obtained from the aortic arch up through the lower brain. The exam demonstrates a normal caliber of the right common carotid artery. Mild focal calcified atherosclerotic plaque is noted at the origin of the right internal carotid artery. No significant narrowing or stenosis. There is a normal caliber of the left common carotid artery. Mild calcified plaque noted at the origin of the left internal carotid artery. No significant narrowing or stenosis. There is a diminished size of the left vertebral artery compared to the right. However, no focal narrowing/stenosis is seen. No abnormality seen in the region of the basilar artery. Incidentally noted are diffuse degenerative changes throughout the cervical spine. IMPRESSION: 1. Mild atherosclerotic changes at the origins of the internal carotid arteries bilaterally. No significant focal narrowing or stenosis is seen.
--- NOTE | 2019-04-09 19:35 | Progress Notes ---
DATE: 04/09/2019 SUBJECTIVE: Chart was reviewed and the patient interviewed. Also discussed the patient's condition with the staff and reviewed records and labs. The patient was sedated when he was taking the Seroquel on a regular basis and Seroquel changed to be given on a p.r.n. basis. The patient is calm at the time being, no behavioral issues. He still needs close monitoring and still has episodes of irritability, but seems to be less than before. Otherwise, the patient is compliant with taking medications when needed. ASSESSMENT: The patient still needs close monitoring. TREATMENT PLAN: Continue Seroquel on a p.r.n. basis and we will continue to follow up. [facility]# [id number]
--- NOTE | 2019-04-09 21:38 | Internal Medicine Prog Note ---
Internal Medicine Subjective - Subjective Service Date: 04/09/19 Patient seen and examined:: with staff Patient is:: awake, verbal Patient Complaints of:: other (Generalized weakness.) Per staff patient has:: no adverse event, no episodes of fall Internal Medicine Objective - Results Result Diagrams: 04/08/19 04:15 04/08/19 04:15 Recent Labs: Laboratory Last Values WBC 10.1 Th/cmm (4.8-10.8) 04/08/19 04:15 RBC 4.64 Mil/cmm (3.80-5.80) 04/08/19 04:15 Hgb 12.1 gm/dL (12-16) 04/08/19 04:15 Hct 36.8 % (41.0-60) L 04/08/19 04:15 MCV 79.4 fl (80-99) L 04/08/19 04:15 MCH 26.2 pg (27.0-31.0) L 04/08/19 04:15 MCHC Differential 33.0 pg (28.0-36.0) 04/08/19 04:15 RDW 16.7 % (11.5-20.0) 04/08/19 04:15 Plt Count 314 Th/cmm (150-400) 04/08/19 04:15 MPV 8.4 fl 04/08/19 04:15 Add Manual Diff ENAMEL BUFFER 04/06/19 06:05 Neutrophils % 72.2 % (40.0-80.0) 04/08/19 04:15 Lymphocytes % 13.7 % (20.0-50.0) L 04/08/19 04:15 Monocytes % 8.8 % (2.0-10.0) 04/08/19 04:15 Eosinophils % 5.3 % (0.0-5.0) H 04/08/19 04:15 Basophils % 0.0 % (0.0-2.0) 04/08/19 04:15 Neutrophils (Manual) Not Reportable 04/06/19 06:05 Sodium 147 mEq/L (136-145) H 04/08/19 04:15 Potassium 4.1 mEq/L (3.5-5.1) 04/08/19 04:15 Chloride 113 mEq/L (98-107) H 04/08/19 04:15 Carbon Dioxide 25.4 mEq/L (21.0-31.0) 04/08/19 04:15 Anion Gap 12.7 (7.0-16.0) 04/08/19 04:15 BUN 10 mg/dL (7-25) 04/08/19 04:15 Creatinine 0.8 mg/dL (0.7-1.3) 04/08/19 04:15 Est GFR ( Amer) TNP 04/08/19 04:15 Est GFR (Non-Af Amer) TNP 04/08/19 04:15 BUN/Creatinine Ratio 12.5 04/08/19 04:15 Glucose 115 mg/dL (70-105) H 04/08/19 04:15 POC Glucose 154 MG/DL (70 - 105) H 04/09/19 16:32 Calcium 9.0 mg/dL (8.6-10.3) 04/08/19 04:15 - Physical Exam Vitals and I&O: Vital Signs Temp 97.5 F 04/09/19 16:00 Pulse 61 04/09/19 16:00 Resp 16 04/09/19 16:00 BP 156/67 04/09/19 16:00 Pulse Ox 98 04/09/19 16:00 Intake & Output 04/09/19 04/09/19 04/10/19 06:59 18:59 06:59 Intake Total 300 Balance 300 Weight (lbs) 70.307 kg Intake: Oral 300 Other: # Voids 2 # Bowel Movements 0 Weight Source Bedscale Active Medications: Current Medications Acetaminophen (Tylenol) 650 mg PO Q4HR PRN PRN Reason: MILD PAIN Stop: 06/03/19 18:08 Last Admin: 04/06/19 11:02 Dose: 650 mg Al Hydrox/Mg Hydrox/Simethicone (Maalox) 30 ml PO Q4HR PRN PRN Reason: GI DISTRESS Stop: 06/03/19 18:08 Amlodipine Besylate (Norvasc) 10 mg PO DAILY [facility] Stop: 06/04/19 08:59 Last Admin: 04/09/19 09:01 Dose: 10 mg Aspirin (Ecotrin) 81 mg PO DAILY [facility] Stop: 06/04/19 08:59 Last Admin: 04/09/19 09:01 Dose: 81 mg Atorvastatin Calcium (Lipitor) 40 mg PO HS [facility]; Protocol Stop: 06/03/19 20:59 Last Admin: 04/08/19 21:05 Dose: 40 mg Clindamycin HCl (Cleocin Hcl) 150 mg PO Q8HR [facility] Stop: 06/06/19 12:59 Last Admin: 04/09/19 12:56 Dose: 150 mg Clopidogrel Bisulfate (Plavix) 75 mg PO DAILY [facility] Stop: 06/04/19 08:59 Last Admin: 04/09/19 09:01 Dose: 75 mg Dextrose (D50w) 50 ml IVP PRN PRN PRN Reason: Blood Glucose less than 70 Stop: 06/03/19 19:35 Dextrose (Glutose 40%) 18.75 gm PO PRN PRN PRN Reason: Blood Glucose less than 70 Stop: 06/03/19 19:35 Docusate Sodium (Colace) 100 mg PO BID [facility] Stop: 06/04/19 08:59 Last Admin: 04/09/19 16:04 Dose: 100 mg Hydromorphone HCl (Dilaudid) 2 mg PO Q4HR PRN PRN Reason: Severe Pain Stop: 06/03/19 19:48 Last Admin: 04/06/19 16:45 Dose: 2 mg Dextrose/Sodium Chloride (D5-0.45ns) 1,000 mls @ 50 mls/hr IV .Q20H [facility] Stop: 06/04/19 10:45 Last Admin: 04/09/19 10:25 Dose: 50 mls/hr Sodium Chloride (Nacl 0.45%) 500 mls @ 0 mls/hr IV .Q0M [facility] Stop: 06/04/19 17:41 Last Admin: 04/05/19 17:47 Dose: 500 mls/hr Insulin Human Lispro (Humalog Insulin Sliding Scale) 0 units SUBQ [facility]; Protocol Stop: 06/07/19 20:59 Last Admin: 04/09/19 17:33 Dose: Not Given Quetiapine Fumarate (Seroquel) 12.5 mg PO TID [facility]; Protocol PRN Reason: Agitation Stop: 06/07/19 08:59 Physical Exam: 83 y/o male patient had CT Carotid Angiogram shows Mild atherosclerotic changes. General: weak, demented, obese HEENT: NC/AT Neck: Supple, No JVD Lungs: CTAB Cardiovascular: other (irregular- afib, paced on monitor) Abdomen: soft, non-tender Extremities: clear, other (Left hand swelling) Neurological: no change Internal Medicine Assmt/Plan - Assessment Assessment: Mild atherosclerotic changes. Generalized weakness. Possible Dementia. Htn. Atrial fibrilation. Hyperlipidimia. CAD. - Plan Plan: Continuation of care. Monitor Labs. Continue present meds as directed. Monitor vitals, continue B/P meds. Monitor Diet/Nutritional support. Psych management per Psych. Pain Management. Physical therapy. Occupational therapy. Safety precaution. Supportive care. Fall precaution, frequent nursing rounds, and as needed restraints to prevent fall. Continue collaborating with consulting specialists, case management and nursing team. Will Monitor patient and continue present care management. Nutritional Asmnt/Malnutr-PDOC - Dietary Evaluation Malnutrition Findings (Please click <Entered> for more info): see orders.
--- NOTE | 2019-04-10 02:37 | Infectious Disease Prog Note ---
Infectious Disease Subjective - Review of Systems Service Date: 04/09/19 Subjective: There is no new change, no fever. Infectious Disease Objective - Results Result Diagrams: 04/08/19 04:15 04/08/19 04:15 Recent Labs: Laboratory Last Values WBC 10.1 Th/cmm (4.8-10.8) 04/08/19 04:15 RBC 4.64 Mil/cmm (3.80-5.80) 04/08/19 04:15 Hgb 12.1 gm/dL (12-16) 04/08/19 04:15 Hct 36.8 % (41.0-60) L 04/08/19 04:15 MCV 79.4 fl (80-99) L 04/08/19 04:15 MCH 26.2 pg (27.0-31.0) L 04/08/19 04:15 MCHC Differential 33.0 pg (28.0-36.0) 04/08/19 04:15 RDW 16.7 % (11.5-20.0) 04/08/19 04:15 Plt Count 314 Th/cmm (150-400) 04/08/19 04:15 MPV 8.4 fl 04/08/19 04:15 Add Manual Diff YOUTH COUNSELOR 04/06/19 06:05 Neutrophils % 72.2 % (40.0-80.0) 04/08/19 04:15 Lymphocytes % 13.7 % (20.0-50.0) L 04/08/19 04:15 Monocytes % 8.8 % (2.0-10.0) 04/08/19 04:15 Eosinophils % 5.3 % (0.0-5.0) H 04/08/19 04:15 Basophils % 0.0 % (0.0-2.0) 04/08/19 04:15 Neutrophils (Manual) Not Reportable 04/06/19 06:05 Sodium 147 mEq/L (136-145) H 04/08/19 04:15 Potassium 4.1 mEq/L (3.5-5.1) 04/08/19 04:15 Chloride 113 mEq/L (98-107) H 04/08/19 04:15 Carbon Dioxide 25.4 mEq/L (21.0-31.0) 04/08/19 04:15 Anion Gap 12.7 (7.0-16.0) 04/08/19 04:15 BUN 10 mg/dL (7-25) 04/08/19 04:15 Creatinine 0.8 mg/dL (0.7-1.3) 04/08/19 04:15 Est GFR ( Amer) TNP 04/08/19 04:15 Est GFR (Non-Af Amer) TNP 04/08/19 04:15 BUN/Creatinine Ratio 12.5 04/08/19 04:15 Glucose 115 mg/dL (70-105) H 04/08/19 04:15 POC Glucose 174 MG/DL (70 - 105) H 04/09/19 22:07 Calcium 9.0 mg/dL (8.6-10.3) 04/08/19 04:15 - Physical Exam Vitals and I&O: Vital Signs Temp 97.5 F 04/09/19 16:00 Pulse 61 04/09/19 16:00 Resp 16 04/09/19 23:25 BP 156/67 04/09/19 16:00 Pulse Ox 98 04/09/19 16:00 Intake & Output 04/09/19 04/09/19 04/10/19 06:59 18:59 06:59 Intake Total 300 Balance 300 Weight (lbs) 70.307 kg Intake: Oral 300 Other: # Voids 2 # Bowel Movements 0 Weight Source Bedscale Active Medications: Current Medications Acetaminophen (Tylenol) 650 mg PO Q4HR PRN PRN Reason: MILD PAIN Stop: 06/03/19 18:08 Last Admin: 04/06/19 11:02 Dose: 650 mg Al Hydrox/Mg Hydrox/Simethicone (Maalox) 30 ml PO Q4HR PRN PRN Reason: GI DISTRESS Stop: 06/03/19 18:08 Amlodipine Besylate (Norvasc) 10 mg PO DAILY [facility] Stop: 06/04/19 08:59 Last Admin: 04/09/19 09:01 Dose: 10 mg Aspirin (Ecotrin) 81 mg PO DAILY SUHAS Stop: 06/04/19 08:59 Last Admin: 04/09/19 09:01 Dose: 81 mg Atorvastatin Calcium (Lipitor) 40 mg PO HS SUHAS; Protocol Stop: 06/03/19 20:59 Last Admin: 04/09/19 22:02 Dose: 40 mg Clindamycin HCl (Cleocin Hcl) 150 mg PO Q8HR [facility] Stop: 06/06/19 12:59 Last Admin: 04/09/19 22:02 Dose: 150 mg Clopidogrel Bisulfate (Plavix) 75 mg PO DAILY [facility] Stop: 06/04/19 08:59 Last Admin: 04/09/19 09:01 Dose: 75 mg Dextrose (D50w) 50 ml IVP PRN PRN PRN Reason: Blood Glucose less than 70 Stop: 06/03/19 19:35 Dextrose (Glutose 40%) 18.75 gm PO PRN PRN PRN Reason: Blood Glucose less than 70 Stop: 06/03/19 19:35 Docusate Sodium (Colace) 100 mg PO BID [facility] Stop: 06/04/19 08:59 Last Admin: 04/09/19 16:04 Dose: 100 mg Hydromorphone HCl (Dilaudid) 2 mg PO Q4HR PRN PRN Reason: Severe Pain Stop: 06/03/19 19:48 Last Admin: 04/06/19 16:45 Dose: 2 mg Dextrose/Sodium Chloride (D5-0.45ns) 1,000 mls @ 50 mls/hr IV .Q20H [facility] Stop: 06/04/19 10:45 Last Admin: 04/09/19 10:25 Dose: 50 mls/hr Sodium Chloride (Nacl 0.45%) 500 mls @ 0 mls/hr IV .Q0M [facility] Stop: 06/04/19 17:41 Last Admin: 04/05/19 17:47 Dose: 500 mls/hr Insulin Human Lispro (Humalog Insulin Sliding Scale) 0 units SUBQ ACHS [facility]; Protocol Stop: 06/07/19 20:59 Last Admin: 04/09/19 22:11 Dose: 2 units Quetiapine Fumarate (Seroquel) 12.5 mg PO TID PRN; Protocol PRN Reason: Agitation Stop: 06/07/19 08:59 Last Admin: 04/09/19 23:15 Dose: 12.5 mg General: no acute distress, well developed, well nourished HEENT: atraumatic, normocephalic, PERRLA, EOMI, moist mucous membrane Neck: supple, no thyromegaly Cardiovascular: S1S2, regular Lungs: clear to auscultation bilaterally, clear to percussion, crackles, no wheeze Abdomen: soft, bowel sounds, no tender, no distended, no hepatomegaly, no splenomegaly Extremities: no cyanosis, no clubbing, no edema Neurological: awake, alert, oriented Skin: intact Infectious Disease Assmt/Plan - Assessment Assessment: 1. Left forearm cellulitis. improving. 2. Right hand wound. No sign of infection. 3. Dementia. 4. Hyperlipidemia. 5. Hypertension. 6. Cerebrovascular accident with left-sided weakness. - Plan Plan: Continue clinda x total 7 days.
[2019-04-10 05:40] LABS: % BASOPHILS 0.1 % (0.0-2.0); % EOSINOPHILS 5.9 % (0.0-5.0); % LYMPHOCYTES 17.6 % (20.0-50.0); % MONOCYTES 8.2 % (2.0-10.0); % NEUTROPHILS 68.2 % (40.0-80.0); EOSINOPHILE ABSOLUTE 0.6 Th/cmm (0.1-0.4); HEMATOCRIT 36.6 % (41.0-60); LYMPHOCYTE ABSOLUTE 1.7 Th/cmm (1.5-3.0); MEAN CELL VOLUME 81.3 fl (80-99); MEAN CORPUSCULAR HEMOGLOBIN 26.7 pg (27.0-31.0); MEAN CORPUSCULAR HGB CONC 32.8 pg (28.0-36.0); MONOCYTE ABSOLUTE 0.8 Th/cmm (0.3-1.0); NEUTROPHILE ABSOLUTE 6.3 Th/cmm (1.8-8.0); PLATELET COUNT 289 Th/cmm (150-400); RED CELL DISTRIBUTION WIDTH 16.5 % (11.5-20.0); WHITE BLOOD COUNT 9.4 Th/cmm (4.8-10.8)
[2019-04-10 05:51] LABS: ALB/GLOB RATIO 1.5 (1.0-1.8); ALBUMIN 3.2 gm/dL (4.2-5.5); ALKALINE PHOSPHATASE 84 U/L (34-104); ANION GAP 13.5 (7.0-16.0); BILIRUBIN,TOTAL 0.7 mg/dL (0.3-1.0); BUN - UREA NITROGEN 10 mg/dL (7-25); CALCIUM SERUM 8.5 mg/dL (8.6-10.3); CHLORIDE 113 mEq/L (98-107); CREATININE - SERUM 0.8 mg/dL (0.7-1.3); GLUCOSE 180 mg/dL (70-105); POTASSIUM SERUM 3.5 mEq/L (3.5-5.1); SGOT 17 U/L (13-39); SGPT/ALT 11 U/L (7-52); SODIUM SERUM 144 mEq/L (136-145); TOTAL PROTEIN,SERUM 5.4 gm/dL (6.0-8.3)
[2019-04-10] MEDS: D5-0.45NS 1,000 ML IV SCH (05:56)
[2019-04-10] MEDS: INSULIN LISPRO SLIDING SCALE 100 UNITS/ML UNIT SUBQ SCH ×4 (07:38→20:53)
--- NOTE | 2019-04-10 08:20 | Diagnostic Imaging Report ---
CT angiogram of the brain with intravenous contrast (CTA) HISTORY: Stroke, CVA Total DLP equals 340 CTDI equals 9.4 Following administration arches contrast, axial sections were obtained from the base of the skull the vertex. The exam demonstrates a normal caliber of the distal portions of the internal carotid arteries. No abnormalities are seen within the intracavernous portions of the internal carotid arteries. The left vertebral artery exhibits diminished caliber compared to the right side. However no discrete focal narrowing/stenosis is seen. The basilar artery appears normal. No abnormalities are seen in about the [place]. Specifically, no aneurysms are seen. No other vascular malformations. Normal positioning of the middle and anterior cerebral arteries. Posterior circulation is unremarkable. IMPRESSION: Normal examination
[2019-04-10] MEDS: Apixaban 5 MG TABLET PO SCH ×2 (08:31→18:20)
--- NOTE | 2019-04-10 10:47 | Progress Notes ---
DATE: 04/09/2019 SUBJECTIVE: The patient lying in bed. Awake. Still weakness, left arm. No seizures. OBJECTIVE: VITAL SIGNS: Temperature 98.2, blood pressure 130/74, pulse is 64. NECK: Supple. No neck bruits. GENERAL: The patient is awake. The patient will follow simple instruction, confused. Left arm weakness. Moving legs. INVESTIGATIONS: CT angio of head and neck shows that there is mild atherosclerotic changes. No significant stenosis. ASSESSMENT: stroke. The patient with left arm weakness. CAT scan shows old stroke. Carotid Doppler study showed 57% stenosis. CT angio carotid shows no significant stenosis. PLAN: Antiplatelet antilipid medication. Physical therapy, rehabilitation nursing. JOB# [id number]
--- NOTE | 2019-04-10 13:20 | Internal Medicine Prog Note ---
Internal Medicine Subjective - Subjective Service Date: 04/10/19 Patient is:: awake, verbal Patient Complaints of:: other (Generalized weakness.) Per staff patient has:: no adverse event, no episodes of fall Internal Medicine Objective - Results Result Diagrams: 04/10/19 05:10 04/10/19 05:10 Recent Labs: Laboratory Last Values WBC 9.4 Th/cmm (4.8-10.8) 04/10/19 05:10 RBC 4.50 Mil/cmm (3.80-5.80) 04/10/19 05:10 Hgb 12.0 gm/dL (12-16) 04/10/19 05:10 Hct 36.6 % (41.0-60) L 04/10/19 05:10 MCV 81.3 fl (80-99) 04/10/19 05:10 MCH 26.7 pg (27.0-31.0) L 04/10/19 05:10 MCHC Differential 32.8 pg (28.0-36.0) 04/10/19 05:10 RDW 16.5 % (11.5-20.0) 04/10/19 05:10 Plt Count 289 Th/cmm (150-400) 04/10/19 05:10 MPV 8.2 fl 04/10/19 05:10 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 Manual 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 04/06/19 06:05 Neutrophils % 68.2 % (40.0-80.0) 04/10/19 05:10 Lymphocytes % 17.6 % (20.0-50.0) L 04/10/19 05:10 Monocytes % 8.2 % (2.0-10.0) 04/10/19 05:10 Eosinophils % 5.9 % (0.0-5.0) H 04/10/19 05:10 Basophils % 0.1 % (0.0-2.0) 04/10/19 05:10 Neutrophils (Manual) Not Reportable 04/06/19 06:05 Sodium 144 mEq/L (136-145) 04/10/19 05:10 Potassium 3.5 mEq/L (3.5-5.1) 04/10/19 05:10 Chloride 113 mEq/L (98-107) H 04/10/19 05:10 Carbon Dioxide 21.0 mEq/L (21.0-31.0) 04/10/19 05:10 Anion Gap 13.5 (7.0-16.0) 04/10/19 05:10 BUN 10 mg/dL (7-25) 04/10/19 05:10 Creatinine 0.8 mg/dL (0.7-1.3) 04/10/19 05:10 Est GFR ( Amer) TNP 04/10/19 05:10 Est GFR (Non-Af Amer) TNP 04/10/19 05:10 BUN/Creatinine Ratio 12.5 04/10/19 05:10 Glucose 180 mg/dL (70-105) H 04/10/19 05:10 POC Glucose 147 MG/DL (70 - 105) H 04/10/19 11:08 Calcium 8.5 mg/dL (8.6-10.3) L 04/10/19 05:10 Total Bilirubin 0.7 mg/dL (0.3-1.0) 04/10/19 05:10 AST 17 U/L (13-39) 04/10/19 05:10 ALT 11 U/L (7-52) 04/10/19 05:10 Alkaline Phosphatase 84 U/L (34-104) 04/10/19 05:10 Total Protein 5.4 gm/dL (6.0-8.3) L 04/10/19 05:10 Albumin 3.2 gm/dL (4.2-5.5) L 04/10/19 05:10 Globulin 2.2 gm/dL 04/10/19 05:10 Albumin/Globulin Ratio 1.5 (1.0-1.8) 04/10/19 05:10 - Physical Exam Vitals and I&O: Vital Signs Temp 97.5 F 04/10/19 04:00 Pulse 87 04/10/19 08:31 Resp 16 04/10/19 12:00 BP 154/52 04/10/19 08:31 Pulse Ox 100 04/10/19 04:00 Intake & Output 04/09/19 04/10/19 04/10/19 18:59 06:59 18:59 Intake Total 300 975.833 Balance 300 975.833 Weight (lbs) 155 lb Intake: Intake, IV Amount 975.833 D5-0.45NS 1,000 ml @ 50 975.833 mls/hr IV .Q20H [facility] Rx#: [id number] Oral 300 Other: # Voids 2 # Bowel Movements 0 Weight Source Bedscale Active Medications: Current Medications Acetaminophen (Tylenol) 650 mg PO Q4HR PRN PRN Reason: MILD PAIN Stop: 06/03/19 18:08 Last Admin: 04/06/19 11:02 Dose: 650 mg Al Hydrox/Mg Hydrox/Simethicone (Maalox) 30 ml PO Q4HR PRN PRN Reason: GI DISTRESS Stop: 06/03/19 18:08 Amlodipine Besylate (Norvasc) 10 mg PO DAILY [facility] Stop: 06/04/19 08:59 Last Admin: 04/10/19 08:31 Dose: 10 mg Aspirin (Ecotrin) 81 mg PO DAILY [facility] Stop: 06/04/19 08:59 Last Admin: 04/10/19 08:31 Dose: 81 mg Atorvastatin Calcium (Lipitor) 40 mg PO HS [facility]; Protocol Stop: 06/03/19 20:59 Last Admin: 04/09/19 22:02 Dose: 40 mg Clindamycin HCl (Cleocin Hcl) 150 mg PO Q8HR [facility] Stop: 06/06/19 12:59 Last Admin: 04/10/19 12:44 Dose: 150 mg Clopidogrel Bisulfate (Plavix) 75 mg PO DAILY [facility] Stop: 06/04/19 08:59 Last Admin: 04/10/19 08:31 Dose: 75 mg Dextrose (D50w) 50 ml IVP PRN PRN PRN Reason: Blood Glucose less than 70 Stop: 06/03/19 19:35 Dextrose (Glutose 40%) 18.75 gm PO PRN PRN PRN Reason: Blood Glucose less than 70 Stop: 06/03/19 19:35 Docusate Sodium (Colace) 100 mg PO BID [facility] Stop: 06/04/19 08:59 Last Admin: 04/10/19 08:35 Dose: 100 mg Hydromorphone HCl (Dilaudid) 2 mg PO Q4HR PRN PRN Reason: Severe Pain Stop: 06/03/19 19:48 Last Admin: 04/06/19 16:45 Dose: 2 mg Dextrose/Sodium Chloride (D5-0.45ns) 1,000 mls @ 50 mls/hr IV .Q20H [facility] Stop: 06/04/19 10:45 Last Admin: 04/10/19 05:56 Dose: 50 mls/hr Sodium Chloride (Nacl 0.45%) 500 mls @ 0 mls/hr IV .Q0M [facility] Stop: 06/04/19 17:41 Last Admin: 04/05/19 17:47 Dose: 500 mls/hr Insulin Human Lispro (Humalog Insulin Sliding Scale) 0 units SUBQ ACHS [facility]; Protocol Stop: 06/07/19 20:59 Last Admin: 04/10/19 11:10 Dose: Not Given Quetiapine Fumarate (Seroquel) 12.5 mg PO TID PRN; Protocol PRN Reason: Agitation Stop: 06/07/19 08:59 Last Admin: 04/09/19 23:15 Dose: 12.5 mg General: weak, demented, obese HEENT: NC/AT Neck: Supple, No JVD Lungs: CTAB Cardiovascular: other (irregular- afib, paced on monitor) Abdomen: soft, non-tender Extremities: clear, other (Left hand swelling) Neurological: no change Internal Medicine Assmt/Plan - Assessment Assessment: Generalized weakness Possible dementia HTN Afib Hyperlipidemia CAD Left hand swelling - Plan Plan: Continue plan of care Continue to monitor Labs, VS, strict I/O Fall Precaution Aspiration precaution Continue to collaborate with consulting specialist and interdisciplinary team
--- NOTE | 2019-04-11 02:13 | Progress Notes ---
DATE: 04/10/2019 SUBJECTIVE: Chart was reviewed and the patient interviewed. Also discussed the patient's condition with the staff and reviewed records and labs. The patient still has episodes of yelling and screaming when touched by nurses in special areas because of pain. He also is still confused and still forgetful and needs lots of redirections. Otherwise, the patient is compliant with taking his medications and decreased agitation and decreased behavioral problems. ASSESSMENT: The patient is still agitated and needs monitoring. TREATMENT PLAN: Continue current medications and continue to monitor his behavior. Also, continue to work on his agitation and follow up closely. [facility]# [id number]
--- NOTE | 2019-04-11 08:20 | Diagnostic Imaging Report ---
Exam: Left shoulder joint HISTORY: Pain Findings: Portable examination left shoulder joint demonstrate no evidence of fracture dislocation. Mild degenerative changes of the left humeral head appreciated. The acromioclavicular joint is intact. IMPRESSION: Essentially unremarkable examination of left shoulder joint.
--- NOTE | 2019-04-11 08:21 | Diagnostic Imaging Report ---
Exam: Left hand HISTORY: Pain Findings: Multiple views of left hand demonstrates no evidence of acute fracture dislocation. Mild degenerative facet right is noted. There is mild soft tissue swelling dorsally. IMPRESSION: degenerative changes the right hand, mild soft tissue swelling.
--- NOTE | 2019-04-11 15:14 | Discharge Summary ---
DATE OF DISCHARGE: 04/10/2019 This patient was admitted on 04/04/2019 and was discharged to [facility] on 04/10/2019. The patient was admitted for 83-year-old male with left-sided weakness, increasing possible recurrent cerebrovascular accident, possible dementia, atrial fibrillation, hyperlipidemia, coronary artery disease, psychosis. The patient was treated for all of that and also was in the Geropsych Unit and for agitation. The patient improved and the patient was in stable condition on 04/10/2019. The patient was discharged back to [facility] where I will be following the patient. MEDICATIONS: See the reconciliation sheet. ACTIVITY: As tolerated. [facility]# [id number]
== END 2019-04-10 22:16 | DRG 65 ==
LOC: TELE 17:28
PROVIDERS: ADMIT Internal Medicine; ATTEND Internal Medicine
DX: I63.9 Cerebral infarction, unspecified (principal); L03.114 Cellulitis of left upper limb; I69.954 Hemiplegia and hemiparesis following unspecified cerebrovascular disease affecting left non-dominant side; F03.90 Unspecified dementia, unspecified severity, without behavioral disturbance, psychotic disturbance, mood disturbance, and anxiety; I10 Essential (primary) hypertension; I48.91 Unspecified atrial fibrillation; F20.9 Schizophrenia, unspecified; E78.5 Hyperlipidemia, unspecified; I25.10 Atherosclerotic heart disease of native coronary artery without angina pectoris; M79.89 Other specified soft tissue disorders; F29 Unspecified psychosis not due to a substance or known physiological condition; Z88.0 Allergy status to penicillin; Z88.5 Allergy status to narcotic agent; Z79.899 Other long term (current) drug therapy
CPT/HCPCS: 36415-UA; 70498-TC; 73030-TC-LT; 73120-TC-LT; 80048-TC; 80053-TC; 82948-90; 85007-TC; 85025-TC; 93880-TC; 97530; 97971-TC-LT; J3480; X3904; Z7610

== ENCOUNTER 2019-04-10 22:45 | Inpatient (IN) | payer MEDICARE, OTHER ==
[2019-04-11 01:02] VITALS: BP 145/100
[2019-04-11] MEDS ORDERED: Magnesium Hydroxide (MOM) 30 mL UDC PO PRN (01:49)
[2019-04-11] MEDS ORDERED: Maalox 30 mL Cup PO PRN (01:49)
[2019-04-11] MEDS: Potassium Chloride 20 mEq ER Tab PO SCH (08:40)
[2019-04-11] MEDS: Multivitamin Tab PO SCH (08:40)
[2019-04-11] MEDS ORDERED: INSULIN LISPRO SLIDING SCALE 100 UNITS/ML UNIT SUBQ SCH ×2 (09:00→21:00)
[2019-04-11] MEDS: Peg-400/Propylene Ophth Soln 5 mL Bottle EACH EYE SCH ×3 (09:56→21:34)
[2019-04-11] MEDS: Apixaban 5 MG TABLET PO SCH ×2 (09:56→17:34)
[2019-04-11] MEDS: INSULIN LISPRO SLIDING SCALE 100 UNITS/ML UNIT SUBQ SCH ×3 (11:30→21:32)
--- NOTE | 2019-04-11 13:33 | Psychiatric Evaluation ---
DATE OF SERVICE: PSYCHIATRIC INITIAL EVALUATION AND MENTAL STATUS EXAM PATIENT'S AGE: 83. SEX: Male. PHYSICIAN: Dr. Almanza. CHIEF COMPLAINT: Agitation. HISTORY OF PRESENT ILLNESS: The patient is an 83-year-old male who was in treatment in the Med/Surg unit after transferred from [place] [facility]. The patient was anxious and was agitated in the Med/Surg unit, but he was compliant with taking medications include Seroquel and Cymbalta. The patient was still restless and it was felt that the patient needs more treatment. The patient continued to be agitated and irritable mood. He also has difficulty following directions and easily agitated. HOSPITAL COURSE: The patient continued to be agitated and restless. The patient also continued to be having mood swings. CURRENT PSYCHOTROPIC MEDICATIONS: Seroquel 2.5 mg twice a day, Cymbalta 60 mg every day. PAST MEDICAL HISTORY: The patient was in a Med/Surg unit and the patient has a history of left side weakness. Also, the patient has hypertension as well as atrial fib, hyperlipidemia and coronary artery disease. SOCIAL HISTORY: The [facility] lives [facility] [place] [facility]. No known alcohol or drug use. MENTAL STATUS EXAMINATION: The patient appears his stated age. Anxious. Confused. Thought processes are with poverty of speech, circumstantial and tangential. Restless and fidgety. The patient did not answer questions regarding hallucinations or delusions, but actively responding to stimuli. The patient did not answer question regarding suicide or homicide. The patient is alert, but seems to be disoriented to time, place, person and situation. Impaired immediate and recent memories, but intact remote memory. Poor insight and judgment. ASSESSMENT: PRIMARY DIAGNOSIS: Unspecified psychosis. SECONDARY DIAGNOSIS: Dementia, moderate to severe, with psychotic features. TREATMENT PLAN: We will monitor the patient's behavior and condition closely. Also, we will continue current psychotropic medications and will adjust the dose. CRITERIA FOR DISCHARGE: The patient will be less agitated and will be more compliant with his treatment. [facility]# [id number]
--- NOTE | 2019-04-11 15:28 | History and Physical ---
History of Present Illness - HPI Chief Complaint: 83 y/o male patient was transferred from [facility] to Medical floor for further care management. HPI: 83 y/o male patient was transferred to medical surg unit for further care management. Patient was complaining of Left hand pain, Swelling of left hand and Agitation. Patient has history of moderate to severe Dementia, CAD, Atrial fibrillation, Generalized weakness and Hyperlipidemia. Patient was assessed and had a complete workup done. Patient had x-ray left hand and x-ray of left shoulder which showed degenerative changes of hand but did not show a fracture of left hand. Patient was diagnosed with Edema of left hand with pain, Agitation and Mood swings. Patient will also have a Psych consult. I will follow, treat and monitor patient. Patient will continue current treatment plan as ordered. 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 GI: Report: No Pertinent Hx Psych: Report: Psychosis Musculoskeletal: Report: Swelling, Other (edema and pain of left hand.) Rheumatologic: Report: No pertinent Hx Infectious Disease: Report: No Pertinent Hx Renal/: Report: No Pertinent Hx Endocrine: Report: No Pertinent Hx Dermatology: Report: Other (Left hand swelling and pain.) - Past Surgical History Past Surgical History: No pertinent Hx Family Medical History - Family Member Daughter History Unknown: Yes Ethnicity: Non- Living Status: Unknown Hx Family Cancer: No Hx Family Coronary Artery Disease: No Hx Family Congestive Heart Failure: No Hx Family Hypertension: No Hx Family Stroke: No Hx Family Diabetes: No Hx Family Seizures: No Hx Family Dementia: No Hx Family AIDS: No Hx Family HIV: No Hx Family COPD: No Hx Family Hepatitis: No Hx Family Psychiatric Problems: No Hx Family Tuberculosis: No Social History Smoke: No Alcohol: None Drugs: None Lives: Shelter Domestic Violence: Negative Health Maintenance Health Maintenance: Other (please see chart.) - Medications Home Medications: Home Medication Medication Instructions Recorded Type Acetaminophen [Tylenol] 650 mg PO Q4HR PRN tab 04/04/19 Rx Al Hyd/Mg Hyd/Simethicone [Maalox] 30 ml PO Q4HR PRN udc 04/04/19 Rx Apixaban [Eliquis] 5 mg PO BID tablet 04/04/19 Rx Aspirin EC [Ecotrin] 81 mg PO DAILY ect 04/04/19 Rx Atorvastatin Calcium [Lipitor] 40 mg PO HS tab 04/04/19 Rx Clopidogrel [Plavix] 75 mg PO DAILY tab 04/04/[address] [Cymbalta] 60 mg PO DAILY ecc 04/04/19 Rx Docusate Sodium [Colace] 100 mg PO BID cap 04/04/19 Rx Insulin Human Isophane (NPH) 10 units SUBQ HS unit 04/04/19 Rx [NovoLIN N] Insulin Lispro Sliding Scale See Protocol SUBQ BID unit 04/04/19 Rx [humaLOG INSULIN SLIDING SCALE] Insulin Lispro Sliding Scale See Protocol SUBQ HS unit 04/04/19 Rx [humaLOG INSULIN SLIDING SCALE] Magnesium Hydroxide [Milk of 30 ml PO HS PRN udc 04/04/19 Rx Magnesia] Multivitamin [Theragran] 1 tab PO DAILY tab 04/04/19 Rx Peg-400/Propylene Ophth Soln 1 drop EACH EYE TID drops 04/04/19 Rx [Systane Ophth Soln] Potassium Chloride ER [Klor-Con] [address] 04/04/19 Rx QUEtiapine Fumarate [SEROquel] 0.25 mg PO BID tab 04/04/19 Rx Zolpidem Tartrate [Ambien] 5 mg PO HS PRN tab 04/04/19 Rx amLODIPine Besylate [Norvasc*] 10 mg PO DAILY tab 04/04/19 Rx Other Medications: Please see medication reconciliation sheet. - Allergies Allergies/Adverse Reactions: Allergies Allergy/AdvReac Type Severity Reaction Status Date / Time codeine Allergy Verified 01/16/19 20:10 lactose Allergy Verified 01/16/19 20:10 morphine Allergy Verified 01/16/19 20:10 Penicillins Allergy Verified 01/16/19 20:10 Review of Systems - Review of Systems Review of Systems: 83 y/o male patient has swelling and pain of left hand, he is also restless and very agitated. Constitutional: Report: No Significant Eyes: Report: No Significant ENT: Report: No Significant Respiratory: Report: No Significant Cardiovascular: Report: No Significant Gastrointestinal: Report: No Significant Genitourinary: Report: No Significant Musculoskeletal: Report: Hand Pain Skin: Report: Other (edema of left hand.) Neurological: Report: Other (Agitated.) Physical Exam - Physical Exam HEENT: Report: Ears Nose Throat within normal limits Neck: Report: Within normal limits Cardiovascular Systems: Report: +s1/s2 noted Respiratory: Report: Breath Sounds are within normal limits Abdomen: Report: Non-tender to palpation Back: Report: Inspection of back is within normal limits. Extremities: Report: Non-tender to palpation. Skin: Report: Color of skin is within normal limits Neuro/Psych: Report: Other (Restless and Agitated.) - Lab Results All Lab Results last 24 hours: Laboratory Results - last 24 hr 04/11/19 11:20 POC Glucose 175 H - Assessment Assessment: Edema and pain of left hand. Moderate to Severe Dementia. Agitation. Restless. Generalized weakness. Hx of Atrial fibrillation. Hx of CAD. Hx of Hyperlipidemia. - Plan Plan: Continuation of care. Monitor Labs. Continue present meds as directed. Monitor vitals, Continue BP meds as directed. Monitor Diet/Nutritional support. Psych management per Psych. Pain Management. Physical therapy. Occupational therapy. Fall precaution, frequent nursing rounds, and as needed restraints to prevent fall. Safety precaution. Supportive care. Continue collaborating with consulting specialists, case management and nursing team. Will Monitor patient and continue current treatment plan as ordered.
[2019-04-11] MEDS: INSULIN HUMAN ISOPHANE (NPH) 100 UNITS/ML SUBQ SCH (21:35)
[2019-04-12] MEDS: INSULIN LISPRO SLIDING SCALE 100 UNITS/ML UNIT SUBQ SCH ×4 (06:33→20:36)
[2019-04-12] MEDS: Peg-400/Propylene Ophth Soln 5 mL Bottle EACH EYE SCH ×3 (10:23→20:32)
[2019-04-12] MEDS: Apixaban 5 MG TABLET PO SCH ×2 (10:23→16:43)
[2019-04-12] MEDS: Multivitamin Tab PO SCH (10:24)
[2019-04-12] MEDS: Potassium Chloride 20 mEq ER Tab PO SCH (10:33)
[2019-04-12] MEDS: INSULIN HUMAN ISOPHANE (NPH) 100 UNITS/ML SUBQ SCH (20:33)
--- NOTE | 2019-04-13 01:33 | Progress Notes ---
DATE: 04/12/2019 SUBJECTIVE: The patient was seen in his room. The patient is awake, but poor historian. The patient appears to be agitated. Episodes of behavioral outburst. Otherwise, the patient appears to be in no acute distress. OBJECTIVE: VITAL SIGNS: Temperature ____, heart rate 56, blood pressure ____, respirations 19, 99% on room air. HEENT: Head is atraumatic and normocephalic. Eyes: Bilateral conjunctivae are clear. Bilateral pupils are equally round and reactive. NECK: Supple. No JVD. CARDIOVASCULAR: S1, S2, without murmur. PULMONARY: Clear to auscultation. GASTROINTESTINAL: Soft and nontender without guarding. Positive bowel sounds. MUSCULOSKELETAL: No clubbing. No cyanosis noted. ASSESSMENT: 1. Psychosis. 2. Dementia. 3. Hypertension. 4. Atrial fibrillation. 5. Hyperlipidemia. 6. Diabetes. 7. Coronary artery disease. PLAN: We will keep the patient to inpatient Psychiatric Unit. We will follow up with a psychiatrist to monitor the patient's condition and behavior. Treatment plans were discussed with the patient's nurse. Treatment plans were discussed with Dr. Evans. JOB# [id number]
[2019-04-13] MEDS: INSULIN LISPRO SLIDING SCALE 100 UNITS/ML UNIT SUBQ SCH ×4 (06:33→21:26)
[2019-04-13] MEDS: Potassium Chloride 20 mEq ER Tab PO SCH (08:44)
[2019-04-13] MEDS: Multivitamin Tab PO SCH (08:45)
[2019-04-13] MEDS: Apixaban 5 MG TABLET PO SCH ×2 (08:47→17:08)
[2019-04-13] MEDS: Peg-400/Propylene Ophth Soln 5 mL Bottle EACH EYE SCH ×3 (08:48→21:26)
--- NOTE | 2019-04-13 08:53 | Internal Medicine Prog Note ---
Internal Medicine Subjective - Subjective Patient seen and examined:: with staff Patient is:: awake, verbal, talking Per staff patient has:: no adverse event, no episodes of fall Internal Medicine Objective - Results Recent Labs: Laboratory Last Values POC Glucose 156 MG/DL (70 - 105) H 04/12/19 20:31 - Physical Exam Vitals and I&O: Vital Signs Temp 98.1 F 04/12/19 14:49 Pulse 64 04/13/19 08:46 Resp 20 04/12/19 14:49 BP 142/73 04/13/19 08:46 Pulse Ox 98 04/12/19 14:49 Intake & Output 04/12/19 04/13/19 04/13/19 18:59 06:59 18:59 Intake Total 60 Balance 60 Intake: Oral 60 Other: # Voids 1 # Bowel Movements 0 Stool Characteristics Foamy Foamy Foamy Active Medications: Current Medications Acetaminophen (Tylenol) 650 mg PO Q4HR PRN PRN Reason: MILD PAIN Stop: 06/10/19 01:48 Al Hydrox/Mg Hydrox/Simethicone (Maalox) 30 ml PO Q4HR PRN PRN Reason: GI DISTRESS Stop: 06/10/19 01:48 Amlodipine Besylate (Norvasc) 10 mg PO DAILY [facility] Stop: 06/10/19 08:59 Last Admin: 04/13/19 08:46 Dose: 10 mg Aspirin (Ecotrin) 81 mg PO DAILY [facility] Stop: 06/10/19 08:59 Last Admin: 04/13/19 08:45 Dose: 81 mg Atorvastatin Calcium (Lipitor) 40 mg PO HS [facility]; Protocol Stop: 06/10/19 20:59 Last Admin: 04/12/19 20:37 Dose: 40 mg Clopidogrel Bisulfate (Plavix) 75 mg PO DAILY [facility] Stop: 06/10/19 08:59 Last Admin: 04/12/19 10:24 Dose: 75 mg Docusate Sodium (Colace) 100 mg PO BID [facility] Stop: 06/10/19 08:59 Last Admin: 04/13/19 08:45 Dose: 100 mg Duloxetine HCl (Cymbalta) 60 mg PO DAILY [facility]; Protocol Stop: 06/10/19 08:59 Last Admin: 04/13/19 08:46 Dose: 60 mg Insulin Human Lispro (Humalog Insulin Sliding Scale) 0 units SUBQ ACHS [facility]; Protocol Stop: 06/10/19 11:29 Last Admin: 04/13/19 06:33 Dose: Not Given Insulin Human NPH (Novolin N) 10 units SUBQ HS [facility]; Protocol Stop: 06/10/19 20:59 Last Admin: 04/12/19 20:33 Dose: 10 units Lorazepam (Ativan) 0.5 mg PO Q4HR PRN; Protocol PRN Reason: Anxiety Stop: 05/11/19 01:47 Magnesium Hydroxide (Milk Of Magnesia) 30 ml PO HS PRN PRN Reason: Constipation Stop: 06/10/19 01:48 Multivitamins/Vitamin C (Theragran) 1 tab PO DAILY [facility] Stop: 06/10/19 08:59 Last Admin: 04/13/19 08:45 Dose: 1 tab Potassium Chloride (Klor-Con) 20 meq PO DAILY [facility] Stop: 06/10/19 08:59 Last Admin: 04/13/19 08:44 Dose: 20 meq Propylene Glycol (Systane Ophth Soln) 1 drop EACH EYE TID [facility] Stop: 06/10/19 08:59 Last Admin: 04/13/19 08:48 Dose: 1 drop Quetiapine Fumarate (Seroquel) 12.5 mg PO BID [facility]; Protocol Stop: 06/10/19 16:59 Last Admin: 04/13/19 08:45 Dose: 12.5 mg Zolpidem Tartrate (Ambien) 5 mg PO HS PRN PRN Reason: Insomnia Stop: 06/10/19 01:02 General: weak HEENT: NC/AT Neck: Supple Lungs: other (no acute respiratory distress) Cardiovascular: other (irregular- afib) Abdomen: soft, non-tender Internal Medicine Assmt/Plan - Assessment Assessment: Psychosis Dementia HTN Afib Hyperlipidemia DM CAD - Plan Plan: Continuation of care. Monitor Vitals and Labs. Continue present meds as directed. Monitor Diet/ Low sodium diet /Nutritional support. Psych management per Psych. Pain Management. Fall precaution, frequent nursing rounds, and as needed restraints to prevent fall. Safety precaution. Supportive care. Continue collaborating with consulting specialists, case management and nursing team. Will Monitor patient and continue current treatment plan as ordered. Nutritional Asmnt/Malnutr-PDOC - Dietary Evaluation Malnutrition Findings (Please click <Entered> for more info): Nutritional Asmnt/Malnutrition Start: 04/11/19 16: 18 Text: Status: Active Freq: Protocol: Document 04/11/19 16:18 RICHA (Rec: 04/11/19 16:45 RICHA [email or web address]) Nutritional Asmnt/Malnutrition Patient General Information Nutritional Screening Moderate Risk Diagnosis PSYCHOSIS Pertinent Medical Hx/Surgical Hx DM, ARTHRITIS, HTN, ATRIAL FIBRILATION, CAD, HYPERLIPIDEMIA Subjective Information PT IS A 83 YEAR OLD MALE ADMITTED C/O LEFT SIDED WEAKNESS. PT WAS DISCHARDGED YESTERDAY, BUT READMITTED WITHIN 24 HOURS. HT: 58 WT: 155 (70.45KG) BMI: 23.57 (NORMAL) GI: WNL BM: NOT NOTED I/O: NOT NOTED SKIN: WNL ROSALINA: 15 DIET ORDER: PUREED ESTIMATED ENERGY NEEDS: ( GERIATRIC) 0974-0528 KCALS (25-30 KCALS/ KG) 70-85 G PRO (1.0-1.2 G/KG) 9086-1630 ML FLUIDS (35-40 ML/ KG) PT PO INTAKE: 20-30%, PER RN STATEMENT DIETARY IS CURRENTLY PROVIDING 3060 KCALS AND 157 GM PRO. WITH PT PO INTAKE, PT IS RECEIVING AN ESTIMATED 765 KCALS AND 39 PRO REQUIREMENTS- INADEQUATE. RECOMMENDATION OF ENSURE ENLIVE NUTRITIONAL SUPPLEMENT TID TO PROVIDE AN EXTRA 1050 KCALS AND 60 G PRO. Pertinent Medications MAALOX (PRN), LIPITOR, VIT C, KLOR-CON, MOM (PRN) Pertinent Labs 04/10: HGB/HCT 12/36.6, GLUC 180, CA 8.5, ALB 3.2 POC GLUCOSE(LAST 24 HOURS): 175 Nutritional Hx/Data Height 5 ft 8 in Height (Calculated Centimeters) 172.7 Current Weight (lbs) 155 lb Weight (Calculated Kilograms) 70.3 Weight (Calculated Grams) 67254.8 [place] Body Weight 154 % [place] Body Weight 101 Body Mass Index (BMI) 23.6 Weight Status Approriate GI Symptoms Skin Integrity/Comment: WNL Current %PO Negligible < 25% Estimated Nutritional Goals BEE in Kcals: Using Current wt Calories/Kcals/Kg 25-30 Kcals Calculated 1107-3345 Protein: Using Current wt Protein g/k.0-1.2 Protein Calculated 70-85 Fluid: ml 6308-8607 Nutritional Problem 2. Problem Problem ALTERED NUTRITION RELATED LABORATORY VALUES Etiology R/T PATHOPHYSIOLOGICAL CAUSES Signs/Symptoms: AEB GLUC 180, CA 8.5, ALB 3.2 1. Problem Problem INADEQUATE ENERGY INTAKE Etiology R/T POSSIBLE DECREASED APPETITE Signs/Symptoms: AEB RN NOTED PO INTAKE 20-35% Malnutrition Related to Morbid Obesity Malnutrition related to morbid obesity No Intervention/Recommendation Recommendations by RD Increase Calorie Intake Comments 1. CONTINUE PUREE DIET ORDERED 2. ADD ENSURE ENLIVE TID TO PROVIDE AN ADDITIONAL 1050 KCALS AND 60 G PRO. 3. MONITOR PO INTAKE, WT, SKIN INTEGRITY, NUTRITION RELATED LABS. 4. F/U MR IN 3-5 DAYS Expected Outcomes/Goals Expected Outcomes/Goals 1. PO INTAKE TO MEET AT LEAST 75% NUTRITIONAL NEEDS 2. NUTRITION RELATED LABS TO TREND WNL IN 2-3 DAYS 3. WT STABILITY, SKIN INTEGRITY WNL
--- NOTE | 2019-04-13 13:11 | Progress Notes ---
DATE: SUBJECTIVE: The patient was seen and evaluated. The patient's chart reviewed. Dependent 83-year-old male, anxious, agitated. MEDICATION RECONCILIATION REVIEW: Cymbalta 60 mg a day, quetiapine 12.5 p.o. b.i.d. Today on [id number] evaluation, the patient refuses interview, withdrawn, disengaged. MENTAL STATUS EXAMINATION: Withdrawn, disengaged and irritable. ASSESSMENT AND PLAN: Depression, irritable, agitated, refusing interview, demonstrated poor impulse control, unable to formulate a safe plan ____ structured environment. We will continue monitoring and evaluating with primary psychiatrist treatment plan and goals. [facility]# [id number]
[2019-04-13] MEDS: INSULIN HUMAN ISOPHANE (NPH) 100 UNITS/ML SUBQ SCH (21:42)
--- NOTE | 2019-04-14 04:13 | Progress Notes ---
DATE: 04/13/2019 The patient was seen and evaluated. The patient is interviewed. I am covering for Dr. Almanza. SUBJECTIVE: Today, on [id number] evaluation, the patient was irritable, easily agitated, difficulty following redirections and disengagement. On examination, disengaged, irritable, agitated. ASSESSMENT AND PLAN: History of dementia, severe. We will continue with the recent initiations of the medication, Cymbalta 60 mg, lorazepam as needed, Seroquel 12.5 mg b.i.d. while we obtain more collateral baseline information, primary psychiatric team treatment plan and goals. JOB# [id number]
[2019-04-14] MEDS: INSULIN LISPRO SLIDING SCALE 100 UNITS/ML UNIT SUBQ SCH ×4 (06:43→21:56)
[2019-04-14] MEDS: Peg-400/Propylene Ophth Soln 5 mL Bottle EACH EYE SCH ×3 (08:32→21:54)
[2019-04-14] MEDS: Multivitamin Tab PO SCH (08:32)
[2019-04-14] MEDS: Potassium Chloride 20 mEq ER Tab PO SCH (08:35)
[2019-04-14] MEDS: Apixaban 5 MG TABLET PO SCH ×2 (08:35→16:54)
--- NOTE | 2019-04-14 11:09 | Internal Medicine Prog Note ---
Internal Medicine Subjective - Subjective Service Date: 04/14/19 Patient seen and examined:: with staff Patient is:: awake, verbal, talking Patient Complaints of:: other Per staff patient has:: no adverse event, no episodes of fall Internal Medicine Objective - Results Recent Labs: Laboratory Last Values POC Glucose 107 MG/DL (70 - 105) H 04/14/19 06:43 - Physical Exam Vitals and I&O: Vital Signs Temp 97.8 F 04/14/19 06:35 Pulse 79 04/14/19 08:32 Resp 20 04/14/19 06:35 BP 126/68 04/14/19 08:32 Pulse Ox 96 04/14/19 06:35 Intake & Output 04/13/19 04/14/19 04/14/19 18:59 06:59 18:59 Intake Total 850 240 Output Total 1 Balance 850 239 Intake: Oral 850 240 Output: Urine/Stool Mix 1 Other: # Voids 3 3 # Bowel Movements 1 0 Stool Characteristics Foamy Foamy Foamy Active Medications: Current Medications Acetaminophen (Tylenol) 650 mg PO Q4HR PRN PRN Reason: MILD PAIN Stop: 06/10/19 01:48 Al Hydrox/Mg Hydrox/Simethicone (Maalox) 30 ml PO Q4HR PRN PRN Reason: GI DISTRESS Stop: 06/10/19 01:48 Amlodipine Besylate (Norvasc) 10 mg PO DAILY [facility] Stop: 06/10/19 08:59 Last Admin: 04/14/19 08:32 Dose: 10 mg Aspirin (Ecotrin) 81 mg PO DAILY [facility] Stop: 06/10/19 08:59 Last Admin: 04/14/19 08:35 Dose: 81 mg Atorvastatin Calcium (Lipitor) 40 mg PO HS [facility]; Protocol Stop: 06/10/19 20:59 Last Admin: 04/13/19 21:26 Dose: 40 mg Clopidogrel Bisulfate (Plavix) 75 mg PO DAILY [facility] Stop: 06/10/19 08:59 Last Admin: 04/14/19 08:32 Dose: 75 mg Docusate Sodium (Colace) 100 mg PO BID [facility] Stop: 06/10/19 08:59 Last Admin: 04/14/19 08:35 Dose: 100 mg Duloxetine HCl (Cymbalta) 60 mg PO DAILY [facility]; Protocol Stop: 06/10/19 08:59 Last Admin: 04/14/19 08:32 Dose: 60 mg Insulin Human Lispro (Humalog Insulin Sliding Scale) 0 units SUBQ ACHS [facility]; Protocol Stop: 06/10/19 11:29 Last Admin: 04/14/19 06:43 Dose: Not Given Insulin Human NPH (Novolin N) 10 units SUBQ HS [facility]; Protocol Stop: 06/10/19 20:59 Last Admin: 04/13/19 21:42 Dose: 10 units Lorazepam (Ativan) 0.5 mg PO Q4HR PRN; Protocol PRN Reason: Anxiety Stop: 05/11/19 01:47 Magnesium Hydroxide (Milk Of Magnesia) 30 ml PO HS PRN PRN Reason: Constipation Stop: 06/10/19 01:48 Multivitamins/Vitamin C (Theragran) 1 tab PO DAILY [facility] Stop: 06/10/19 08:59 Last Admin: 04/14/19 08:32 Dose: 1 tab Potassium Chloride (Klor-Con) 20 meq PO DAILY [facility] Stop: 06/10/19 08:59 Last Admin: 04/14/19 08:35 Dose: 20 meq Propylene Glycol (Systane Ophth Soln) 1 drop EACH EYE TID [facility] Stop: 06/10/19 08:59 Last Admin: 04/14/19 08:32 Dose: 1 drop Quetiapine Fumarate (Seroquel) 12.5 mg PO BID [facility]; Protocol Stop: 06/10/19 16:59 Last Admin: 04/14/19 08:34 Dose: 12.5 mg Zolpidem Tartrate (Ambien) 5 mg PO HS PRN PRN Reason: Insomnia Stop: 06/10/19 01:02 Physical Exam: Patient is very agitated and remains disengaged. General: weak HEENT: NC/AT Neck: Supple Lungs: other (no acute respiratory distress) Cardiovascular: other (irregular- afib) Abdomen: soft, non-tender Extremities: clear Neurological: no change Internal Medicine Assmt/Plan - Assessment Assessment: Edema and pain of left hand. Severe Dementia. Agitation. Restless. Generalized weakness. Hx of Atrial fibrillation. Hx of CAD. Hx of Hyperlipidemia. - Plan Plan: Continuation of care. Monitor Labs. Continue present meds as directed. Monitor vitals, Continue BP meds as directed. Monitor Diet/Nutritional support. Psych management per Psych. Pain Management. Physical therapy. Occupational therapy. Fall precaution, frequent nursing rounds, and as needed restraints to prevent fall. Safety precaution. Supportive care. Continue collaborating with consulting specialists, case management and nursing team. Will Monitor patient and continue current treatment plan as ordered. Nutritional Asmnt/Malnutr-PDOC - Dietary Evaluation Malnutrition Findings (Please click <Entered> for more info): Nutritional Asmnt/Malnutrition Start: 04/11/19 16: 18 Text: Status: Active Freq: Protocol: Document 04/11/19 16:18 NAINAMILES (Rec: 04/11/19 16:45 NAINAMILES [email or web address]) Nutritional Asmnt/Malnutrition Patient General Information Nutritional Screening Moderate Risk Diagnosis PSYCHOSIS Pertinent Medical Hx/Surgical Hx DM, ARTHRITIS, HTN, ATRIAL FIBRILATION, CAD, HYPERLIPIDEMIA Subjective Information PT IS A 83 YEAR OLD MALE ADMITTED C/O LEFT SIDED WEAKNESS. PT WAS DISCHARDGED YESTERDAY, BUT READMITTED WITHIN 24 HOURS. HT: 58 WT: 155 (70.45KG) BMI: 23.57 (NORMAL) GI: WNL BM: NOT NOTED I/O: NOT NOTED SKIN: WNL ROSALINA: 15 DIET ORDER: PUREED ESTIMATED ENERGY NEEDS: ( GERIATRIC) 6099-1585 KCALS (25-30 KCALS/ KG) 70-85 G PRO (1.0-1.2 G/KG) 6637-1829 ML FLUIDS (35-40 ML/ KG) PT PO INTAKE: 20-30%, PER RN STATEMENT DIETARY IS CURRENTLY PROVIDING 3060 KCALS AND 157 GM PRO. WITH PT PO INTAKE, PT IS RECEIVING AN ESTIMATED 765 KCALS AND 39 PRO REQUIREMENTS- INADEQUATE. RECOMMENDATION OF ENSURE ENLIVE NUTRITIONAL SUPPLEMENT TID TO PROVIDE AN EXTRA 1050 KCALS AND 60 G PRO. Pertinent Medications MAALOX (PRN), LIPITOR, VIT C, KLOR-CON, MOM (PRN) Pertinent Labs 04/10: HGB/HCT 12/36.6, GLUC 180, CA 8.5, ALB 3.2 POC GLUCOSE(LAST 24 HOURS): 175 Nutritional Hx/Data Height 1.73 m Height (Calculated Centimeters) 172.7 Current Weight (lbs) 70.307 kg Weight (Calculated Kilograms) 70.3 Weight (Calculated Grams) 92723.8 [place] Body Weight 154 % [place] Body Weight 101 Body Mass Index (BMI) 23.6 Weight Status Approriate GI Symptoms Skin Integrity/Comment: WNL Current %PO Negligible < 25% Estimated Nutritional Goals BEE in Kcals: Using Current wt Calories/Kcals/Kg 25-30 Kcals Calculated 6374-0687 Protein: Using Current wt Protein g/k.0-1.2 Protein Calculated 70-85 Fluid: ml 8991-6212 Nutritional Problem 2. Problem Problem ALTERED NUTRITION RELATED LABORATORY VALUES Etiology R/T PATHOPHYSIOLOGICAL CAUSES Signs/Symptoms: AEB GLUC 180, CA 8.5, ALB 3.2 1. Problem Problem INADEQUATE ENERGY INTAKE Etiology R/T POSSIBLE DECREASED APPETITE Signs/Symptoms: AEB RN NOTED PO INTAKE 20-35% Malnutrition Related to Morbid Obesity Malnutrition related to morbid obesity No Intervention/Recommendation Recommendations by RD Increase Calorie Intake Comments 1. CONTINUE PUREE DIET ORDERED 2. ADD ENSURE ENLIVE TID TO PROVIDE AN ADDITIONAL 1050 KCALS AND 60 G PRO. 3. MONITOR PO INTAKE, WT, SKIN INTEGRITY, NUTRITION RELATED LABS. 4. F/U MR IN 3-5 DAYS Expected Outcomes/Goals Expected Outcomes/Goals 1. PO INTAKE TO MEET AT LEAST 75% NUTRITIONAL NEEDS 2. NUTRITION RELATED LABS TO TREND WNL IN 2-3 DAYS 3. WT STABILITY, SKIN INTEGRITY WNL
--- NOTE | 2019-04-14 17:36 | Progress Notes ---
DATE: 04/10/2019 Case was discussed with staff of the patient, reviewed records. This is an 82-year-old male who was admitted on 04/10/2019 because of agitation. He came from Med-Surg unit after being transferred from [facility]. The patient was anxious, agitated, compliant with the medications. He continues to have poor insight. Unable to make safe plan for self-care or even participate in a meaningful conversation, easily agitated, Cymbalta 60 mg daily, Seroquel 12.5 mg twice a day. Unable to carry on a conversation, withdrawn, disengaged. His roommate is telling that he has been throwing his food on the floor. No side effects with the medication, no sedation, no nausea, no extrapyramidal symptoms. ____ more time on the medication for adjusting the dose. We will continue the patient in group therapy, milieu therapy, and adjust the medication as needed. JOB# [id number]
[2019-04-14] MEDS: INSULIN HUMAN ISOPHANE (NPH) 100 UNITS/ML SUBQ SCH (21:55)
[2019-04-15] MEDS: INSULIN LISPRO SLIDING SCALE 100 UNITS/ML UNIT SUBQ SCH ×4 (06:48→21:26)
[2019-04-15] MEDS: Multivitamin Tab PO SCH (08:11)
[2019-04-15] MEDS: Peg-400/Propylene Ophth Soln 5 mL Bottle EACH EYE SCH ×3 (08:12→21:25)
[2019-04-15] MEDS: Potassium Chloride 20 mEq ER Tab PO SCH (08:12)
[2019-04-15] MEDS: Apixaban 5 MG TABLET PO SCH ×2 (08:12→16:35)
--- NOTE | 2019-04-15 18:48 | Internal Medicine Prog Note ---
Internal Medicine Subjective - Subjective Service Date: 04/15/19 Patient is:: awake, verbal, talking Patient Complaints of:: other Per staff patient has:: no adverse event, no episodes of fall Internal Medicine Objective - Results Recent Labs: Laboratory Last Values POC Glucose 81 MG/DL (70 - 105) 04/15/19 06:30 - Physical Exam Vitals and I&O: Vital Signs Temp 97.7 F 04/15/19 14:55 Pulse 61 04/15/19 14:55 Resp 20 04/15/19 14:55 BP 136/57 04/15/19 14:55 Pulse Ox 99 04/15/19 14:55 Intake & Output 04/14/19 04/15/19 04/15/19 18:59 06:59 18:59 Intake Total 850 240 Output Total 1 Balance 850 239 Intake: Oral 850 240 Output: Urine/Stool Mix 1 Other: # Voids 4 3 # Bowel Movements 1 0 Stool Characteristics Foamy Active Medications: Current Medications Acetaminophen (Tylenol) 650 mg PO Q4HR PRN PRN Reason: MILD PAIN Stop: 06/10/19 01:48 Al Hydrox/Mg Hydrox/Simethicone (Maalox) 30 ml PO Q4HR PRN PRN Reason: GI DISTRESS Stop: 06/10/19 01:48 Amlodipine Besylate (Norvasc) 10 mg PO DAILY [facility] Stop: 06/10/19 08:59 Last Admin: 04/15/19 08:11 Dose: 10 mg Aspirin (Ecotrin) 81 mg PO DAILY [facility] Stop: 06/10/19 08:59 Last Admin: 04/15/19 08:12 Dose: 81 mg Atorvastatin Calcium (Lipitor) 40 mg PO HS [facility]; Protocol Stop: 06/10/19 20:59 Last Admin: 04/14/19 21:54 Dose: 40 mg Clopidogrel Bisulfate (Plavix) 75 mg PO DAILY [facility] Stop: 06/10/19 08:59 Last Admin: 04/15/19 08:11 Dose: 75 mg Docusate Sodium (Colace) 100 mg PO BID [facility] Stop: 06/10/19 08:59 Last Admin: 04/15/19 16:35 Dose: 100 mg Duloxetine HCl (Cymbalta) 60 mg PO DAILY [facility]; Protocol Stop: 06/10/19 08:59 Last Admin: 04/15/19 08:11 Dose: 60 mg Insulin Human Lispro (Humalog Insulin Sliding Scale) 0 units SUBQ ACHS [facility]; Protocol Stop: 06/10/19 11:29 Last Admin: 04/15/19 16:35 Dose: Not Given Insulin Human NPH (Novolin N) 10 units SUBQ HS [facility]; Protocol Stop: 06/10/19 20:59 Last Admin: 04/14/19 21:55 Dose: 10 units Lorazepam (Ativan) 0.5 mg PO Q4HR PRN; Protocol PRN Reason: Anxiety Stop: 05/11/19 01:47 Magnesium Hydroxide (Milk Of Magnesia) 30 ml PO HS PRN PRN Reason: Constipation Stop: 06/10/19 01:48 Multivitamins/Vitamin C (Theragran) 1 tab PO DAILY [facility] Stop: 06/10/19 08:59 Last Admin: 04/15/19 08:11 Dose: 1 tab Potassium Chloride (Klor-Con) 20 meq PO DAILY [facility] Stop: 06/10/19 08:59 Last Admin: 04/15/19 08:12 Dose: 20 meq Propylene Glycol (Systane Ophth Soln) 1 drop EACH EYE TID [facility] Stop: 06/10/19 08:59 Last Admin: 04/15/19 13:08 Dose: 1 drop Quetiapine Fumarate (Seroquel) 12.5 mg PO BID [facility]; Protocol Stop: 06/10/19 16:59 Last Admin: 04/15/19 16:35 Dose: 12.5 mg Zolpidem Tartrate (Ambien) 5 mg PO HS PRN PRN Reason: Insomnia Stop: 06/10/19 01:02 General: weak HEENT: NC/AT Neck: Supple Lungs: other (no acute respiratory distress) Cardiovascular: other (irregular- afib) Abdomen: soft, non-tender Extremities: clear Neurological: no change Nutritional Asmnt/Malnutr-PDOC - Dietary Evaluation Malnutrition Findings (Please click <Entered> for more info): Nutritional Asmnt/Malnutrition Start: 04/11/19 16: 18 Text: Status: Active Freq: Protocol: Document 04/11/19 16:18 RICHA (Rec: 04/11/19 16:45 RICHA [id number]) Nutritional Asmnt/Malnutrition Patient General Information Nutritional Screening Moderate Risk Diagnosis PSYCHOSIS Pertinent Medical Hx/Surgical Hx DM, ARTHRITIS, HTN, ATRIAL FIBRILATION, CAD, HYPERLIPIDEMIA Subjective Information PT IS A 83 YEAR OLD MALE ADMITTED C/O LEFT SIDED WEAKNESS. PT WAS DISCHARDGED YESTERDAY, BUT READMITTED WITHIN 24 HOURS. HT: 58 WT: 155 (70.45KG) BMI: 23.57 (NORMAL) GI: WNL BM: NOT NOTED I/O: NOT NOTED SKIN: WNL ROSALINA: 15 DIET ORDER: PUREED ESTIMATED ENERGY NEEDS: ( GERIATRIC) 0753-7129 KCALS (25-30 KCALS/ KG) 70-85 G PRO (1.0-1.2 G/KG) 9300-6752 ML FLUIDS (35-40 ML/ KG) PT PO INTAKE: 20-30%, PER RN STATEMENT DIETARY IS CURRENTLY PROVIDING 3060 KCALS AND 157 GM PRO. WITH PT PO INTAKE, PT IS RECEIVING AN ESTIMATED 765 KCALS AND 39 PRO REQUIREMENTS- INADEQUATE. RECOMMENDATION OF ENSURE ENLIVE NUTRITIONAL SUPPLEMENT TID TO PROVIDE AN EXTRA 1050 KCALS AND 60 G PRO. Pertinent Medications MAALOX (PRN), LIPITOR, VIT C, KLOR-CON, MOM (PRN) Pertinent Labs 04/10: HGB/HCT 12/36.6, GLUC 180, CA 8.5, ALB 3.2 POC GLUCOSE(LAST 24 HOURS): 175 Nutritional Hx/Data Height 5 ft 8 in Height (Calculated Centimeters) 172.7 Current Weight (lbs) 155 lb Weight (Calculated Kilograms) 70.3 Weight (Calculated Grams) 80073.8 [place] Body Weight 154 % [place] Body Weight 101 Body Mass Index (BMI) 23.6 Weight Status Approriate GI Symptoms Skin Integrity/Comment: WNL Current %PO Negligible < 25% Estimated Nutritional Goals BEE in Kcals: Using Current wt Calories/Kcals/Kg 25-30 Kcals Calculated 2029-8641 Protein: Using Current wt Protein g/k.0-1.2 Protein Calculated 70-85 Fluid: ml 1097-8875 Nutritional Problem 2. Problem Problem ALTERED NUTRITION RELATED LABORATORY VALUES Etiology R/T PATHOPHYSIOLOGICAL CAUSES Signs/Symptoms: AEB GLUC 180, CA 8.5, ALB 3.2 1. Problem Problem INADEQUATE ENERGY INTAKE Etiology R/T POSSIBLE DECREASED APPETITE Signs/Symptoms: AEB RN NOTED PO INTAKE 20-35% Malnutrition Related to Morbid Obesity Malnutrition related to morbid obesity No Intervention/Recommendation Recommendations by RD Increase Calorie Intake Comments 1. CONTINUE PUREE DIET ORDERED 2. ADD ENSURE ENLIVE TID TO PROVIDE AN ADDITIONAL 1050 KCALS AND 60 G PRO. 3. MONITOR PO INTAKE, WT, SKIN INTEGRITY, NUTRITION RELATED LABS. 4. F/U MR IN 3-5 DAYS Expected Outcomes/Goals Expected Outcomes/Goals 1. PO INTAKE TO MEET AT LEAST 75% NUTRITIONAL NEEDS 2. NUTRITION RELATED LABS TO TREND WNL IN 2-3 DAYS 3. WT STABILITY, SKIN INTEGRITY WNL
[2019-04-15] MEDS: INSULIN HUMAN ISOPHANE (NPH) 100 UNITS/ML SUBQ SCH (21:26)
--- NOTE | 2019-04-16 00:02 | Progress Notes ---
DATE: 04/15/2019 Case was discussed with staff of the patient, reviewed records. The patient continues to be internally preoccupied, though he is more alert. He was trying to feed himself today. Continues to have poor insight, unpredictable, impulsive, no side effects of the medication, no sedation, no nausea, no extrapyramidal symptoms. We will continue to work with patient in group therapy, milieu therapy, and adjust the medication as needed. JOB# [id number]
[2019-04-16] MEDS: INSULIN LISPRO SLIDING SCALE 100 UNITS/ML UNIT SUBQ SCH ×4 (06:33→21:31)
[2019-04-16] MEDS: Potassium Chloride 20 mEq ER Tab PO SCH (08:55)
[2019-04-16] MEDS: Multivitamin Tab PO SCH (08:56)
[2019-04-16] MEDS: Peg-400/Propylene Ophth Soln 5 mL Bottle EACH EYE SCH ×3 (08:56→21:31)
[2019-04-16] MEDS: Apixaban 5 MG TABLET PO SCH ×2 (08:56→16:18)
--- NOTE | 2019-04-16 15:13 | Internal Medicine Prog Note ---
Internal Medicine Subjective - Subjective Service Date: 04/16/19 Patient seen and examined:: with staff Patient is:: awake, verbal, talking, confused Patient Complaints of:: other Per staff patient has:: no adverse event, no episodes of fall Internal Medicine Objective - Results Recent Labs: Laboratory Last Values POC Glucose 118 MG/DL (70 - 105) H 04/16/19 12:01 - Physical Exam Vitals and I&O: Vital Signs Temp 97.2 F 04/16/19 06:42 Pulse 60 04/16/19 08:55 Resp 18 04/16/19 06:42 BP 157/87 04/16/19 08:55 Pulse Ox 97 04/16/19 06:42 Intake & Output 04/15/19 04/16/19 04/16/19 18:59 06:59 18:59 Intake Total 120 Balance 120 Intake: Oral 120 Other: # Voids 2 # Bowel Movements 0 Active Medications: Current Medications Acetaminophen (Tylenol) 650 mg PO Q4HR PRN PRN Reason: MILD PAIN Stop: 06/10/19 01:48 Al Hydrox/Mg Hydrox/Simethicone (Maalox) 30 ml PO Q4HR PRN PRN Reason: GI DISTRESS Stop: 06/10/19 01:48 Amlodipine Besylate (Norvasc) 10 mg PO DAILY [facility] Stop: 06/10/19 08:59 Last Admin: 04/16/19 08:55 Dose: 10 mg Aspirin (Ecotrin) 81 mg PO DAILY [facility] Stop: 06/10/19 08:59 Last Admin: 04/16/19 08:55 Dose: 81 mg Atorvastatin Calcium (Lipitor) 40 mg PO HS [facility]; Protocol Stop: 06/10/19 20:59 Last Admin: 04/15/19 21:25 Dose: 40 mg Clopidogrel Bisulfate (Plavix) 75 mg PO DAILY [facility] Stop: 06/10/19 08:59 Last Admin: 04/16/19 08:55 Dose: 75 mg Docusate Sodium (Colace) 100 mg PO BID [facility] Stop: 06/10/19 08:59 Last Admin: 04/16/19 08:55 Dose: 100 mg Duloxetine HCl (Cymbalta) 60 mg PO DAILY [facility]; Protocol Stop: 06/10/19 08:59 Last Admin: 04/16/19 08:56 Dose: 60 mg Insulin Human Lispro (Humalog Insulin Sliding Scale) 0 units SUBQ ACHS [facility]; Protocol Stop: 06/10/19 11:29 Last Admin: 04/16/19 12:05 Dose: Not Given Insulin Human NPH (Novolin N) 10 units SUBQ HS [facility]; Protocol Stop: 06/10/19 20:59 Last Admin: 04/15/19 21:26 Dose: 10 units Lorazepam (Ativan) 0.5 mg PO Q4HR PRN; Protocol PRN Reason: Anxiety Stop: 05/11/19 01:47 Magnesium Hydroxide (Milk Of Magnesia) 30 ml PO HS PRN PRN Reason: Constipation Stop: 06/10/19 01:48 Multivitamins/Vitamin C (Theragran) 1 tab PO DAILY [facility] Stop: 06/10/19 08:59 Last Admin: 04/16/19 08:56 Dose: 1 tab Potassium Chloride (Klor-Con) 20 meq PO DAILY [facility] Stop: 06/10/19 08:59 Last Admin: 04/16/19 08:55 Dose: 20 meq Propylene Glycol (Systane Ophth Soln) 1 drop EACH EYE TID [facility] Stop: 06/10/19 08:59 Last Admin: 04/16/19 14:25 Dose: 1 drop Quetiapine Fumarate (Seroquel) 12.5 mg PO BID [facility]; Protocol Stop: 06/10/19 16:59 Last Admin: 04/16/19 08:58 Dose: 12.5 mg Zolpidem Tartrate (Ambien) 5 mg PO HS PRN PRN Reason: Insomnia Stop: 06/10/19 01:02 Physical Exam: Patient remains disengaged, easily frustrated. General: weak HEENT: NC/AT Neck: Supple Lungs: other (no acute respiratory distress) Cardiovascular: other (irregular- afib) Abdomen: soft, non-tender Extremities: clear Neurological: no change Internal Medicine Assmt/Plan - Assessment Assessment: Edema and pain of left hand. Severe Dementia. Agitation. Restless. Generalized weakness. Hx of Atrial fibrillation. Hx of CAD. Hx of Hyperlipidemia. - Plan Plan: Continuation of care. Monitor Labs. Continue present meds as directed. Monitor vitals, Continue BP meds as directed. Monitor Diet/Nutritional support. Psych management per Psych. Pain Management. Physical therapy. Occupational therapy. Fall precaution, frequent nursing rounds, and as needed restraints to prevent fall. Safety precaution. Supportive care. Continue collaborating with consulting specialists, case management and nursing team. Will Monitor patient and continue current treatment plan as ordered. Nutritional Asmnt/Malnutr-PDOC - Dietary Evaluation Malnutrition Findings (Please click <Entered> for more info): Nutritional Asmnt/Malnutrition Start: 04/11/19 16: 18 Text: Status: Active Freq: Protocol: Document 04/11/19 16:18 RICHA (Rec: 04/11/19 16:45 RICHA [email or web address]) Nutritional Asmnt/Malnutrition Patient General Information Nutritional Screening Moderate Risk Diagnosis PSYCHOSIS Pertinent Medical Hx/Surgical Hx DM, ARTHRITIS, HTN, ATRIAL FIBRILATION, CAD, HYPERLIPIDEMIA Subjective Information PT IS A 83 YEAR OLD MALE ADMITTED C/O LEFT SIDED WEAKNESS. PT WAS DISCHARDGED YESTERDAY, BUT READMITTED WITHIN 24 HOURS. HT: 58 WT: 155 (70.45KG) BMI: 23.57 (NORMAL) GI: WNL BM: NOT NOTED I/O: NOT NOTED SKIN: WNL ROSALINA: 15 DIET ORDER: PUREED ESTIMATED ENERGY NEEDS: ( GERIATRIC) 3147-3140 KCALS (25-30 KCALS/ KG) 70-85 G PRO (1.0-1.2 G/KG) 8243-2055 ML FLUIDS (35-40 ML/ KG) PT PO INTAKE: 20-30%, PER RN STATEMENT DIETARY IS CURRENTLY PROVIDING 3060 KCALS AND 157 GM PRO. WITH PT PO INTAKE, PT IS RECEIVING AN ESTIMATED 765 KCALS AND 39 PRO REQUIREMENTS- INADEQUATE. RECOMMENDATION OF ENSURE ENLIVE NUTRITIONAL SUPPLEMENT TID TO PROVIDE AN EXTRA 1050 KCALS AND 60 G PRO. Pertinent Medications MAALOX (PRN), LIPITOR, VIT C, KLOR-CON, MOM (PRN) Pertinent Labs 04/10: HGB/HCT 12/36.6, GLUC 180, CA 8.5, ALB 3.2 POC GLUCOSE(LAST 24 HOURS): 175 Nutritional Hx/Data Height 1.73 m Height (Calculated Centimeters) 172.7 Current Weight (lbs) 70.307 kg Weight (Calculated Kilograms) 70.3 Weight (Calculated Grams) 07304.8 [place] Body Weight 154 % [place] Body Weight 101 Body Mass Index (BMI) 23.6 Weight Status Approriate GI Symptoms Skin Integrity/Comment: WNL Current %PO Negligible < 25% Estimated Nutritional Goals BEE in Kcals: Using Current wt Calories/Kcals/Kg 25-30 Kcals Calculated 7938-7797 Protein: Using Current wt Protein g/k.0-1.2 Protein Calculated 70-85 Fluid: ml 9236-2647 Nutritional Problem 2. Problem Problem ALTERED NUTRITION RELATED LABORATORY VALUES Etiology R/T PATHOPHYSIOLOGICAL CAUSES Signs/Symptoms: AEB GLUC 180, CA 8.5, ALB 3.2 1. Problem Problem INADEQUATE ENERGY INTAKE Etiology R/T POSSIBLE DECREASED APPETITE Signs/Symptoms: AEB RN NOTED PO INTAKE 20-35% Malnutrition Related to Morbid Obesity Malnutrition related to morbid obesity No Intervention/Recommendation Recommendations by RD Increase Calorie Intake Comments 1. CONTINUE PUREE DIET ORDERED 2. ADD ENSURE ENLIVE TID TO PROVIDE AN ADDITIONAL 1050 KCALS AND 60 G PRO. 3. MONITOR PO INTAKE, WT, SKIN INTEGRITY, NUTRITION RELATED LABS. 4. F/U MR IN 3-5 DAYS Expected Outcomes/Goals Expected Outcomes/Goals 1. PO INTAKE TO MEET AT LEAST 75% NUTRITIONAL NEEDS 2. NUTRITION RELATED LABS TO TREND WNL IN 2-3 DAYS 3. WT STABILITY, SKIN INTEGRITY WNL
[2019-04-16] MEDS: INSULIN HUMAN ISOPHANE (NPH) 100 UNITS/ML SUBQ SCH (21:32)
[2019-04-17] MEDS: INSULIN LISPRO SLIDING SCALE 100 UNITS/ML UNIT SUBQ SCH ×4 (06:44→21:37)
--- NOTE | 2019-04-17 08:35 | Progress Notes ---
DATE: 04/17/2019 SUBJECTIVE: Chart was reviewed and the patient interviewed. Also discussed the patient's condition with the staff and reviewed records and labs. The patient is still depressed, isolative and withdrawn. The patient is interacting minimally with others. The patient also is feeling hopeless and is still isolative. Otherwise, the patient is resisting care and he seems to be yelling less than before. Also, during interview he is confused and preoccupied and with poverty of speech. ASSESSMENT: The patient is still depressed and confused. TREATMENT PLAN: We will continue monitoring his behavior closely. Also, continue Seroquel in a dose of 12.5 mg twice a day and Cymbalta 60 mg every day and continue to work on his ineffective coping and follow up closely. JOB# [id number]
[2019-04-17] MEDS: Multivitamin Tab PO SCH (09:16)
[2019-04-17] MEDS: Apixaban 5 MG TABLET PO SCH ×2 (09:19→17:09)
[2019-04-17] MEDS: Peg-400/Propylene Ophth Soln 5 mL Bottle EACH EYE SCH ×3 (09:19→21:29)
[2019-04-17] MEDS: Potassium Chloride 20 mEq ER Tab PO SCH (09:23)
--- NOTE | 2019-04-17 17:34 | Internal Medicine Prog Note ---
Internal Medicine Subjective - Subjective Service Date: 04/17/19 Patient is:: awake, verbal, talking, confused Patient Complaints of:: other Per staff patient has:: no adverse event, no episodes of fall Internal Medicine Objective - Results Recent Labs: Laboratory Last Values POC Glucose 133 MG/DL (70 - 105) H 04/17/19 16:05 - Physical Exam Vitals and I&O: Vital Signs Temp 98.6 F 04/17/19 14:00 Pulse 60 04/17/19 14:00 Resp 20 04/17/19 14:00 BP 115/53 04/17/19 14:00 Pulse Ox 98 04/17/19 14:00 Intake & Output 04/16/19 04/17/19 04/17/19 18:59 06:59 18:59 Intake Total 240 Balance 240 Intake: Oral 240 Other: # Voids 2 # Bowel Movements 0 Active Medications: Current Medications Acetaminophen (Tylenol) 650 mg PO Q4HR PRN PRN Reason: MILD PAIN Stop: 06/10/19 01:48 Al Hydrox/Mg Hydrox/Simethicone (Maalox) 30 ml PO Q4HR PRN PRN Reason: GI DISTRESS Stop: 06/10/19 01:48 Amlodipine Besylate (Norvasc) [address] [facility] Stop: 06/10/19 08:59 Last Admin: 04/17/19 09:17 Dose: 10 mg Aspirin (Ecotrin) [address] [facility] Stop: 06/10/19 08:59 Last Admin: 04/17/19 09:16 Dose: 81 mg Atorvastatin Calcium (Lipitor) [address] [facility]; Protocol Stop: 06/10/19 20:59 Last Admin: 04/16/19 21:29 Dose: 40 mg Clopidogrel Bisulfate (Plavix) [address] [facility] Stop: 06/10/19 08:59 Last Admin: 04/17/19 09:16 Dose: 75 mg Docusate Sodium (Colace) [address] [facility] Stop: 06/10/19 08:59 Last Admin: 04/17/19 17:10 Dose: 100 mg Duloxetine HCl (Cymbalta) [address] [facility]; Protocol Stop: 06/10/19 08:59 Last Admin: 04/17/19 09:16 Dose: 60 mg Insulin Human Lispro (Humalog Insulin Sliding Scale) [address] [facility]; Protocol Stop: 06/10/19 11:29 Last Admin: 04/17/19 16:39 Dose: Not Given Insulin Human NPH (Novolin N) 10 units SUBQ HS [facility]; Protocol Stop: 06/10/19 20:59 Last Admin: 04/16/19 21:32 Dose: 10 units Lorazepam (Ativan) 0.5 mg PO Q4HR PRN; Protocol PRN Reason: Anxiety Stop: 05/11/19 01:47 Magnesium Hydroxide (Milk Of Magnesia) 30 ml PO HS PRN PRN Reason: Constipation Stop: 06/10/19 01:48 Multivitamins/Vitamin C (Theragran) 1 tab PO DAILY [facility] Stop: 06/10/19 08:59 Last Admin: 04/17/19 09:16 Dose: 1 tab Potassium Chloride (Klor-Con) 20 meq PO DAILY [facility] Stop: 06/10/19 08:59 Last Admin: 04/17/19 09:23 Dose: 20 meq Propylene Glycol (Systane Ophth Soln) 1 drop EACH EYE TID [facility] Stop: 06/10/19 08:59 Last Admin: 04/17/19 14:11 Dose: 1 drop Quetiapine Fumarate (Seroquel) 12.[address] [facility]; Protocol Stop: 06/10/19 16:59 Last Admin: 04/17/19 17:10 Dose: 12.5 mg Zolpidem Tartrate (Ambien) 5 mg PO HS PRN PRN Reason: Insomnia Stop: 06/10/19 01:02 General: weak HEENT: NC/AT Neck: Supple Lungs: other (no acute respiratory distress) Cardiovascular: other (irregular- afib) Abdomen: soft, non-tender Extremities: clear Neurological: no change Nutritional Asmnt/Malnutr-PDOC - Dietary Evaluation Malnutrition Findings (Please click <Entered> for more info): Nutritional Asmnt/Malnutrition Start: 04/11/19 16: 18 Text: Status: Active Freq: Protocol: Document 04/11/19 16:18 RICHA (Rec: 04/11/19 16:45 RICHA [email or web address]) Nutritional Asmnt/Malnutrition Patient General Information Nutritional Screening Moderate Risk Diagnosis PSYCHOSIS Pertinent Medical Hx/Surgical Hx DM, ARTHRITIS, HTN, ATRIAL FIBRILATION, CAD, HYPERLIPIDEMIA Subjective Information PT IS A 83 YEAR OLD MALE ADMITTED C/O LEFT SIDED WEAKNESS. PT WAS DISCHARDGED YESTERDAY, BUT READMITTED WITHIN 24 HOURS. HT: 58 WT: 155 (70.45KG) BMI: 23.57 (NORMAL) GI: WNL BM: NOT NOTED I/O: NOT NOTED SKIN: WNL ROSALINA: 15 DIET ORDER: PUREED ESTIMATED ENERGY NEEDS: ( GERIATRIC) 1507-7881 KCALS (25-30 KCALS/ KG) 70-85 G PRO (1.0-1.2 G/KG) 9478-9659 ML FLUIDS (35-40 ML/ KG) PT PO INTAKE: 20-30%, PER RN STATEMENT DIETARY IS CURRENTLY PROVIDING 3060 KCALS AND 157 GM PRO. WITH PT PO INTAKE, PT IS RECEIVING AN ESTIMATED 765 KCALS AND 39 PRO REQUIREMENTS- INADEQUATE. RECOMMENDATION OF ENSURE ENLIVE NUTRITIONAL SUPPLEMENT TID TO PROVIDE AN EXTRA 1050 KCALS AND 60 G PRO. Pertinent Medications MAALOX (PRN), LIPITOR, VIT C, KLOR-CON, MOM (PRN) Pertinent Labs 04/10: HGB/HCT 12/36.6, GLUC 180, CA 8.5, ALB 3.2 POC GLUCOSE(LAST 24 HOURS): 175 Nutritional Hx/Data Height 5 ft 8 in Height (Calculated Centimeters) 172.7 Current Weight (lbs) 155 lb Weight (Calculated Kilograms) 70.3 Weight (Calculated Grams) 47984.8 [place] Body Weight 154 % [place] Body Weight 101 Body Mass Index (BMI) 23.6 Weight Status Approriate GI Symptoms Skin Integrity/Comment: WNL Current %PO Negligible < 25% Estimated Nutritional Goals BEE in Kcals: Using Current wt Calories/Kcals/Kg 25-30 Kcals Calculated 4182-1813 Protein: Using Current wt Protein g/k.0-1.2 Protein Calculated 70-85 Fluid: ml 9696-3927 Nutritional Problem 2. Problem Problem ALTERED NUTRITION RELATED LABORATORY VALUES Etiology R/T PATHOPHYSIOLOGICAL CAUSES Signs/Symptoms: AEB GLUC 180, CA 8.5, ALB 3.2 1. Problem Problem INADEQUATE ENERGY INTAKE Etiology R/T POSSIBLE DECREASED APPETITE Signs/Symptoms: AEB RN NOTED PO INTAKE 20-35% Malnutrition Related to Morbid Obesity Malnutrition related to morbid obesity No Intervention/Recommendation Recommendations by RD Increase Calorie Intake Comments 1. CONTINUE PUREE DIET ORDERED 2. ADD ENSURE ENLIVE TID TO PROVIDE AN ADDITIONAL 1050 KCALS AND 60 G PRO. 3. MONITOR PO INTAKE, WT, SKIN INTEGRITY, NUTRITION RELATED LABS. 4. F/U MR IN 3-5 DAYS Expected Outcomes/Goals Expected Outcomes/Goals 1. PO INTAKE TO MEET AT LEAST 75% NUTRITIONAL NEEDS 2. NUTRITION RELATED LABS TO TREND WNL IN 2-3 DAYS 3. WT STABILITY, SKIN INTEGRITY WNL
[2019-04-17] MEDS: INSULIN HUMAN ISOPHANE (NPH) 100 UNITS/ML SUBQ SCH (21:34)
--- NOTE | 2019-04-17 23:24 | Progress Notes ---
DATE: 04/16/2019 SUBJECTIVE: Chart was reviewed and the patient interviewed. Also discussed the patient's condition with the staff and reviewed records and labs. The patient seems to be calmer than before and seems to be slightly less agitated. He still needs lots of redirections. The patient also is still having episodes of anger. He was yelling and screaming, but also it seems to be less. Otherwise, the patient continued to comply with taking his medications. The patient denies any side effects of medications. ASSESSMENT: The patient is still agitated and depressed. TREATMENT PLAN: Continue to monitor his behavior and his condition. Also, continue Cymbalta in a dose of 60 mg every day and Seroquel 12.5 mg twice a day and continue to follow up closely. [facility]# [id number]
[2019-04-18] MEDS: INSULIN LISPRO SLIDING SCALE 100 UNITS/ML UNIT SUBQ SCH ×4 (06:48→20:16)
[2019-04-18] MEDS: Apixaban 5 MG TABLET PO SCH ×2 (10:13→17:38)
[2019-04-18] MEDS: Peg-400/Propylene Ophth Soln 5 mL Bottle EACH EYE SCH ×3 (10:13→21:07)
[2019-04-18] MEDS: Multivitamin Tab PO SCH (10:13)
[2019-04-18] MEDS: Potassium Chloride 20 mEq ER Tab PO SCH (10:14)
--- NOTE | 2019-04-18 15:47 | Internal Medicine Prog Note ---
Internal Medicine Subjective - Subjective Service Date: 04/18/19 Patient seen and examined:: with staff Patient is:: awake, verbal, talking, confused Patient Complaints of:: other Per staff patient has:: no adverse event, no episodes of fall Internal Medicine Objective - Results Recent Labs: Laboratory Last Values POC Glucose 163 MG/DL (70 - 105) H 04/18/19 11:56 - Physical Exam Vitals and I&O: Vital Signs Temp 97.9 F 04/18/19 06:47 Pulse 88 04/18/19 10:12 Resp 20 04/18/19 13:46 BP 140/62 04/18/19 10:12 Pulse Ox 95 04/18/19 06:47 Intake & Output 04/17/19 04/18/19 04/18/19 18:59 06:59 18:59 Intake Total 900 240 Balance 900 240 Intake: Oral 900 240 Other: # Voids 3 2 # Bowel Movements 0 1 Active Medications: Current Medications Acetaminophen (Tylenol) 650 mg PO Q4HR PRN PRN Reason: MILD PAIN Stop: 06/10/19 01:48 Al Hydrox/Mg Hydrox/Simethicone (Maalox) 30 ml PO Q4HR PRN PRN Reason: GI DISTRESS Stop: 06/10/19 01:48 Amlodipine Besylate (Norvasc) 10 mg PO DAILY [facility] Stop: 06/10/19 08:59 Last Admin: 04/18/19 10:12 Dose: Not Given Aspirin (Ecotrin) 81 mg PO DAILY [facility] Stop: 06/10/19 08:59 Last Admin: 04/18/19 10:13 Dose: Not Given Atorvastatin Calcium (Lipitor) 40 mg PO HS [facility]; Protocol Stop: 06/10/19 20:59 Last Admin: 04/17/19 21:29 Dose: 40 mg Clopidogrel Bisulfate (Plavix) 75 mg PO DAILY [facility] Stop: 06/10/19 08:59 Last Admin: 04/18/19 10:12 Dose: Not Given Docusate Sodium (Colace) 100 mg PO BID [facility] Stop: 06/10/19 08:59 Last Admin: 04/18/19 10:13 Dose: Not Given Duloxetine HCl (Cymbalta) 60 mg PO DAILY [facility]; Protocol Stop: 06/10/19 08:59 Last Admin: 04/18/19 10:12 Dose: Not Given Insulin Human Lispro (Humalog Insulin Sliding Scale) 0 units SUBQ ACHS [facility]; Protocol Stop: 06/10/19 11:29 Last Admin: 04/18/19 12:00 Dose: Not Given Insulin Human NPH (Novolin N) 10 units SUBQ HS [facility]; Protocol Stop: 06/10/19 20:59 Last Admin: 04/17/19 21:34 Dose: 10 units Lorazepam (Ativan) 0.5 mg PO Q4HR PRN; Protocol PRN Reason: Anxiety Stop: 05/11/19 01:47 Magnesium Hydroxide (Milk Of Magnesia) 30 ml PO HS PRN PRN Reason: Constipation Stop: 06/10/19 01:48 Multivitamins/Vitamin C (Theragran) 1 tab PO DAILY [facility] Stop: 06/10/19 08:59 Last Admin: 04/18/19 10:13 Dose: Not Given Potassium Chloride (Klor-Con) 20 meq PO DAILY [facility] Stop: 06/10/19 08:59 Last Admin: 04/18/19 10:14 Dose: Not Given Propylene Glycol (Systane Ophth Soln) 1 drop EACH EYE TID [facility] Stop: 06/10/19 08:59 Last Admin: 04/18/19 13:55 Dose: Not Given Quetiapine Fumarate (Seroquel) 12.5 mg PO BID [facility]; Protocol Stop: 06/10/19 16:59 Last Admin: 04/18/19 10:13 Dose: Not Given Trazodone HCl (Desyrel) 25 mg PO HS [facility]; Protocol Stop: 06/17/19 20:59 Zolpidem Tartrate (Ambien) 5 mg PO HS PRN PRN Reason: Insomnia Stop: 06/10/19 01:02 Physical Exam: Patient is less agitated and depressed. General: weak HEENT: NC/AT Neck: Supple Lungs: other (no acute respiratory distress) Cardiovascular: other (irregular- afib) Abdomen: soft, non-tender Extremities: clear Neurological: no change Internal Medicine Assmt/Plan - Assessment Assessment: Edema and pain of left hand. Severe Dementia. Agitation. Restless. Generalized weakness. Hx of Atrial fibrillation. Hx of CAD. Hx of Hyperlipidemia. - Plan Plan: Continuation of care. Monitor Labs. Continue present meds as directed. Monitor vitals, Continue BP meds as directed. Monitor Diet/Nutritional support. Psych management per Psych. Pain Management. Physical therapy. Occupational therapy. Fall precaution, frequent nursing rounds, and as needed restraints to prevent fall. Safety precaution. Supportive care. Continue collaborating with consulting specialists, case management and nursing team. Will Monitor patient and continue current treatment plan as ordered. Nutritional Asmnt/Malnutr-PDOC - Dietary Evaluation Malnutrition Findings (Please click <Entered> for more info): Nutritional Asmnt/Malnutrition Start: 04/11/19 16: 18 Text: Status: Active Freq: Protocol: Document 04/11/19 16:18 RICHA (Rec: 04/11/19 16:45 RICHA [email or web address]) Nutritional Asmnt/Malnutrition Patient General Information Nutritional Screening Moderate Risk Diagnosis PSYCHOSIS Pertinent Medical Hx/Surgical Hx DM, ARTHRITIS, HTN, ATRIAL FIBRILATION, CAD, HYPERLIPIDEMIA Subjective Information PT IS A 83 YEAR OLD MALE ADMITTED C/O LEFT SIDED WEAKNESS. PT WAS DISCHARDGED YESTERDAY, BUT READMITTED WITHIN 24 HOURS. HT: 58 WT: 155 (70.45KG) BMI: 23.57 (NORMAL) GI: WNL BM: NOT NOTED I/O: NOT NOTED SKIN: WNL ROSALINA: 15 DIET ORDER: PUREED ESTIMATED ENERGY NEEDS: ( GERIATRIC) 3439-6587 KCALS (25-30 KCALS/ KG) 70-85 G PRO (1.0-1.2 G/KG) 7714-0466 ML FLUIDS (35-40 ML/ KG) PT PO INTAKE: 20-30%, PER RN STATEMENT DIETARY IS CURRENTLY PROVIDING 3060 KCALS AND 157 GM PRO. WITH PT PO INTAKE, PT IS RECEIVING AN ESTIMATED 765 KCALS AND 39 PRO REQUIREMENTS- INADEQUATE. RECOMMENDATION OF ENSURE ENLIVE NUTRITIONAL SUPPLEMENT TID TO PROVIDE AN EXTRA 1050 KCALS AND 60 G PRO. Pertinent Medications MAALOX (PRN), LIPITOR, VIT C, KLOR-CON, MOM (PRN) Pertinent Labs 04/10: HGB/HCT 12/36.6, GLUC 180, CA 8.5, ALB 3.2 POC GLUCOSE(LAST 24 HOURS): 175 Nutritional Hx/Data Height 1.73 m Height (Calculated Centimeters) 172.7 Current Weight (lbs) 70.307 kg Weight (Calculated Kilograms) 70.3 Weight (Calculated Grams) 42131.8 [place] Body Weight 154 % [place] Body Weight 101 Body Mass Index (BMI) 23.6 Weight Status Approriate GI Symptoms Skin Integrity/Comment: WNL Current %PO Negligible < 25% Estimated Nutritional Goals BEE in Kcals: Using Current wt Calories/Kcals/Kg 25-30 Kcals Calculated 1426-3540 Protein: Using Current wt Protein g/k.0-1.2 Protein Calculated 70-85 Fluid: ml 0773-1978 Nutritional Problem 2. Problem Problem ALTERED NUTRITION RELATED LABORATORY VALUES Etiology R/T PATHOPHYSIOLOGICAL CAUSES Signs/Symptoms: AEB GLUC 180, CA 8.5, ALB 3.2 1. Problem Problem INADEQUATE ENERGY INTAKE Etiology R/T POSSIBLE DECREASED APPETITE Signs/Symptoms: AEB RN NOTED PO INTAKE 20-35% Malnutrition Related to Morbid Obesity Malnutrition related to morbid obesity No Intervention/Recommendation Recommendations by RD Increase Calorie Intake Comments 1. CONTINUE PUREE DIET ORDERED 2. ADD ENSURE ENLIVE TID TO PROVIDE AN ADDITIONAL 1050 KCALS AND 60 G PRO. 3. MONITOR PO INTAKE, WT, SKIN INTEGRITY, NUTRITION RELATED LABS. 4. F/U MR IN 3-5 DAYS Expected Outcomes/Goals Expected Outcomes/Goals 1. PO INTAKE TO MEET AT LEAST 75% NUTRITIONAL NEEDS 2. NUTRITION RELATED LABS TO TREND WNL IN 2-3 DAYS 3. WT STABILITY, SKIN INTEGRITY WNL
--- NOTE | 2019-04-18 18:36 | Progress Notes ---
DATE: 04/18/2019 SUBJECTIVE: Chart was reviewed and the patient interviewed. Also discussed the patient's condition with the staff and reviewed records and labs. The patient is still agitated and confused. The patient also is severely angry and he is yelling and screaming constantly for no apparent reason except his paranoia. Increased anger and paranoia during helping him with his ADLs. The patient also tends to take his clothes off and he is taking his hospital gown off and also uncovers himself when the staff cover him with a blanket. Easily agitated and easily irritable. The patient also has difficulty sleeping at night and according to staff, he did not sleep at all last night and he still needs close monitoring. Vital signs are stable. No new labs available for review. His blood sugar yesterday was 252, which is high since his admission. We will continue monitoring his blood sugar and working on adjusting of his blood sugar. At the same time, we will add trazodone 25 mg at bedtime. Hopefully, that will help him to sleep better at night. JOB# [id number]
[2019-04-18] MEDS: INSULIN HUMAN ISOPHANE (NPH) 100 UNITS/ML SUBQ SCH (20:16)
[2019-04-19] MEDS: INSULIN LISPRO SLIDING SCALE 100 UNITS/ML UNIT SUBQ SCH ×4 (06:29→20:55)
[2019-04-19] MEDS: Multivitamin Tab PO SCH (09:45)
[2019-04-19] MEDS: Potassium Chloride 20 mEq ER Tab PO SCH (09:45)
[2019-04-19] MEDS: Apixaban 5 MG TABLET PO SCH ×2 (09:45→17:44)
[2019-04-19] MEDS: Peg-400/Propylene Ophth Soln 5 mL Bottle EACH EYE SCH ×3 (09:45→20:56)
--- NOTE | 2019-04-19 16:30 | Progress Notes ---
DATE: 04/19/2019 SUBJECTIVE: The patient was seen in his room. The patient is awake, poor historian, appears to be guarded, agitated easily, and gets frustrated with episodes of behavioral outbursts. Otherwise, the patient appears to be in no acute distress. OBJECTIVE: VITAL SIGNS: Temperature 97.7, heart rate of 69, blood pressure 134/74, respirations 19, and 96% on room air. HEENT: Head is atraumatic and normocephalic. Eyes: Bilateral conjunctivae are clear. Bilateral pupils are equally round and reactive. NECK: Supple. No JVD. CARDIOVASCULAR: S1, S2, without murmur. PULMONARY: Clear to auscultation. GASTROINTESTINAL: Soft and nontender without guarding. Positive bowel sounds. MUSCULOSKELETAL: No clubbing. No cyanosis noted. ASSESSMENT: 1. Dementia. 2. Hypertension. 3. Atrial fibrillation. 4. Hyperlipidemia. 5. Diabetes. 6. Coronary artery disease. PLAN: We will keep the patient inpatient in the Psychiatric Unit. We will follow up with a psychiatrist to monitor the patient's condition and behavior. Treatment plans were discussed with the patient's nurse. Treatment plans were discussed with Dr. Evans. JOB# [id number]
[2019-04-19] MEDS: INSULIN HUMAN ISOPHANE (NPH) 100 UNITS/ML SUBQ SCH (20:55)
--- NOTE | 2019-04-19 23:43 | Progress Notes ---
DATE: 04/19/2019 SUBJECTIVE: Chart was reviewed and the patient interviewed. Also discussed the patient's condition with the staff and reviewed the records and labs. The patient is still extremely angry and he is still acting bizarre. The patient also is taking off his clothes and yelling and screaming and has difficulty following any of staff directions. Also is still suspicious and paranoid and resisting care. Otherwise, the patient is compliant with taking his medications. ASSESSMENT: The patient is still agitated and yelling and screaming and needs lots of redirections. TREATMENT PLAN: Continue to monitor his behavior and his condition closely. Also, continue adjusting psychotropic medications and follow up with discharge plans. [facility]# [id number]
[2019-04-20] MEDS: INSULIN LISPRO SLIDING SCALE 100 UNITS/ML UNIT SUBQ SCH ×4 (06:59→21:10)
[2019-04-20] MEDS: Potassium Chloride 20 mEq ER Tab PO SCH (08:46)
[2019-04-20] MEDS: Multivitamin Tab PO SCH (08:46)
[2019-04-20] MEDS: Peg-400/Propylene Ophth Soln 5 mL Bottle EACH EYE SCH ×3 (08:47→21:10)
[2019-04-20] MEDS: Apixaban 5 MG TABLET PO SCH ×2 (08:51→17:00)
--- NOTE | 2019-04-20 13:44 | Internal Medicine Prog Note ---
Internal Medicine Subjective - Subjective Service Date: 04/20/19 Patient is:: awake, verbal, talking, agitated, confused Patient Complaints of:: other Per staff patient has:: no adverse event, no episodes of fall Internal Medicine Objective - Results Recent Labs: Laboratory Last Values POC Glucose 189 MG/DL (70 - 105) H 04/18/19 19:50 - Physical Exam Vitals and I&O: Vital Signs Temp 97.5 F 04/20/19 05:56 Pulse 59 04/20/19 05:56 Resp 20 04/20/19 05:56 BP 137/56 04/20/19 05:56 Pulse Ox 98 04/20/19 05:56 Intake & Output 04/19/19 04/20/19 04/20/19 18:59 06:59 18:59 Intake Total 1200 240 Balance 1200 240 Intake: Oral 1200 240 Other: # Voids 3 2 # Bowel Movements 0 Stool Characteristics Soft Formed Active Medications: Current Medications Acetaminophen (Tylenol) 650 mg PO Q4HR PRN PRN Reason: MILD PAIN Stop: 06/10/19 01:48 Al Hydrox/Mg Hydrox/Simethicone (Maalox) 30 ml PO Q4HR PRN PRN Reason: GI DISTRESS Stop: 06/10/19 01:48 Amlodipine Besylate (Norvasc) 10 mg PO DAILY [facility] Stop: 06/10/19 08:59 Last Admin: 04/20/19 08:46 Dose: Not Given Aspirin (Ecotrin) 81 mg PO DAILY [facility] Stop: 06/10/19 08:59 Last Admin: 04/20/19 08:44 Dose: 81 mg Atorvastatin Calcium (Lipitor) 40 mg PO HS [facility]; Protocol Stop: 06/10/19 20:59 Last Admin: 04/19/19 20:54 Dose: 40 mg Clopidogrel Bisulfate (Plavix) 75 mg PO DAILY [facility] Stop: 06/10/19 08:59 Last Admin: 04/20/19 08:45 Dose: 75 mg Docusate Sodium (Colace) 100 mg PO BID [facility] Stop: 06/10/19 08:59 Last Admin: 04/20/19 08:45 Dose: 100 mg Duloxetine HCl (Cymbalta) 60 mg PO DAILY [facility]; Protocol Stop: 06/10/19 08:59 Last Admin: 04/20/19 08:44 Dose: 60 mg Insulin Human Lispro (Humalog Insulin Sliding Scale) 0 units SUBQ ACHS [facility]; Protocol Stop: 06/10/19 11:29 Last Admin: 04/20/19 11:41 Dose: Not Given Insulin Human NPH (Novolin N) 10 units SUBQ HS [facility]; Protocol Stop: 06/10/19 20:59 Last Admin: 04/19/19 20:55 Dose: 10 units Lorazepam (Ativan) 0.5 mg PO Q4HR PRN; Protocol PRN Reason: Anxiety Stop: 05/11/19 01:47 Magnesium Hydroxide (Milk Of Magnesia) 30 ml PO HS PRN PRN Reason: Constipation Stop: 06/10/19 01:48 Multivitamins/Vitamin C (Theragran) 1 tab PO DAILY [facility] Stop: 06/10/19 08:59 Last Admin: 04/20/19 08:46 Dose: 1 tab Potassium Chloride (Klor-Con) 20 meq PO DAILY [facility] Stop: 06/10/19 08:59 Last Admin: 04/20/19 08:46 Dose: 20 meq Propylene Glycol (Systane Ophth Soln) 1 drop EACH EYE TID [facility] Stop: 06/10/19 08:59 Last Admin: 04/20/19 08:47 Dose: 1 drop Quetiapine Fumarate (Seroquel) 12.5 mg PO BID [facility]; Protocol Stop: 06/10/19 16:59 Last Admin: 04/20/19 08:46 Dose: 12.5 mg Trazodone HCl (Desyrel) 25 mg PO HS [facility]; Protocol Stop: 06/17/19 20:59 Zolpidem Tartrate (Ambien) 5 mg PO HS PRN PRN Reason: Insomnia Stop: 06/10/19 01:02 Physical Exam: Patient is paranoid, angry, needs a lot of redirection, resisting care. General: weak HEENT: NC/AT Neck: Supple Lungs: other (no acute respiratory distress) Cardiovascular: other (irregular- afib) Abdomen: soft, non-tender Extremities: clear Neurological: no change Internal Medicine Assmt/Plan - Assessment Assessment: Edema and pain of left hand. Severe Dementia. Agitation. Paranoid. Restless. Generalized weakness. Hx of Atrial fibrillation. Hx of CAD. Hx of Hyperlipidemia. - Plan Plan: Continuation of care. Monitor Labs. Continue present meds as directed. Monitor vitals, Continue BP meds as directed. Monitor Diet/Nutritional support. Psych management per Psych. Pain Management. Physical therapy. Occupational therapy. Fall precaution, frequent nursing rounds, and as needed restraints to prevent fall. Safety precaution. Supportive care. Continue collaborating with consulting specialists, case management and nursing team. Will Monitor patient and continue present care management. Nutritional Asmnt/Malnutr-PDOC - Dietary Evaluation Malnutrition Findings (Please click <Entered> for more info): Nutritional Asmnt/Malnutrition Start: 04/11/19 16: 18 Text: Status: Active Freq: Protocol: Document 04/11/19 16:18 NAINAMILES (Rec: 04/11/19 16:45 NAINAMILES [email or web address]) Nutritional Asmnt/Malnutrition Patient General Information Nutritional Screening Moderate Risk Diagnosis PSYCHOSIS Pertinent Medical Hx/Surgical Hx DM, ARTHRITIS, HTN, ATRIAL FIBRILATION, CAD, HYPERLIPIDEMIA Subjective Information PT IS A 83 YEAR OLD MALE ADMITTED C/O LEFT SIDED WEAKNESS. PT WAS DISCHARDGED YESTERDAY, BUT READMITTED WITHIN 24 HOURS. HT: 58 WT: 155 (70.45KG) BMI: 23.57 (NORMAL) GI: WNL BM: NOT NOTED I/O: NOT NOTED SKIN: WNL ROSALINA: 15 DIET ORDER: PUREED ESTIMATED ENERGY NEEDS: ( GERIATRIC) 9604-5447 KCALS (25-30 KCALS/ KG) 70-85 G PRO (1.0-1.2 G/KG) 1979-5188 ML FLUIDS (35-40 ML/ KG) PT PO INTAKE: 20-30%, PER RN STATEMENT DIETARY IS CURRENTLY PROVIDING 3060 KCALS AND 157 GM PRO. WITH PT PO INTAKE, PT IS RECEIVING AN ESTIMATED 765 KCALS AND 39 PRO REQUIREMENTS- INADEQUATE. RECOMMENDATION OF ENSURE ENLIVE NUTRITIONAL SUPPLEMENT TID TO PROVIDE AN EXTRA 1050 KCALS AND 60 G PRO. Pertinent Medications MAALOX (PRN), LIPITOR, VIT C, KLOR-CON, MOM (PRN) Pertinent Labs 04/10: HGB/HCT 12/36.6, GLUC 180, CA 8.5, ALB 3.2 POC GLUCOSE(LAST 24 HOURS): 175 Nutritional Hx/Data Height 1.73 m Height (Calculated Centimeters) 172.7 Current Weight (lbs) 70.307 kg Weight (Calculated Kilograms) 70.3 Weight (Calculated Grams) 90434.8 [place] Body Weight 154 % [place] Body Weight 101 Body Mass Index (BMI) 23.6 Weight Status Approriate GI Symptoms Skin Integrity/Comment: WNL Current %PO Negligible < 25% Estimated Nutritional Goals BEE in Kcals: Using Current wt Calories/Kcals/Kg 25-30 Kcals Calculated 0900-2702 Protein: Using Current wt Protein g/k.0-1.2 Protein Calculated 70-85 Fluid: ml 0267-6200 Nutritional Problem 2. Problem Problem ALTERED NUTRITION RELATED LABORATORY VALUES Etiology R/T PATHOPHYSIOLOGICAL CAUSES Signs/Symptoms: AEB GLUC 180, CA 8.5, ALB 3.2 1. Problem Problem INADEQUATE ENERGY INTAKE Etiology R/T POSSIBLE DECREASED APPETITE Signs/Symptoms: AEB RN NOTED PO INTAKE 20-35% Malnutrition Related to Morbid Obesity Malnutrition related to morbid obesity No Intervention/Recommendation Recommendations by RD Increase Calorie Intake Comments 1. CONTINUE PUREE DIET ORDERED 2. ADD ENSURE ENLIVE TID TO PROVIDE AN ADDITIONAL 1050 KCALS AND 60 G PRO. 3. MONITOR PO INTAKE, WT, SKIN INTEGRITY, NUTRITION RELATED LABS. 4. F/U MR IN 3-5 DAYS Expected Outcomes/Goals Expected Outcomes/Goals 1. PO INTAKE TO MEET AT LEAST 75% NUTRITIONAL NEEDS 2. NUTRITION RELATED LABS TO TREND WNL IN 2-3 DAYS 3. WT STABILITY, SKIN INTEGRITY WNL
[2019-04-20] MEDS: INSULIN HUMAN ISOPHANE (NPH) 100 UNITS/ML SUBQ SCH (21:11)
--- NOTE | 2019-04-21 01:09 | Progress Notes ---
DATE: SUBJECTIVE: Chart was reviewed and the patient interviewed. Also discussed the patient's condition with the staff and reviewed records and labs. The patient is still extremely confused and anxious and irritable. The patient is still taking off his clothes and getting out of his room naked. Also, he is still having episodes of yelling and screaming. On the other hand, according to staff, the patient seems to be slightly drowsy. Otherwise, the patient is compliant with taking his medications with no side effects. ASSESSMENT: The patient is still psychotic and is still depressed. TREATMENT PLAN: Continue to monitor behavior and condition and continue working on his irritability. [facility]# [id number]
[2019-04-21] MEDS: INSULIN LISPRO SLIDING SCALE 100 UNITS/ML UNIT SUBQ SCH ×4 (06:32→21:32)
[2019-04-21] MEDS: Potassium Chloride 20 mEq ER Tab PO SCH (09:09)
[2019-04-21] MEDS: Apixaban 5 MG TABLET PO SCH ×2 (09:10→17:04)
[2019-04-21] MEDS: Multivitamin Tab PO SCH (09:10)
[2019-04-21] MEDS: Peg-400/Propylene Ophth Soln 5 mL Bottle EACH EYE SCH ×3 (09:13→21:30)
--- NOTE | 2019-04-21 11:11 | Internal Medicine Prog Note ---
Internal Medicine Subjective - Subjective Service Date: 04/21/19 Patient seen and examined:: with staff Patient is:: awake, verbal, talking, agitated, confused Patient Complaints of:: other Per staff patient has:: no adverse event, no episodes of fall Internal Medicine Objective - Results Recent Labs: Laboratory Last Values POC Glucose 189 MG/DL (70 - 105) H 04/18/19 19:50 - Physical Exam Vitals and I&O: Vital Signs Temp 97.4 F 04/21/19 05:32 Pulse 58 04/21/19 09:11 Resp 18 04/21/19 05:32 BP 134/64 04/21/19 09:11 Pulse Ox 97 04/21/19 05:32 Intake & Output 04/20/19 04/21/19 04/21/19 18:59 06:59 18:59 Intake Total 700 120 Balance 700 120 Intake: Oral 700 120 Other: # Voids 2 3 # Bowel Movements 0 0 Active Medications: Current Medications Acetaminophen (Tylenol) 650 mg PO Q4HR PRN PRN Reason: MILD PAIN Stop: 06/10/19 01:48 Al Hydrox/Mg Hydrox/Simethicone (Maalox) 30 ml PO Q4HR PRN PRN Reason: GI DISTRESS Stop: 06/10/19 01:48 Amlodipine Besylate (Norvasc) 10 mg PO DAILY [facility] Stop: 06/10/19 08:59 Last Admin: 04/21/19 09:11 Dose: 10 mg Aspirin (Ecotrin) 81 mg PO DAILY [facility] Stop: 06/10/19 08:59 Last Admin: 04/21/19 09:10 Dose: 81 mg Atorvastatin Calcium (Lipitor) 40 mg PO HS [facility]; Protocol Stop: 06/10/19 20:59 Last Admin: 04/20/19 21:10 Dose: 40 mg Clopidogrel Bisulfate (Plavix) 75 mg PO DAILY [facility] Stop: 06/10/19 08:59 Last Admin: 04/21/19 09:11 Dose: 75 mg Docusate Sodium (Colace) 100 mg PO BID [facility] Stop: 06/10/19 08:59 Last Admin: 04/21/19 09:11 Dose: 100 mg Duloxetine HCl (Cymbalta) 60 mg PO DAILY [facility]; Protocol Stop: 06/10/19 08:59 Last Admin: 04/21/19 09:10 Dose: 60 mg Insulin Human Lispro (Humalog Insulin Sliding Scale) 0 units SUBQ ACHS [facility]; Protocol Stop: 06/10/19 11:29 Last Admin: 04/21/19 06:32 Dose: Not Given Insulin Human NPH (Novolin N) 10 units SUBQ HS [facility]; Protocol Stop: 06/10/19 20:59 Last Admin: 04/20/19 21:11 Dose: 10 units Lorazepam (Ativan) 0.5 mg PO Q4HR PRN; Protocol PRN Reason: Anxiety Stop: 05/11/19 01:47 Magnesium Hydroxide (Milk Of Magnesia) 30 ml PO HS PRN PRN Reason: Constipation Stop: 06/10/19 01:48 Multivitamins/Vitamin C (Theragran) 1 tab PO DAILY [facility] Stop: 06/10/19 08:59 Last Admin: 04/21/19 09:10 Dose: 1 tab Potassium Chloride (Klor-Con) 20 meq PO DAILY [facility] Stop: 06/10/19 08:59 Last Admin: 04/21/19 09:09 Dose: 20 meq Propylene Glycol (Systane Ophth Soln) 1 drop EACH EYE TID [facility] Stop: 06/10/19 08:59 Last Admin: 04/21/19 09:13 Dose: 1 drop Quetiapine Fumarate (Seroquel) 12.5 mg PO BID [facility]; Protocol Stop: 06/10/19 16:59 Last Admin: 04/21/19 09:12 Dose: 12.5 mg Trazodone HCl (Desyrel) 25 mg PO HS [facility]; Protocol Stop: 06/17/19 20:59 Last Admin: 04/20/19 21:09 Dose: 25 mg Zolpidem Tartrate (Ambien) 5 mg PO HS PRN PRN Reason: Insomnia Stop: 06/10/19 01:02 Physical Exam: Patient has beentaking his clothes off and getting out of room naked, having episodes of yelling and screaming, needs monitoring. General: weak HEENT: NC/AT Neck: Supple Lungs: other (no acute respiratory distress) Cardiovascular: other (irregular- afib) Abdomen: soft, non-tender Extremities: clear Neurological: no change Internal Medicine Assmt/Plan - Assessment Assessment: Edema and pain of left hand. Severe Dementia. Agitation. Paranoid. Restless. Generalized weakness. Hx of Atrial fibrillation. Hx of CAD. Hx of Hyperlipidemia. - Plan Plan: Continuation of care. Monitor Labs. Continue present meds as directed. Monitor vitals, Continue BP meds as directed. Monitor Diet/Nutritional support. Psych management per Psych. Pain Management. Physical therapy. Occupational therapy. Fall precaution, frequent nursing rounds, and as needed restraints to prevent fall. Safety precaution. Supportive care. Continue collaborating with consulting specialists, case management and nursing team. Will Monitor patient and continue present care management. Nutritional Asmnt/Malnutr-PDOC - Dietary Evaluation Malnutrition Findings (Please click <Entered> for more info): Nutritional Asmnt/Malnutrition Start: 04/11/19 16: 18 Text: Status: Active Freq: Protocol: Document 04/11/19 16:18 RICHA (Rec: 04/11/19 16:45 RICHA [email or web address]) Nutritional Asmnt/Malnutrition Patient General Information Nutritional Screening Moderate Risk Diagnosis PSYCHOSIS Pertinent Medical Hx/Surgical Hx DM, ARTHRITIS, HTN, ATRIAL FIBRILATION, CAD, HYPERLIPIDEMIA Subjective Information PT IS A 83 YEAR OLD MALE ADMITTED C/O LEFT SIDED WEAKNESS. PT WAS DISCHARDGED YESTERDAY, BUT READMITTED WITHIN 24 HOURS. HT: 58 WT: 155 (70.45KG) BMI: 23.57 (NORMAL) GI: WNL BM: NOT NOTED I/O: NOT NOTED SKIN: WNL ROSALINA: 15 DIET ORDER: PUREED ESTIMATED ENERGY NEEDS: ( GERIATRIC) 4682-9405 KCALS (25-30 KCALS/ KG) 70-85 G PRO (1.0-1.2 G/KG) 5996-0656 ML FLUIDS (35-40 ML/ KG) PT PO INTAKE: 20-30%, PER RN STATEMENT DIETARY IS CURRENTLY PROVIDING 3060 KCALS AND 157 GM PRO. WITH PT PO INTAKE, PT IS RECEIVING AN ESTIMATED 765 KCALS AND 39 PRO REQUIREMENTS- INADEQUATE. RECOMMENDATION OF ENSURE ENLIVE NUTRITIONAL SUPPLEMENT TID TO PROVIDE AN EXTRA 1050 KCALS AND 60 G PRO. Pertinent Medications MAALOX (PRN), LIPITOR, VIT C, KLOR-CON, MOM (PRN) Pertinent Labs 04/10: HGB/HCT 12/36.6, GLUC 180, CA 8.5, ALB 3.2 POC GLUCOSE(LAST 24 HOURS): 175 Nutritional Hx/Data Height 1.73 m Height (Calculated Centimeters) 172.7 Current Weight (lbs) 70.307 kg Weight (Calculated Kilograms) 70.3 Weight (Calculated Grams) 99631.8 [place] Body Weight 154 % [place] Body Weight 101 Body Mass Index (BMI) 23.6 Weight Status Approriate GI Symptoms Skin Integrity/Comment: WNL Current %PO Negligible < 25% Estimated Nutritional Goals BEE in Kcals: Using Current wt Calories/Kcals/Kg 25-30 Kcals Calculated 6753-3889 Protein: Using Current wt Protein g/k.0-1.2 Protein Calculated 70-85 Fluid: ml 7230-5103 Nutritional Problem 2. Problem Problem ALTERED NUTRITION RELATED LABORATORY VALUES Etiology R/T PATHOPHYSIOLOGICAL CAUSES Signs/Symptoms: AEB GLUC 180, CA 8.5, ALB 3.2 1. Problem Problem INADEQUATE ENERGY INTAKE Etiology R/T POSSIBLE DECREASED APPETITE Signs/Symptoms: AEB RN NOTED PO INTAKE 20-35% Malnutrition Related to Morbid Obesity Malnutrition related to morbid obesity No Intervention/Recommendation Recommendations by RD Increase Calorie Intake Comments 1. CONTINUE PUREE DIET ORDERED 2. ADD ENSURE ENLIVE TID TO PROVIDE AN ADDITIONAL 1050 KCALS AND 60 G PRO. 3. MONITOR PO INTAKE, WT, SKIN INTEGRITY, NUTRITION RELATED LABS. 4. F/U MR IN 3-5 DAYS Expected Outcomes/Goals Expected Outcomes/Goals 1. PO INTAKE TO MEET AT LEAST 75% NUTRITIONAL NEEDS 2. NUTRITION RELATED LABS TO TREND WNL IN 2-3 DAYS 3. WT STABILITY, SKIN INTEGRITY WNL
[2019-04-21] MEDS: INSULIN HUMAN ISOPHANE (NPH) 100 UNITS/ML SUBQ SCH ×2 (21:34→22:02)
[2019-04-22] MEDS: INSULIN LISPRO SLIDING SCALE 100 UNITS/ML UNIT SUBQ SCH ×4 (06:42→22:08)
[2019-04-22] MEDS: Potassium Chloride 20 mEq ER Tab PO SCH (09:30)
[2019-04-22] MEDS: Multivitamin Tab PO SCH (09:30)
[2019-04-22] MEDS: Peg-400/Propylene Ophth Soln 5 mL Bottle EACH EYE SCH ×3 (09:31→22:10)
[2019-04-22] MEDS: Apixaban 5 MG TABLET PO SCH ×2 (09:31→17:38)
--- NOTE | 2019-04-22 11:46 | Internal Medicine Prog Note ---
Internal Medicine Subjective - Subjective Service Date: 04/22/19 Patient seen and examined:: with staff Patient is:: awake, verbal, talking, agitated, confused Patient Complaints of:: other Per staff patient has:: no adverse event, no episodes of fall Internal Medicine Objective - Results Recent Labs: Laboratory Last Values POC Glucose 95 MG/DL (70 - 105) 04/21/19 11:23 - Physical Exam Vitals and I&O: Vital Signs Temp 97.5 F 04/22/19 06:11 Pulse 77 04/22/19 09:30 Resp 20 04/22/19 06:11 BP 168/65 04/22/19 09:30 Pulse Ox 98 04/22/19 06:11 Intake & Output 04/21/19 04/22/19 04/22/19 18:59 06:59 18:59 Intake Total 850 200 Balance 850 200 Intake: Oral 850 200 Other: # Voids 3 2 # Bowel Movements 1 1 Active Medications: Current Medications Acetaminophen (Tylenol) 650 mg PO Q4HR PRN PRN Reason: MILD PAIN Stop: 06/10/19 01:48 Al Hydrox/Mg Hydrox/Simethicone (Maalox) 30 ml PO Q4HR PRN PRN Reason: GI DISTRESS Stop: 06/10/19 01:48 Amlodipine Besylate (Norvasc) 10 mg PO DAILY [facility] Stop: 06/10/19 08:59 Last Admin: 04/22/19 09:30 Dose: 10 mg Aspirin (Ecotrin) 81 mg PO DAILY [facility] Stop: 06/10/19 08:59 Last Admin: 04/22/19 09:30 Dose: 81 mg Atorvastatin Calcium (Lipitor) 40 mg PO HS [facility]; Protocol Stop: 06/10/19 20:59 Last Admin: 04/21/19 21:30 Dose: 40 mg Clopidogrel Bisulfate (Plavix) 75 mg PO DAILY [facility] Stop: 06/10/19 08:59 Last Admin: 04/22/19 09:30 Dose: 75 mg Docusate Sodium (Colace) 100 mg PO BID [facility] Stop: 06/10/19 08:59 Last Admin: 04/22/19 09:30 Dose: 100 mg Duloxetine HCl (Cymbalta) 60 mg PO DAILY [facility]; Protocol Stop: 06/10/19 08:59 Last Admin: 04/22/19 09:31 Dose: 60 mg Insulin Human Lispro (Humalog Insulin Sliding Scale) 0 units SUBQ ACHS [facility]; Protocol Stop: 06/10/19 11:29 Last Admin: 04/22/19 11:31 Dose: Not Given Insulin Human NPH (Novolin N) 10 units SUBQ HS [facility]; Protocol Stop: 06/10/19 20:59 Last Admin: 04/21/19 22:02 Dose: 10 units Lorazepam (Ativan) 0.5 mg PO Q4HR PRN; Protocol PRN Reason: Anxiety Stop: 05/11/19 01:47 Magnesium Hydroxide (Milk Of Magnesia) 30 ml PO HS PRN PRN Reason: Constipation Stop: 06/10/19 01:48 Multivitamins/Vitamin C (Theragran) 1 tab PO DAILY [facility] Stop: 06/10/19 08:59 Last Admin: 04/22/19 09:30 Dose: 1 tab Potassium Chloride (Klor-Con) 20 meq PO DAILY [facility] Stop: 06/10/19 08:59 Last Admin: 04/22/19 09:30 Dose: 20 meq Propylene Glycol (Systane Ophth Soln) 1 drop EACH EYE TID [facility] Stop: 06/10/19 08:59 Last Admin: 04/22/19 09:31 Dose: 1 drop Quetiapine Fumarate (Seroquel) 25 mg PO BID [facility]; Protocol Stop: 06/21/19 08:59 Last Admin: 04/22/19 09:31 Dose: 25 mg Trazodone HCl (Desyrel) 25 mg PO HS [facility]; Protocol Stop: 06/17/19 20:59 Last Admin: 04/21/19 21:31 Dose: 25 mg Zolpidem Tartrate (Ambien) 5 mg PO HS PRN PRN Reason: Insomnia Stop: 06/10/19 01:02 Physical Exam: Patient still having episodes of yelling and screaming, needs monitoring. General: weak HEENT: NC/AT Neck: Supple Lungs: other (no acute respiratory distress) Cardiovascular: other (irregular- afib) Abdomen: soft, non-tender Extremities: clear Neurological: no change Internal Medicine Assmt/Plan - Assessment Assessment: Edema and pain of left hand. Severe Dementia. Agitation. Paranoid. Restless. Generalized weakness. Hx of Atrial fibrillation. Hx of CAD. Hx of Hyperlipidemia. - Plan Plan: Continuation of care. Monitor Labs. Continue present meds as directed. Monitor vitals, Continue BP meds as directed. Monitor Diet/Nutritional support. Psych management per Psych. Pain Management. Physical therapy. Occupational therapy. Fall precaution, frequent nursing rounds, and as needed restraints to prevent fall. Safety precaution. Supportive care. Continue collaborating with consulting specialists, case management and nursing team. Will Monitor patient and continue present care management. Nutritional Asmnt/Malnutr-PDOC - Dietary Evaluation Malnutrition Findings (Please click <Entered> for more info): Nutritional Asmnt/Malnutrition Start: 04/11/19 16: 18 Text: Status: Active Freq: Protocol: Document 04/11/19 16:18 RICHA (Rec: 04/11/19 16:45 RICHA [email or web address]) Nutritional Asmnt/Malnutrition Patient General Information Nutritional Screening Moderate Risk Diagnosis PSYCHOSIS Pertinent Medical Hx/Surgical Hx DM, ARTHRITIS, HTN, ATRIAL FIBRILATION, CAD, HYPERLIPIDEMIA Subjective Information PT IS A 83 YEAR OLD MALE ADMITTED C/O LEFT SIDED WEAKNESS. PT WAS DISCHARDGED YESTERDAY, BUT READMITTED WITHIN 24 HOURS. HT: 58 WT: 155 (70.45KG) BMI: 23.57 (NORMAL) GI: WNL BM: NOT NOTED I/O: NOT NOTED SKIN: WNL ROSALINA: 15 DIET ORDER: PUREED ESTIMATED ENERGY NEEDS: ( GERIATRIC) 6672-3331 KCALS (25-30 KCALS/ KG) 70-85 G PRO (1.0-1.2 G/KG) 4032-6807 ML FLUIDS (35-40 ML/ KG) PT PO INTAKE: 20-30%, PER RN STATEMENT DIETARY IS CURRENTLY PROVIDING 3060 KCALS AND 157 GM PRO. WITH PT PO INTAKE, PT IS RECEIVING AN ESTIMATED 765 KCALS AND 39 PRO REQUIREMENTS- INADEQUATE. RECOMMENDATION OF ENSURE ENLIVE NUTRITIONAL SUPPLEMENT TID TO PROVIDE AN EXTRA 1050 KCALS AND 60 G PRO. Pertinent Medications MAALOX (PRN), LIPITOR, VIT C, KLOR-CON, MOM (PRN) Pertinent Labs 04/10: HGB/HCT 12/36.6, GLUC 180, CA 8.5, ALB 3.2 POC GLUCOSE(LAST 24 HOURS): 175 Nutritional Hx/Data Height 1.73 m Height (Calculated Centimeters) 172.7 Current Weight (lbs) 70.307 kg Weight (Calculated Kilograms) 70.3 Weight (Calculated Grams) 42494.8 [place] Body Weight 154 % [place] Body Weight 101 Body Mass Index (BMI) 23.6 Weight Status Approriate GI Symptoms Skin Integrity/Comment: WNL Current %PO Negligible < 25% Estimated Nutritional Goals BEE in Kcals: Using Current wt Calories/Kcals/Kg 25-30 Kcals Calculated 7905-3927 Protein: Using Current wt Protein g/k.0-1.2 Protein Calculated 70-85 Fluid: ml 6148-7342 Nutritional Problem 2. Problem Problem ALTERED NUTRITION RELATED LABORATORY VALUES Etiology R/T PATHOPHYSIOLOGICAL CAUSES Signs/Symptoms: AEB GLUC 180, CA 8.5, ALB 3.2 1. Problem Problem INADEQUATE ENERGY INTAKE Etiology R/T POSSIBLE DECREASED APPETITE Signs/Symptoms: AEB RN NOTED PO INTAKE 20-35% Malnutrition Related to Morbid Obesity Malnutrition related to morbid obesity No Intervention/Recommendation Recommendations by RD Increase Calorie Intake Comments 1. CONTINUE PUREE DIET ORDERED 2. ADD ENSURE ENLIVE TID TO PROVIDE AN ADDITIONAL 1050 KCALS AND 60 G PRO. 3. MONITOR PO INTAKE, WT, SKIN INTEGRITY, NUTRITION RELATED LABS. 4. F/U MR IN 3-5 DAYS Expected Outcomes/Goals Expected Outcomes/Goals 1. PO INTAKE TO MEET AT LEAST 75% NUTRITIONAL NEEDS 2. NUTRITION RELATED LABS TO TREND WNL IN 2-3 DAYS 3. WT STABILITY, SKIN INTEGRITY WNL
--- NOTE | 2019-04-22 16:23 | Progress Notes ---
DATE: SUBJECTIVE: Chart was reviewed and the patient interviewed. Also discussed the patient's condition with the staff and reviewed records and labs. The patient is still confused and forgetful. The patient also is still yelling and screaming, especially during helping him with his ADLs. The patient also is still paranoid and during helping him with his ADLs, the patient states that "I am not a amezcua." He also still has difficulty following any of staff directions. Otherwise, the patient is compliant with taking his medications with no side effect of medications. ASSESSMENT: The patient is still agitated and is still psychotic and needs close monitoring. TREATMENT PLAN: Continue to monitor his behavior and his condition closely. Also, we will increase Seroquel to 25 mg twice a day and continue Cymbalta and trazodone and continue to follow up closely. [facility]# [id number]
[2019-04-22] MEDS: INSULIN HUMAN ISOPHANE (NPH) 100 UNITS/ML SUBQ SCH (22:06)
[2019-04-23] MEDS: INSULIN LISPRO SLIDING SCALE 100 UNITS/ML UNIT SUBQ SCH ×4 (06:54→21:31)
[2019-04-23] MEDS: Multivitamin Tab PO SCH (08:54)
[2019-04-23] MEDS: Potassium Chloride 20 mEq ER Tab PO SCH (08:54)
[2019-04-23] MEDS: Peg-400/Propylene Ophth Soln 5 mL Bottle EACH EYE SCH ×3 (08:55→21:36)
[2019-04-23] MEDS: Apixaban 5 MG TABLET PO SCH ×2 (08:59→17:07)
--- NOTE | 2019-04-23 13:45 | Internal Medicine Prog Note ---
Internal Medicine Subjective - Subjective Service Date: 04/23/19 Patient seen and examined:: with staff Patient is:: awake, verbal, talking, agitated, confused Patient Complaints of:: other Per staff patient has:: no adverse event, no episodes of fall Internal Medicine Objective - Results Recent Labs: Laboratory Last Values POC Glucose 95 MG/DL (70 - 105) 04/21/19 11:23 - Physical Exam Vitals and I&O: Vital Signs Temp 97.6 F 04/23/19 06:22 Pulse 70 04/23/19 08:55 Resp 18 04/23/19 06:22 BP 151/62 04/23/19 08:55 Pulse Ox 99 04/23/19 06:22 Intake & Output 04/22/19 04/23/19 04/23/19 18:59 06:59 18:59 Intake Total 1200 180 Balance 1200 180 Intake: Oral 1200 180 Other: # Voids 3 2 # Bowel Movements 0 0 Active Medications: Current Medications Acetaminophen (Tylenol) 650 mg PO Q4HR PRN PRN Reason: MILD PAIN Stop: 06/10/19 01:48 Al Hydrox/Mg Hydrox/Simethicone (Maalox) 30 ml PO Q4HR PRN PRN Reason: GI DISTRESS Stop: 06/10/19 01:48 Amlodipine Besylate (Norvasc) 10 mg PO DAILY [facility] Stop: 06/10/19 08:59 Last Admin: 04/23/19 08:55 Dose: 10 mg Aspirin (Ecotrin) 81 mg PO DAILY [facility] Stop: 06/10/19 08:59 Last Admin: 04/23/19 08:54 Dose: 81 mg Atorvastatin Calcium (Lipitor) 40 mg PO HS [facility]; Protocol Stop: 06/10/19 20:59 Last Admin: 04/22/19 22:05 Dose: 40 mg Clopidogrel Bisulfate (Plavix) 75 mg PO DAILY [facility] Stop: 06/10/19 08:59 Last Admin: 04/23/19 08:54 Dose: 75 mg Docusate Sodium (Colace) 100 mg PO BID [facility] Stop: 06/10/19 08:59 Last Admin: 04/23/19 08:54 Dose: 100 mg Duloxetine HCl (Cymbalta) 60 mg PO DAILY [facility]; Protocol Stop: 06/10/19 08:59 Last Admin: 04/23/19 08:53 Dose: 60 mg Insulin Human Lispro (Humalog Insulin Sliding Scale) 0 units SUBQ ACHS [facility]; Protocol Stop: 06/10/19 11:29 Last Admin: 04/23/19 11:59 Dose: Not Given Insulin Human NPH (Novolin N) 10 units SUBQ HS [facility]; Protocol Stop: 06/10/19 20:59 Last Admin: 04/22/19 22:06 Dose: 10 units Lorazepam (Ativan) 0.5 mg PO Q4HR PRN; Protocol PRN Reason: Anxiety Stop: 05/11/19 01:47 Magnesium Hydroxide (Milk Of Magnesia) 30 ml PO HS PRN PRN Reason: Constipation Stop: 06/10/19 01:48 Multivitamins/Vitamin C (Theragran) 1 tab PO DAILY [facility] Stop: 06/10/19 08:59 Last Admin: 04/23/19 08:54 Dose: 1 tab Potassium Chloride (Klor-Con) 20 meq PO DAILY [facility] Stop: 06/10/19 08:59 Last Admin: 04/23/19 08:54 Dose: 20 meq Propylene Glycol (Systane Ophth Soln) 1 drop EACH EYE TID [facility] Stop: 06/10/19 08:59 Last Admin: 04/23/19 08:55 Dose: 1 drop Quetiapine Fumarate (Seroquel) 25 mg PO BID [facility]; Protocol Stop: 06/21/19 08:59 Last Admin: 04/23/19 08:55 Dose: 25 mg Trazodone HCl (Desyrel) 25 mg PO HS [facility]; Protocol Stop: 06/17/19 20:59 Last Admin: 04/22/19 22:10 Dose: 25 mg Zolpidem Tartrate (Ambien) 5 mg PO HS PRN PRN Reason: Insomnia Stop: 06/10/19 01:02 Physical Exam: Patient is confused and frgetful, still having episodes of yelling and screaming , needs monitoring. General: weak HEENT: NC/AT Neck: Supple Lungs: other (no acute respiratory distress) Cardiovascular: other (irregular- afib) Abdomen: soft, non-tender Extremities: clear Neurological: no change Internal Medicine Assmt/Plan - Assessment Assessment: Edema and pain of left hand. Severe Dementia. Agitation. Paranoid. Restless. Generalized weakness. Hx of Atrial fibrillation. Hx of CAD. Hx of Hyperlipidemia. - Plan Plan: Continuation of care. Monitor Labs. Continue present meds as directed. Monitor vitals, Continue BP meds as directed. Monitor Diet/Nutritional support. Psych management per Psych. Pain Management. Physical therapy. Occupational therapy. Fall precaution, frequent nursing rounds, and as needed restraints to prevent fall. Safety precaution. Supportive care. Continue collaborating with consulting specialists, case management and nursing team. Will Monitor patient and continue present care management. Nutritional Asmnt/Malnutr-PDOC - Dietary Evaluation Malnutrition Findings (Please click <Entered> for more info): Nutritional Asmnt/Malnutrition Start: 04/11/19 16: 18 Text: Status: Complete Freq: Protocol: Document 04/11/19 16:18 RICHA (Rec: 04/11/19 16:45 RICHA [email or web address]) Nutritional Asmnt/Malnutrition Patient General Information Nutritional Screening Moderate Risk Diagnosis PSYCHOSIS Pertinent Medical Hx/Surgical Hx DM, ARTHRITIS, HTN, ATRIAL FIBRILATION, CAD, HYPERLIPIDEMIA Subjective Information PT IS A 83 YEAR OLD MALE ADMITTED C/O LEFT SIDED WEAKNESS. PT WAS DISCHARDGED YESTERDAY, BUT READMITTED WITHIN 24 HOURS. HT: 58 WT: 155 (70.45KG) BMI: 23.57 (NORMAL) GI: WNL BM: NOT NOTED I/O: NOT NOTED SKIN: WNL ROSALINA: 15 DIET ORDER: PUREED ESTIMATED ENERGY NEEDS: ( GERIATRIC) 7255-5433 KCALS (25-30 KCALS/ KG) 70-85 G PRO (1.0-1.2 G/KG) 9191-3965 ML FLUIDS (35-40 ML/ KG) PT PO INTAKE: 20-30%, PER RN STATEMENT DIETARY IS CURRENTLY PROVIDING 3060 KCALS AND 157 GM PRO. WITH PT PO INTAKE, PT IS RECEIVING AN ESTIMATED 765 KCALS AND 39 PRO REQUIREMENTS- INADEQUATE. RECOMMENDATION OF ENSURE ENLIVE NUTRITIONAL SUPPLEMENT TID TO PROVIDE AN EXTRA 1050 KCALS AND 60 G PRO. Pertinent Medications MAALOX (PRN), LIPITOR, VIT C, KLOR-CON, MOM (PRN) Pertinent Labs 04/10: HGB/HCT 12/36.6, GLUC 180, CA 8.5, ALB 3.2 POC GLUCOSE(LAST 24 HOURS): 175 Nutritional Hx/Data Height 1.73 m Height (Calculated Centimeters) 172.7 Current Weight (lbs) 70.307 kg Weight (Calculated Kilograms) 70.3 Weight (Calculated Grams) 56581.8 [place] Body Weight 154 % [place] Body Weight 101 Body Mass Index (BMI) 23.6 Weight Status Approriate GI Symptoms Skin Integrity/Comment: WNL Current %PO Negligible < 25% Estimated Nutritional Goals BEE in Kcals: Using Current wt Calories/Kcals/Kg 25-30 Kcals Calculated 0735-3063 Protein: Using Current wt Protein g/k.0-1.2 Protein Calculated 70-85 Fluid: ml 6367-0809 Nutritional Problem 2. Problem Problem ALTERED NUTRITION RELATED LABORATORY VALUES Etiology R/T PATHOPHYSIOLOGICAL CAUSES Signs/Symptoms: AEB GLUC 180, CA 8.5, ALB 3.2 1. Problem Problem INADEQUATE ENERGY INTAKE Etiology R/T POSSIBLE DECREASED APPETITE Signs/Symptoms: AEB RN NOTED PO INTAKE 20-35% Malnutrition Related to Morbid Obesity Malnutrition related to morbid obesity No Intervention/Recommendation Recommendations by RD Increase Calorie Intake Comments 1. CONTINUE PUREE DIET ORDERED 2. ADD ENSURE ENLIVE TID TO PROVIDE AN ADDITIONAL 1050 KCALS AND 60 G PRO. 3. MONITOR PO INTAKE, WT, SKIN INTEGRITY, NUTRITION RELATED LABS. 4. F/U MR IN 3-5 DAYS Expected Outcomes/Goals Expected Outcomes/Goals 1. PO INTAKE TO MEET AT LEAST 75% NUTRITIONAL NEEDS 2. NUTRITION RELATED LABS TO TREND WNL IN 2-3 DAYS 3. WT STABILITY, SKIN INTEGRITY WNL
[2019-04-23] MEDS: INSULIN HUMAN ISOPHANE (NPH) 100 UNITS/ML SUBQ SCH (21:28)
--- NOTE | 2019-04-24 00:28 | Progress Notes ---
DATE: 04/23/2019 SUBJECTIVE: Chart was reviewed and the patient interviewed. Also discussed the patient's condition with the staff and reviewed records and labs. The patient continued to be confused and forgetful. Also, he still has episodes of yelling and screaming. The patient also still needs lots of redirections. Otherwise, the patient is compliant with taking his medications, with no side effects of medications. ASSESSMENT: The patient is still agitated and confused. TREATMENT PLAN: Continue to monitor his behavior and his condition closely. Also, continue to work on his ineffective coping and his behavioral modification. [facility]# [id number]
[2019-04-24] MEDS: INSULIN LISPRO SLIDING SCALE 100 UNITS/ML UNIT SUBQ SCH ×4 (06:31→20:59)
[2019-04-24] MEDS: Potassium Chloride 20 mEq ER Tab PO SCH (08:41)
[2019-04-24] MEDS: Apixaban 5 MG TABLET PO SCH ×2 (08:41→16:46)
[2019-04-24] MEDS: Multivitamin Tab PO SCH (08:41)
[2019-04-24] MEDS: Peg-400/Propylene Ophth Soln 5 mL Bottle EACH EYE SCH ×3 (08:44→20:59)
--- NOTE | 2019-04-24 16:09 | Progress Notes ---
DATE: 04/24/2019 Case was discussed with staff of the patient, reviewed records. Covering for Dr. Almanza. This is a well-known case to me, I have seen him before covering for Dr. Almanza. The patient continues to isolate himself, forgetful, confused, staying in bed with episodes of yelling, screaming. He is compliant with the medication with no side effects. No sedation nausea, no extrapyramidal symptoms. We will continue outpatient group therapy, milieu therapy, adjust medication as needed. The patient is on Cymbalta 60 mg daily and Seroquel 25 mg twice a day. I will continue the patient in group therapy, milieu therapy, adjust the medication as needed. [facility]# [id number] MTDD
--- NOTE | 2019-04-24 20:23 | Progress Notes ---
DATE: 04/21/2019 SUBJECTIVE: Chart was reviewed and the patient interviewed. Also discussed the patient's condition with the staff and reviewed the records and labs. The patient is still anxious and restless. The patient also is still easily agitated and needs lots of redirections. Also, is still confused and forgetful. Also, he gets agitated when staff tried to help him with his ADLs. Otherwise, the patient is compliant with taking his medications. No side effects of Cymbalta or Seroquel. ASSESSMENT: The patient still has episodes of agitation and irritability, but seems to be slightly calmer. TREATMENT PLAN: Continue to monitor his behavior and condition closely. Also, continue to work on placement issue and on discharge plans. Questionable if the patient will be able to return to [facility] but continue to work on that. JOB# [id number]
[2019-04-24] MEDS: INSULIN HUMAN ISOPHANE (NPH) 100 UNITS/ML SUBQ SCH (21:00)
[2019-04-25] MEDS: INSULIN LISPRO SLIDING SCALE 100 UNITS/ML UNIT SUBQ SCH ×2 (06:50→11:26)
--- NOTE | 2019-04-25 07:34 | Internal Medicine Prog Note ---
Internal Medicine Subjective - Subjective Service Date: 04/25/19 Patient is:: awake, verbal, talking, agitated, confused Patient Complaints of:: other Per staff patient has:: no adverse event, no episodes of fall Internal Medicine Objective - Results Recent Labs: Laboratory Last Values POC Glucose 95 MG/DL (70 - 105) 04/21/19 11:23 - Physical Exam Vitals and I&O: Vital Signs Temp 97 F 04/25/19 06:14 Pulse 60 04/25/19 06:14 Resp 18 04/25/19 06:14 BP 147/74 04/25/19 06:14 Pulse Ox 100 04/25/19 06:14 Intake & Output 04/24/19 04/25/19 04/25/19 18:59 06:59 18:59 Intake Total 900 120 Balance 900 120 Intake: Oral 900 120 Other: # Voids 3 3 Active Medications: Current Medications Acetaminophen (Tylenol) 650 mg PO Q4HR PRN PRN Reason: MILD PAIN Stop: 06/10/19 01:48 Al Hydrox/Mg Hydrox/Simethicone (Maalox) 30 ml PO Q4HR PRN PRN Reason: GI DISTRESS Stop: 06/10/19 01:48 Amlodipine Besylate (Norvasc) 10 mg PO DAILY [facility] BEDS AT [facility] Stop: 06/10/19 08:59 Last Admin: 04/24/19 08:42 Dose: Not Given Aspirin (Ecotrin) 81 mg PO DAILY [facility]S AT [facility] Stop: 06/10/19 08:59 Last Admin: 04/24/19 08:41 Dose: 81 mg Atorvastatin Calcium (Lipitor) 40 mg PO HS [facility] 234 B[facility]S AT [facility]; Protocol Stop: 06/10/19 20:59 Last Admin: 04/24/19 20:54 Dose: 40 mg Clopidogrel Bisulfate (Plavix) 75 mg PO DAILY [facility] 234 B[facility]S AT [facility] Stop: 06/10/19 08:59 Last Admin: 04/24/19 08:41 Dose: 75 mg Docusate Sodium (Colace) 100 mg PO BID [facility] 234 B[facility]S AT [facility] Stop: 06/10/19 08:59 Last Admin: 04/24/19 17:05 Dose: 100 mg Duloxetine HCl (Cymbalta) 60 mg PO DAILY [facility] 234 BEDS AT [facility]; Protocol Stop: 06/10/19 08:59 Last Admin: 04/24/19 08:41 Dose: 60 mg Insulin Human Lispro (Humalog Insulin Sliding Scale) 0 units SUBQ [facility] COUNTS INCLUDE 234 BEDS AT THE [facility]; Protocol Stop: 06/10/19 11:29 Last Admin: 04/25/19 06:50 Dose: Not Given Insulin Human NPH (Novolin N) 10 units SUBQ HS [facility]; Protocol Stop: 06/10/19 20:59 Last Admin: 04/24/19 21:00 Dose: 10 units Lorazepam (Ativan) 0.5 mg PO Q4HR PRN; Protocol PRN Reason: Anxiety Stop: 05/11/19 01:47 Magnesium Hydroxide (Milk Of Magnesia) 30 ml PO HS PRN PRN Reason: Constipation Stop: 06/10/19 01:48 Multivitamins/Vitamin C (Theragran) 1 tab PO DAILY [facility] Stop: 06/10/19 08:59 Last Admin: 04/24/19 08:41 Dose: 1 tab Potassium Chloride (Klor-Con) 20 meq PO DAILY [facility] Stop: 06/10/19 08:59 Last Admin: 04/24/19 08:41 Dose: 20 meq Propylene Glycol (Systane Ophth Soln) 1 drop EACH EYE TID [facility] Stop: 06/10/19 08:59 Last Admin: 04/24/19 20:59 Dose: 1 drop Quetiapine Fumarate (Seroquel) 25 mg PO BID [facility]; Protocol Stop: 06/21/19 08:59 Last Admin: 04/24/19 16:46 Dose: 25 mg Trazodone HCl (Desyrel) 25 mg PO HS [facility]; Protocol Stop: 06/17/19 20:59 Last Admin: 04/24/19 20:54 Dose: 25 mg Zolpidem Tartrate (Ambien) 5 mg PO HS PRN PRN Reason: Insomnia Stop: 06/10/19 01:02 General: weak HEENT: NC/AT Neck: Supple Lungs: other (no acute respiratory distress) Cardiovascular: other (irregular- afib) Abdomen: soft, non-tender Extremities: clear Neurological: no change Nutritional Asmnt/Malnutr-PDOC - Dietary Evaluation Malnutrition Findings (Please click <Entered> for more info): Nutritional Asmnt/Malnutrition Start: 04/11/19 16: 18 Text: Status: Complete Freq: Protocol: Document 04/11/19 16:18 RICHA (Rec: 04/11/19 16:45 RICHA [id number]) Nutritional Asmnt/Malnutrition Patient General Information Nutritional Screening Moderate Risk Diagnosis PSYCHOSIS Pertinent Medical Hx/Surgical Hx DM, ARTHRITIS, HTN, ATRIAL FIBRILATION, CAD, HYPERLIPIDEMIA Subjective Information PT IS A 83 YEAR OLD MALE ADMITTED C/O LEFT SIDED WEAKNESS. PT WAS DISCHARDGED YESTERDAY, BUT READMITTED WITHIN 24 HOURS. HT: 58 WT: 155 (70.45KG) BMI: 23.57 (NORMAL) GI: WNL BM: NOT NOTED I/O: NOT NOTED SKIN: WNL ROSALINA: 15 DIET ORDER: PUREED ESTIMATED ENERGY NEEDS: ( GERIATRIC) 3821-8658 KCALS (25-30 KCALS/ KG) 70-85 G PRO (1.0-1.2 G/KG) 2643-6652 ML FLUIDS (35-40 ML/ KG) PT PO INTAKE: 20-30%, PER RN STATEMENT DIETARY IS CURRENTLY PROVIDING 3060 KCALS AND 157 GM PRO. WITH PT PO INTAKE, PT IS RECEIVING AN ESTIMATED 765 KCALS AND 39 PRO REQUIREMENTS- INADEQUATE. RECOMMENDATION OF ENSURE ENLIVE NUTRITIONAL SUPPLEMENT TID TO PROVIDE AN EXTRA 1050 KCALS AND 60 G PRO. Pertinent Medications MAALOX (PRN), LIPITOR, VIT C, KLOR-CON, MOM (PRN) Pertinent Labs 04/10: HGB/HCT 12/36.6, GLUC 180, CA 8.5, ALB 3.2 POC GLUCOSE(LAST 24 HOURS): 175 Nutritional Hx/Data Height 5 ft 8 in Height (Calculated Centimeters) 172.7 Current Weight (lbs) 155 lb Weight (Calculated Kilograms) 70.3 Weight (Calculated Grams) 00104.8 [place] Body Weight 154 % [place] Body Weight 101 Body Mass Index (BMI) 23.6 Weight Status Approriate GI Symptoms Skin Integrity/Comment: WNL Current %PO Negligible < 25% Estimated Nutritional Goals BEE in Kcals: Using Current wt Calories/Kcals/Kg 25-30 Kcals Calculated 5188-2906 Protein: Using Current wt Protein g/k.0-1.2 Protein Calculated 70-85 Fluid: ml 3571-8346 Nutritional Problem 2. Problem Problem ALTERED NUTRITION RELATED LABORATORY VALUES Etiology R/T PATHOPHYSIOLOGICAL CAUSES Signs/Symptoms: AEB GLUC 180, CA 8.5, ALB 3.2 1. Problem Problem INADEQUATE ENERGY INTAKE Etiology R/T POSSIBLE DECREASED APPETITE Signs/Symptoms: AEB RN NOTED PO INTAKE 20-35% Malnutrition Related to Morbid Obesity Malnutrition related to morbid obesity No Intervention/Recommendation Recommendations by RD Increase Calorie Intake Comments 1. CONTINUE PUREE DIET ORDERED 2. ADD ENSURE ENLIVE TID TO PROVIDE AN ADDITIONAL 1050 KCALS AND 60 G PRO. 3. MONITOR PO INTAKE, WT, SKIN INTEGRITY, NUTRITION RELATED LABS. 4. F/U MR IN 3-5 DAYS Expected Outcomes/Goals Expected Outcomes/Goals 1. PO INTAKE TO MEET AT LEAST 75% NUTRITIONAL NEEDS 2. NUTRITION RELATED LABS TO TREND WNL IN 2-3 DAYS 3. WT STABILITY, SKIN INTEGRITY WNL
[2019-04-25] MEDS: Potassium Chloride 20 mEq ER Tab PO SCH (08:34)
[2019-04-25] MEDS: Apixaban 5 MG TABLET PO SCH (08:34)
[2019-04-25] MEDS: Multivitamin Tab PO SCH (08:34)
[2019-04-25] MEDS: Peg-400/Propylene Ophth Soln 5 mL Bottle EACH EYE SCH ×2 (08:34→14:11)
--- NOTE | 2019-04-27 16:44 | Discharge Summary ---
DATE OF DISCHARGE: 04/25/2019 PSYCHIATRIC DISCHARGE SUMMARY PATIENT'S AGE: 63. SEX: Male. PHYSICIAN: Dr. Almanza. FINAL DIAGNOSIS/PRIMARY DIAGNOSIS: Unspecified psychosis. SECONDARY DIAGNOSIS: Dementia, moderate to severe, with psychotic features. REASON FOR HOSPITALIZATION: The patient was admitted to the hospital from [facility] because of increased agitation and irritability and inability to follow directions. HOSPITAL COURSE: The patient continued to be in irritable and agitated mood. The patient also was restless. Also, was resisting care. The patient was given Cymbalta in a dose of 60 mg every day and also he was given trazodone to help him sleep at night since he was not sleeping and Seroquel dose adjusted to 25 mg twice a day. Gradually, the patient's affect was brighter. The patient was calmer. He was less agitated and less irritable and it was easier to follow directions. The patient was still forgetful and confused, but no major behavioral problems. The patient was accepted back to [facility]. PHYSICAL EXAMINATION: Physical examination of the patient showed no major medical problems while in the hospital. AFTER DISCHARGE PLANS: The patient will return to [facility] with plan to follow him up there. EXPECTED OUTCOME AFTER DISCHARGE: Fair if the patient continued to take his psychotropic medications and follow up with discharge plans. [facility]# [id number]
== END 2019-04-25 16:00 | DRG 885 ==
LOC: GERO 22:45
PROVIDERS: ADMIT Psychiatry & Neurology Psychiatry; ATTEND Psychiatry & Neurology Psychiatry
DX: F29 Unspecified psychosis not due to a substance or known physiological condition (principal); E11.65 Type 2 diabetes mellitus with hyperglycemia; E11.00 Type 2 diabetes mellitus with hyperosmolarity without nonketotic hyperglycemic-hyperosmolar coma (NKHHC); F03.91 Unspecified dementia, unspecified severity, with behavioral disturbance; I25.10 Atherosclerotic heart disease of native coronary artery without angina pectoris; I10 Essential (primary) hypertension; E78.5 Hyperlipidemia, unspecified; I48.91 Unspecified atrial fibrillation
CPT/HCPCS: 82948-90; 83036-90; 97530; J1815; X3904; Z7610